=== PATIENT | female | born 1965 | race Caucasian/White ===

== ENCOUNTER → 2016-09-29 | Outpatient (CLI) | payer OTHER, MEDICARE ==
[~2016-09-29] MED LIST: AMBIEN PO; AMIT8CAP PO; BACTROBAN TOP; BELS1TAB4 PO; CALCCHW12 PO; CASCARA; COLA100C2; DICY10CA2 OR; DICY10CA2 PO; DICY10EL PO; FERR83TA OR; FISH1000 OR; FLECTOR PATCH; HYDR50TA8 PO; KLON0.5T; KLON1TAB; KLON1TAB OR; LIDO1DIS2 TD; LIDVISCBTL EXT; MELA3TAB PO; MELATONIN PO; META1.7W PO; MILKPOW PO; MIRALEX OR; MORP15TA4; MS C30TA2; MS C30TA2 PO; MSIR30TA PO; NECON; NECON PO; PSYLLIUM; SENN8.6T5; THERGRAN PO; VITAMIN B COMPLE1 PO; ZOLO100T PO; [UNRECOGNIZED DRUG - OTHER] OU; [UNRECOGNIZED DRUG - OTHER] PO; [UNRECOGNIZED DRUG - REMARK] PO; amitiza PO; steroid cream TOP
--- NOTE | 2016-10-29 00:09 | ECWPNPC ---
PATIENT NAME: ALESSANDRA LYNN : 1965 GENDER: FEMALE VISIT DATE: 09/29/2016 DISCHARGE DATE: 09/29/16 1642 VISIT LOCKED DATE TIME: PHYSICIAN: ROCÍO MERCER PHYSICIAN PAGER NO: [phone] RESOURCE: ROCÍO MERCER REASON FOR APPOINTMENT 1. BACK HISTORY OF PRESENT ILLNESS HISTORY OF PRESENT ILLNESS: PAIN THE PATIENT DESCRIBES THE PAIN... FALL RISK SCREENING: SCREENING :NO FALLS IN THE PAST YEAR TODAY'S VISIT: NOTES: RATES PAIN LEVEL TODAY 5/10. NOTES MORE AREAS OF NUMBNESS IN HANDS, FEET, AND MIDBACK. DESCRIBES PAIN ACHING, SORE, TENDER AND THROBBING. NOTES PAIN IS CONSTANT.. CURRENT MEDICATIONS TAKING VITAMIN D (CHOLECALCIFEROL) 5000 TABLET 1 TAB ORALLY ONCE A DAY TAKING CALCIUM 600 + D 600-400 MG-UNIT TABLET 1 TABLET ORALLY BID TAKING MULTIVITAMINS OTC TABLET 1 TABLET ORALLY ONCE A DAY TAKING MIRALAX POWDER POWDER 17 GM ORALLY ONCE A DAY TAKING MILK THISTLE 1 CAPSULE 1 CAP(S) ORALLY BID TAKING AMITIZA 8 MCG CAPSULE 1 TAB ORALLY BID PRN TAKING METAMUCIL 28.3 % POWDER DIRECTED ORALLY BEDTIME TAKING CUSTOM DO NO USE MORPHINE IR 30 MG 1 TAB(S) P.O. EVERY 4-6 HOURS NEEDED, MAXIMUM 6 TABLETS PER DAY TAKING VITAMIN B COMPLEX OTC TABLET 1 TABLET ORALLY ONCE A DAY TAKING FISH OIL 1000 MG CAPSULE 1 CAPSULE BY MOUTH ONCE A DAY TAKING PROBIOTIC - TABLET DELAYED RELEASE ORALLY TAKING LIDOCAINE VISCOUS 2 % SOLUTION 15 ML NEEDED TOPICALLY EVERY 3 HRS TAKING MUPIROCIN 2 % OINTMENT 1 APPLICATION TO EFFECTED AREA ON ARM, SMALL AMOUNT EXTERNALLY THREE TIMES A DAY ALFONSO (ORDER FROM [employer] MANUFACTUER) TAKING CAMPHOR-MENTHOL _ OINTMENT APPLY TOPICALLY EXTERNALLY TWICE A DAY X 7 DAYS WITH FLARES C CLOBETASOL 0.05% OINTMENT TAKING DICYCLOMINE HCL 10 MG CAPSULE 1 CAPSULES ORALLY THREE TIMES A DAY NEEDED FOR ABDOMINAL SPASM TAKING ZOLOFT 100 MG TABLET 2 TABLETS ORALLY ONCE A DAY TAKING HYDROXYZINE HCL 50 MG TABLET 2 TABLET ORALLY AT BEDTIME TAKING KLONOPIN 1 MG TABLET 1 TABLET ORALLY 2 TABS AT HS, 1 TAB PRN TAKING MORPHINE SULFATE 30 MG TABLET 1 TABLET ORALLY EVERY 4 HRS PRN PAIN MDD=6 NOT-TAKING MORPHINE SULFATE 30 MG TABLET 1 TABLET ORALLY EVERY 4 HRS PRN PAIN MDD=6 MEDICATION LIST REVIEWED AND RECONCILED WITH THE PATIENT PAST MEDICAL HISTORY NEURODERMATITIS-AGREED UPON BY KEON AND DR. JACQUELINE CASTRO AT [facility] DEPRESSION/ANXIETY SYNDROME CERVICAL/LUMBAR DJD BORDERLINE PROLONGED QTC SYNDROME/HISTORY OF SYNCOPE NOT CORRELATED TO CARDIAC ARRHYTHMIA IMPAIRED FASTING GLUCOSE INSOMNIA/RESTLESS LEG SYNDROME GERD/DYSPEPSIA DYSMENORRHEA IBS CONSTIPATION TYPE MITRAL VALVE PROLAPSE/TRACE MR BY TTE NOVEMBER 2010-[place] IRON-DEFICIENCY ANEMIA MUCOSAL PROLAPSE SYNDROME STATUS POST TEMS PROCEDURE-11/2011 COLONOSCOPY WITH RECTAL MUCOSAL INFLAMMATION AND SMALL AREA OF MID RECTAL DENUDED MUCOSA TYPICAL OF MUCOSAL PROLAPSE OTHERWISE NORMAL-[place] /08/10/14 P FAILED REPEAT TEMS, GIVEN DX OF SOLITARY RECTAL ULCERATIVE SYNDROME ALLERGIES NSAIDS: RINGING OF EARS: SIDE EFFECTS FISH OIL: SWELLING: SIDE EFFECTS SULFA: RASH,DIARRHEA: ALLERGY SOCIAL HISTORY GENERAL: TOBACCO USE ARE YOU A:NONSMOKER LEARNING BARRIERS / SPECIAL NEEDS ORIENTED TO PLAN OF CARE: PATIENT, PAIN MANAGEMENT PATIENT, ORIENTED TO PLAN OF CARE: PATIENT, PAIN MANAGEMENT PATIENT. NEW PATIENT PAIN DIARY TODAY'S VISITNOTES FROM 0-10, WHAT LEVEL IS YOUR PAIN TODAY?0 PAIN CLINIC PFS, CLERGY, PUBLIC HEALTH REFERRALS PFS REFERRAL NEEDED?NO CLERGY REFERRAL NEEDED?NO PUBLIC HEALTH REFERRAL NEEDED?NO WAS THE PROVIDER NOTIFIED OF ANY PERTINENT INFO?NO PFS REFERRAL NEEDED?NO CLERGY REFERRAL NEEDED?NO PUBLIC HEALTH REFERRAL NEEDED?NO WAS THE PROVIDER NOTIFIED OF ANY PERTINENT INFO?NO REVIEW OF SYSTEMS CONSTITUTIONAL: ANY CHANGE IN YOUR MEDICAL CONDITION? NO . CHILLS NO . FEVER NO . INFECTION: DO YOU HAVE NEW INFECTIONS? NO . DO YOU HAVE HISTORY OF MRSA? NO . MUSCULOSKELETAL: ANY NEW PATTERNS OF PAIN OR NUMBNESS? NO . GASTROENTEROLOGY: ANY NEW CHANGE IN BOWEL CONTROL? NO . GENITOURINARY: ANY NEW CHANGE IN BLADDER CONTROL? NO . IS THERE A CHANCE YOU COULD BE ? NO . HEMATOLOGY/LYMPH: DO YOU TAKE ANY BLOOD THINNERS? (FOR EXAMPLE- COUMADIN, PLAVIX, AGGRENOX, PLATEL, PRADAXA, OR XARELTO) NO . WHEN WAS YOUR LAST DOSE? DATE: TIME: . NEUROLOGY: HAVE YOU FALLEN IN THE PAST 6 MONTHS? YES SEVERAL TIMES, NO INJURY . ANY NEW EXTREMITY NUMBNESS OR WEAKNESS? YES,INCREASE IN ARM NUMBNESS . CARDIOLOGY: DO YOU HAVE A PACEMAKER OR DEFIBRILLATOR? NO . RESPIRATORY: HAVE YOU BEEN SICK IN THE PAST WEEK? NO . FEVER NO . FLU LIKE SYMPTOMS? NO . COUGH NO . INTEGUMENTARY: DO YOU HAVE ANY RASHES OR OPEN SORES? YES, SORE LEFT HAND, CYST UNDER IT. RASH ON FACE . ALLERGIC/IMMUNO: ARE YOU ALLERGIC TO SHELLFISH OR IV DYE? NO . ANY NEW ALLERGIES? NO . PSYCHIATRIC: DO YOU HAVE THOUGHTS OF HURTING YOURSELF OR SOMEONE ELSE? NO . ARE YOU ABUSED, NEGLECTED, OR IN AN UNSAFE ENVIRONMENT? NO . ENDOCRINOLOGY: ARE YOU DIABETIC? NO . OTHER: DO YOU NEED ANY PRESCRIPTIONS? NO . IF YES, PLEASE LIST: ____ . ANY NEW PROBLEMS WITH YOUR MEDICATIONS? NO . WHEN DID YOU LAST EAT? ____ . WHEN DID YOU LAST DRINK? ____ . WHAT DID YOU LAST DRINK? ____ . NAME OF PERSON DRIVING YOU HOME? ____ . DO YOU HAVE ANY OTHER QUESTIONS OR CONCERNS NO . REVIEWED BY: PROVIDER: ROCÍO ROSENTHAL . VITAL SIGNS WT 175 LBS, HT 65 IN, BMI 29.12 INDEX, BP 142/84 MM HG, HR 55 /MIN, RR 16 /MIN, TEMP 97.7 F, OXYGEN SAT % 96, NA INITIALS TL 1543, REVIEWED BY: AD. EXAMINATION GENERAL EXAMINATION: PSYCHALERT , ORIENTED X 3 , APPROPRIATE MOOD AND AFFECT , TALKATIVE. LUNGS:CLEAR TO AUSCULTATION BILATERALLY. HEART: II/ SYSTOLIC MURMUR. MUSCULOSKELETAL:MUSCLE STRENGTH TESTING 5/5 BILATERAL UPPER AND LOWER EXTREMITIES, TRIGGER POINTS:, ELICITED WITH PALPATION OVER LUMBAR PARAVERTEBRAL MUSCLES AND INTO THE SECRUM. RESTRICTION OF ROM IN THIS AREA. ASSESSMENTS RECTAL PAIN, CHRONIC - K62.89 (PRIMARY) CHRONIC PRESCRIPTION OPIATE USE - Z79.899 LUMBAR DISC DISEASE WITH RADICULOPATHY - M51.16 TREATMENT RECTAL PAIN, CHRONIC REFILL MORPHINE SULFATE TABLET, 30 MG, 1 TABLET, ORALLY, EVERY 4 HRS PRN PAIN MDD=6, 30 DAY(S), 180, REFILLS 0 NOTES: CONTINUE CURRENT MEDS. WATCH CAREFULLY TO TRY TO PREVENT FALLS.UTOX TODAY. DISPOSITION & COMMUNICATION FOLLOW UP 2 MONTHS ELECTRONICALLY SIGNED BY ARNOLD OWEN ON 10/25/2016 AT 12:17 PM EST DISCLAIMER : THIS IS A VISIT SUMMARY EXTRACTED FROM THE [employer] CHART. IT IS NOT A COPY OF THE [employer] PROGRESS NOTE. KENNETH
== END ==
LOC: M PAIN 15:00
PROVIDERS: ATTEND Nurse Practitioner Family
DX: K62.89 Other specified diseases of anus and rectum (principal); M51.16 Intervertebral disc disorders with radiculopathy, lumbar region; M54.2 Cervicalgia; F32.9 Major depressive disorder, single episode, unspecified; Z79.891 Long term (current) use of opiate analgesic; Z79.899 Other long term (current) drug therapy; Z88.8 Allergy status to other drugs, medicaments and biological substances; Z91.013 Allergy to seafood

== ENCOUNTER → 2016-12-11 | Outpatient (CLI) | payer OTHER, MEDICARE ==
[2016-12-11 16:46] LABS: BASO % 0.4 % (0.0-1.0); EOS # 0.1 K/mm3 (0.0-0.50); EOS % 2.2 % (0.0-3.0); LARGE UNSTAINED CELL # 0.1 K/mm3 (0.0-0.4); LARGE UNSTAINED CELL % 1.3 % (0.0-4.0); LYMPH # 0.8 K/mm3 (1.5-4.5); LYMPH % 16.8 % (24.0-44.0); MEAN CORPUSCULAR HEMOGLOBIN 26.1 pg (27.0-33.0); MEAN CORPUSCULAR HGB CONC 31.8 g/dl (32.0-36.5); MEAN CORPUSCULAR VOLUME 82.2 fl (80.0-96.0); MONO # 0.2 K/mm3 (0.0-0.8); MONO % 4.8 % (0.0-5.0); NEUTROPHILS # 3.4 K/mm3 (1.8-7.7); NEUTROPHILS % 74.5 % (36.0-66.0); PLATELET COUNT, AUTOMATED 343 k/mm3 (150-450); RED CELL DISTRIBUTION WIDTH 13.3 % (11.5-14.5); WHITE BLOOD COUNT 4.6 K/mm3 (4.0-10.0)
[2016-12-11 16:50] LABS: ADD MORPHOLOGY? YES; INR 1.01
[2016-12-11 17:38] LABS: ALBUMIN 3.7 GM/DL (3.2-5.2); ALBUMIN/GLOBULIN RATIO 1.42 (1.00-1.93); ALKALINE PHOSPHATASE 114 U/L (45-117); ALT/SGPT 22 U/L (12-78); ANION GAP 6 MEQ/L (8-16); AST/SGOT 12 U/L (15-37); BILIRUBIN,TOTAL 0.3 MG/DL (0.2-1.0); BLOOD UREA NITROGEN 11 MG/DL (7-18); CALCIUM LEVEL 8.8 MG/DL (8.5-10.1); CARBON DIOXIDE LEVEL 27 MEQ/L (21-32); CHLORIDE LEVEL 107 MEQ/L (98-107); CREATININE FOR GFR 0.83 MG/DL (0.55-1.02); FERRITIN 9 NG/ML (8-252); GLOMERULAR FILTRATION RATE > 60.0 (>51); GLUCOSE, FASTING 100 MG/DL (70-105); PERCENT SATURATION 2.8 % (13.2-37.4); POTASSIUM SERUM 3.7 MEQ/L (3.5-5.1); SODIUM LEVEL 140 MEQ/L (136-145); TOTAL IRON BINDING CAPACITY 361 UG/DL (250-450); TOTAL PROTEIN 6.3 GM/DL (6.4-8.2)
[2016-12-11 18:06] LABS: ERYTHROCYTE SEDIMENTATION RATE 49 mm/hr (0-30)
[2016-12-11 19:15] LABS: HYPOCHROMASIA 1+
[2016-12-15 00:08] LABS: Chitobioside Carbohydrat (ACCA 25 units (0-90); Laminaribioside Carbohyd (ALCA 1 units (0-60); Mannobioside Carbohydrat (AMCA 15 units (0-100); Saccharomyces cerevisiae IgG A 7 units (0-50)
== END ==
LOC: M LAB 16:14
PROVIDERS: ATTEND Family Medicine
DX: E55.9 Vitamin D deficiency, unspecified (principal); K58.8 Other irritable bowel syndrome; K62.3 Rectal prolapse

== ENCOUNTER → 2016-12-11 | Outpatient (CLI) | payer OTHER, MEDICARE ==
--- NOTE | 2016-12-21 23:53 | ECWPNPC ---
PATIENT NAME: ALESSANDRA LYNN : 1965 GENDER: FEMALE VISIT DATE: 12/11/2016 DISCHARGE DATE: 12/11/16 1600 VISIT LOCKED DATE TIME: PHYSICIAN: ROCÍO MERCER PHYSICIAN PAGER NO: [phone] RESOURCE: ROCÍO MERCER REASON FOR APPOINTMENT 1. FOLLOWUP HISTORY OF PRESENT ILLNESS HISTORY OF PRESENT ILLNESS: PAIN THE PATIENT DESCRIBES THE PAIN... THE PATIENT DESCRIBES THE PAIN... THE PATIENT DESCRIBES THE PAIN... PAIN THE PATIENT DESCRIBES THE PAIN... THE PATIENT DESCRIBES THE PAIN... THE PATIENT DESCRIBES THE PAIN... PAIN THE PATIENT DESCRIBES THE PAIN... THE PATIENT DESCRIBES THE PAIN... THE PATIENT DESCRIBES THE PAIN... FALL RISK SCREENING: SCREENING :NO FALLS IN THE PAST YEAR :NO FALLS IN THE PAST YEAR :NO FALLS IN THE PAST YEAR SCREENING :NO FALLS IN THE PAST YEAR :NO FALLS IN THE PAST YEAR :NO FALLS IN THE PAST YEAR SCREENING :NO FALLS IN THE PAST YEAR :NO FALLS IN THE PAST YEAR :NO FALLS IN THE PAST YEAR TODAY'S VISIT: NOTES: RATES PAIN TODAY 5/10. DESCRIBES THE PAIN CONSTANT, ACHING, TENDER AND SORE. NOTES PAIN IS CENTERED AT LOW BACK, LEFT NECK AND SHOULDER BLADE AND WITH NUMBNESS IN HANDS AND FEET. CAN DISTINGUISH THE DIFFERENCE BETWEEN RECTAL/ABDOMINAL PAIN, BACK PAIN AND OTHER DISCOMFORT. STATES IS HAVING NO ADVERSE EFFECTS FROM CURRENT MEDS. IS LOOKING FOR A NEW COLORECTAL SURGEON CURRENT SURGEON IN [place] HAS LEFT THE AREA.. CURRENT MEDICATIONS TAKING VITAMIN D (CHOLECALCIFEROL) 5000 TABLET 1 TAB ORALLY ONCE A DAY TAKING CALCIUM 600 + D 600-400 MG-UNIT TABLET 1 TABLET ORALLY BID TAKING MULTIVITAMINS OTC TABLET 1 TABLET ORALLY ONCE A DAY TAKING MILK THISTLE 1 CAPSULE 1 CAP(S) ORALLY BID TAKING KLONOPIN 1 MG TABLET 2 TABLETS ORALLY AT BEDTIME TAKING DICYCLOMINE HCL 10 MG CAPSULE 1 CAPSULES ORALLY THREE TIMES A DAY NEEDED FOR ABDOMINAL SPASM TAKING AMITIZA 8 MCG CAPSULE 1 TAB ORALLY BID PRN TAKING MIRALAX POWDER POWDER 17 GM ORALLY ONCE A DAY TAKING METAMUCIL 28.3 % POWDER DIRECTED ORALLY BEDTIME TAKING MUPIROCIN 2 % OINTMENT 1 APPLICATION TO EFFECTED AREA ON ARM, SMALL AMOUNT EXTERNALLY THREE TIMES A DAY ALFONSO (ORDER FROM [employer] MANUFACTUER) TAKING CAMPHOR-MENTHOL _ OINTMENT APPLY TOPICALLY EXTERNALLY TWICE A DAY X 7 DAYS WITH FLARES C CLOBETASOL 0.05% OINTMENT TAKING VITAMIN B COMPLEX OTC TABLET 1 TABLET ORALLY ONCE A DAY TAKING FISH OIL 1000 MG CAPSULE 1 CAPSULE BY MOUTH ONCE A DAY TAKING PROBIOTIC - TABLET DELAYED RELEASE ORALLY TAKING CUSTOM DO NO USE MORPHINE IR 30 MG 1 TAB(S) P.O. EVERY 4-6 HOURS NEEDED, MAXIMUM 6 TABLETS PER DAY TAKING ZOLOFT 100 MG TABLET 2 TABLETS ORALLY ONCE A DAY TAKING HYDROXYZINE HCL 50 MG TABLET 2 TABLET ORALLY AT BEDTIME MEDICATION LIST REVIEWED AND RECONCILED WITH THE PATIENT PAST MEDICAL HISTORY NEURODERMATITIS-AGREED UPON BY KEON AND DR. JACQUELINE CASTRO AT [facility] DEPRESSION/ANXIETY SYNDROME CERVICAL/LUMBAR DJD BORDERLINE PROLONGED QTC SYNDROME/HISTORY OF SYNCOPE NOT CORRELATED TO CARDIAC ARRHYTHMIA IMPAIRED FASTING GLUCOSE INSOMNIA/RESTLESS LEG SYNDROME GERD/DYSPEPSIA DYSMENORRHEA IBS CONSTIPATION TYPE MITRAL VALVE PROLAPSE/TRACE MR BY TTE NOVEMBER 2010-[facility] IRON-DEFICIENCY ANEMIA MUCOSAL PROLAPSE SYNDROME STATUS POST TEMS PROCEDURE-11/2011 COLONOSCOPY WITH RECTAL MUCOSAL INFLAMMATION AND SMALL AREA OF MID RECTAL DENUDED MUCOSA TYPICAL OF MUCOSAL PROLAPSE OTHERWISE NORMAL-[place] /08/10/14 P FAILED REPEAT TEMS, GIVEN DX OF SOLITARY RECTAL ULCERATIVE SYNDROME ULCERATIVE COLITIS ALLERGIES NSAIDS: RINGING OF EARS: SIDE EFFECTS FISH OIL (CERTAIN BRANDS ONLY): SWELLING: SIDE EFFECTS SULFA: RASH,DIARRHEA: ALLERGY SURGICAL HISTORY TEMS-[facility] AT [place] 07/2011 FELL DOING LAUNDRY, BROKE L FEMUR WITH ORIF 2000 SOCIAL HISTORY GENERAL: PAIN CLINIC PFS, CLERGY, PUBLIC HEALTH REFERRALS CLERGY REFERRAL NEEDED?NO WAS THE PROVIDER NOTIFIED OF ANY PERTINENT INFO?NO PFS REFERRAL NEEDED?NO PUBLIC HEALTH REFERRAL NEEDED?NO CLERGY REFERRAL NEEDED?NO WAS THE PROVIDER NOTIFIED OF ANY PERTINENT INFO?NO PFS REFERRAL NEEDED?NO PUBLIC HEALTH REFERRAL NEEDED?NO CLERGY REFERRAL NEEDED?NO WAS THE PROVIDER NOTIFIED OF ANY PERTINENT INFO?NO PFS REFERRAL NEEDED?NO PUBLIC HEALTH REFERRAL NEEDED?NO PATIENT: ____, ____, ____. HOSPITALIZATION/MAJOR DIAGNOSTIC PROCEDURE FELL DOING LAUNDRY, BROKE L FEMUR WITH ORIF 2000 REVIEW OF SYSTEMS CONSTITUTIONAL: ANY CHANGE IN YOUR MEDICAL CONDITION? YES PT REPORTS BLOOD CLOTS IN ABDOMEN AND VAGINAL AREA, AND NEW POLYPS . CHILLS NO, NO, NO . FEVER NO, NO, NO . INFECTION: DO YOU HAVE NEW INFECTIONS? NO, NO, NO . DO YOU HAVE HISTORY OF MRSA? NO, NO, NO . MUSCULOSKELETAL: ANY NEW PATTERNS OF PAIN OR NUMBNESS? NO, NO, NO . GASTROENTEROLOGY: ANY NEW CHANGE IN BOWEL CONTROL? IS DUE FOR COLONOSCOPY THIS YEAR AND IS CONCERNED BOUT WHO WILL DOING IT AND THEIR EXPERIECE WITH HER DISEASE . GENITOURINARY: ANY NEW CHANGE IN BLADDER CONTROL? NO, NO, NO . IS THERE A CHANCE YOU COULD BE ? NO, NO, NO . HEMATOLOGY/LYMPH: DO YOU TAKE ANY BLOOD THINNERS? (FOR EXAMPLE- COUMADIN, PLAVIX, AGGRENOX, PLATEL, PRADAXA, OR XARELTO) NO, NO, NO . WHEN WAS YOUR LAST DOSE? DATE: TIME: , DATE: TIME: , DATE: TIME: . NEUROLOGY: HAVE YOU FALLEN IN THE PAST 6 MONTHS? NO, NO, NO . ANY NEW EXTREMITY NUMBNESS OR WEAKNESS? NO, NO, NO . CARDIOLOGY: DO YOU HAVE A PACEMAKER OR DEFIBRILLATOR? NO, NO, NO . RESPIRATORY: HAVE YOU BEEN SICK IN THE PAST WEEK? NO, NO, NO . FEVER NO, NO, NO . FLU LIKE SYMPTOMS? NO, NO, NO . COUGH NO, NO, NO . INTEGUMENTARY: DO YOU HAVE ANY RASHES OR OPEN SORES? NO, NO, NO . ALLERGIC/IMMUNO: ARE YOU ALLERGIC TO SHELLFISH OR IV DYE? NO, NO, NO . ANY NEW ALLERGIES? NO, NO, NO . PSYCHIATRIC: DO YOU HAVE THOUGHTS OF HURTING YOURSELF OR SOMEONE ELSE? NO, NO, NO . ARE YOU ABUSED, NEGLECTED, OR IN AN UNSAFE ENVIRONMENT? NO, NO, NO . ENDOCRINOLOGY: ARE YOU DIABETIC? NO, NO, NO . OTHER: DO YOU NEED ANY PRESCRIPTIONS? NO, NO, NO . IF YES, PLEASE LIST: ____, ____, ____ . ANY NEW PROBLEMS WITH YOUR MEDICATIONS? NO, NO, NO . WHEN DID YOU LAST EAT? ____, ____, ____ . WHEN DID YOU LAST DRINK? ____, ____, ____ . WHAT DID YOU LAST DRINK? ____, ____, ____ . NAME OF PERSON DRIVING YOU HOME? ____, ____, ____ . DO YOU HAVE ANY OTHER QUESTIONS OR CONCERNS NO, NO, NO . FEMALE REPRODUCTIVE: VAGINAL SPOTTING AND BLEEDING FROM PLACQUE-LIKE LESIONS. SCHEDULED FOR PELVIC ULTRAOUND. . REVIEWED BY: PROVIDER: ROCÍO ROSENTHAL . VITAL SIGNS WT 181.5 LBS, HT 65 IN, BMI 30.20 INDEX, BP 165/68 MM HG, HR 81 /MIN, RR 18 /MIN, TEMP 98.7 F, OXYGEN SAT % 95%, NA INITIALS SC 15:07, REVIEWED BY: LS. EXAMINATION GENERAL EXAMINATION: GENERAL APPEARANCE:NO ACUTE DISTRESS. NECK:NO LYMPHADENOPATHY, SUPPLE, NO THYROMEGALY. LUNGS:CLEAR TO AUSCULTATION BILATERALLY, NO WHEEZES, RHONCHI, RALES. HEART:NO MURMURS, REGULAR RATE AND RHYTHM, . MUSCULOSKELETAL:TRIGGER POINTS AND TIGHT FIBROUS BANDS OVER LSA.. EXTREMITIES:NO EDEMA. SKIN:, HYPOPIGMENTED PATCHES, OPEN LESIONS NOTED ON FACE, BOTH HANDS. NEUROLOGIC EXAM:NON-FOCAL EXAM. ASSESSMENTS RECTAL PAIN, CHRONIC - K62.89 (PRIMARY) CHRONIC PRESCRIPTION OPIATE USE - Z79.899 LUMBAR DISC DISEASE WITH RADICULOPATHY - M51.16 TREATMENT RECTAL PAIN, CHRONIC NOTES: UTOX TODAYCONSIDER DISCUSSION OF REFERRAL TO [facility]. CONTINUE CURRENT MEDS. CLINICAL NOTES: ISTOP REGISTRY REVIEWED AND DEMNOSTRATES COMPLLIANCE. BRINGS IN MEDICATIONS WHICH IS APPROPRIATE FOR WHAT WAS DISPENSED. RECENT URINE TOXICOLOGY REVIEWED. NO UNAUTHORIZED MEDICATIONS. NO ILLICIT SUBSTANCES AND PRESCRIBED MEDICATIONS WERE PRESENT. DISPOSITION & COMMUNICATION FOLLOW UP 7 WEEKS ELECTRONICALLY SIGNED BY ARNOLD OWEN ON 12/21/2016 AT 09:23 AM EDT DISCLAIMER : THIS IS A VISIT SUMMARY EXTRACTED FROM THE [employer] CHART. IT IS NOT A COPY OF THE [employer] PROGRESS NOTE. KENNETH
== END ==
LOC: M PAIN 14:40
PROVIDERS: ATTEND Nurse Practitioner Family
DX: Z09 Encounter for follow-up examination after completed treatment for conditions other than malignant neoplasm (principal); G89.29 Other chronic pain; K62.89 Other specified diseases of anus and rectum; M51.16 Intervertebral disc disorders with radiculopathy, lumbar region; F32.9 Major depressive disorder, single episode, unspecified; F41.9 Anxiety disorder, unspecified; R73.01 Impaired fasting glucose; G25.81 Restless legs syndrome; G47.00 Insomnia, unspecified; K30 Functional dyspepsia; D50.9 Iron deficiency anemia, unspecified; K51.90 Ulcerative colitis, unspecified, without complications; Z88.6 Allergy status to analgesic agent; Z88.2 Allergy status to sulfonamides; Z88.8 Allergy status to other drugs, medicaments and biological substances; Z79.899 Other long term (current) drug therapy

== ENCOUNTER → 2017-03-01 | Outpatient (CLI) | payer OTHER, MEDICARE ==
--- NOTE | 2017-03-21 01:26 | ECWPNPC ---
PATIENT NAME: ALESSANDRA LYNN : 1965 GENDER: FEMALE VISIT DATE: 03/01/2017 DISCHARGE DATE: 03/01/17 1655 VISIT LOCKED DATE TIME: PHYSICIAN: ROCÍO MERCER PHYSICIAN PAGER NO: [phone] RESOURCE: ROCÍO MERCER HISTORY OF PRESENT ILLNESS HISTORY OF PRESENT ILLNESS: PAIN THE PATIENT DESCRIBES THE PAIN... FALL RISK SCREENING: SCREENING :NO FALLS IN THE PAST YEAR TODAY'S VISIT: NOTES: RATES PAIN TODAY 5/10. REPORTS PAIN IS CONSTANT, ACHING, SHARP AND STABBING, AND SORE. CONTINUES TO HAVE NUMBNESS IN HANDS AND FEET. REPORTS WAS HOSPITALIZED IN DECEMBER FOR CRITICALLY LOW IRON. THIS WAS NOT A PLEASANT EXPERIENCE. WAS GIVEN PACKED RBC'S AND IRON TRANSFUSIONS. REMAINS FATIGUED AND SHORT OF BREATH WITH EXERTION. IS NOT CURRENTLY ON ANY PLAN FOR REPEAT IRON INFUSIONS. IS VERY SENSITTIVE TO GLUTEN AND DAIRY. IS WATCHING DIET CAREFULLY.. CURRENT MEDICATIONS TAKING VITAMIN D (CHOLECALCIFEROL) 5000 TABLET 1 TAB ORALLY ONCE A DAY TAKING CALCIUM 600 + D 600-400 MG-UNIT TABLET 1 TABLET ORALLY BID TAKING MULTIVITAMINS OTC TABLET 1 TABLET ORALLY ONCE A DAY TAKING MILK THISTLE 1 CAPSULE 1 CAP(S) ORALLY BID TAKING DICYCLOMINE HCL 10 MG CAPSULE 1 CAPSULES ORALLY THREE TIMES A DAY NEEDED FOR ABDOMINAL SPASM TAKING AMITIZA 8 MCG CAPSULE 1 TAB ORALLY BID PRN TAKING MIRALAX POWDER POWDER 17 GM ORALLY ONCE A DAY TAKING METAMUCIL 28.3 % POWDER DIRECTED ORALLY BEDTIME TAKING MUPIROCIN 2 % OINTMENT 1 APPLICATION TO EFFECTED AREA ON ARM, SMALL AMOUNT EXTERNALLY THREE TIMES A DAY ALFONSO (ORDER FROM [employer] [employer] MANUFACT[employer]ER) TAKING CAMPHOR-MENTHOL _ OINTMENT APPLY TOPICALLY EXTERNALLY TWICE A DAY X 7 DAYS WITH FLARES C CLOBETASOL 0.05% OINTMENT TAKING VITAMIN B COMPLEX OTC TABLET 1 TABLET ORALLY ONCE A DAY TAKING FISH OIL 1000 MG CAPSULE 1 CAPSULE BY MOUTH ONCE A DAY TAKING PROBIOTIC - TABLET DELAYED RELEASE ORALLY TAKING CUSTOM DO NO USE MORPHINE IR 30 MG 1 TAB(S) P.O. EVERY 4-6 HOURS NEEDED, MAXIMUM 6 TABLETS PER DAY TAKING HYDROXYZINE HCL 50 MG TABLET 2 TABLET ORALLY AT BEDTIME TAKING ZOLOFT 100 MG TABLET 2 TABLETS ORALLY ONCE A DAY TAKING KLONOPIN 1 MG TABLET 2 TABLETS ORALLY AT BEDTIME OR ONE ADDITIONAL WHEN NEEDED TAKING MORPHINE SULFATE 30 MG TABLET 1 TABLET NEEDED ORALLY EVERY 4 HRS PRN PAIN MDD=6 PAST MEDICAL HISTORY NEURODERMATITIS-AGREED UPON BY KEON AND DR. JACQUELINE CASTRO AT [facility] DEPRESSION/ANXIETY SYNDROME CERVICAL/LUMBAR DJD BORDERLINE PROLONGED QTC SYNDROME/HISTORY OF SYNCOPE NOT CORRELATED TO CARDIAC ARRHYTHMIA IMPAIRED FASTING GLUCOSE INSOMNIA/RESTLESS LEG SYNDROME GERD/DYSPEPSIA DYSMENORRHEA IBS CONSTIPATION TYPE MITRAL VALVE PROLAPSE/TRACE MR BY TTE NOVEMBER 2010-[place] IRON-DEFICIENCY ANEMIA MUCOSAL PROLAPSE SYNDROME STATUS POST TEMS PROCEDURE-11/2011 COLONOSCOPY WITH RECTAL MUCOSAL INFLAMMATION AND SMALL AREA OF MID RECTAL DENUDED MUCOSA TYPICAL OF MUCOSAL PROLAPSE OTHERWISE NORMAL-[place] /08/10/14 P FAILED REPEAT TEMS, GIVEN DX OF SOLITARY RECTAL ULCERATIVE SYNDROME ULCERATIVE COLITIS ALLERGIES NSAIDS: RINGING OF EARS: SIDE EFFECTS FISH OIL (CERTAIN BRANDS ONLY): SWELLING: SIDE EFFECTS SULFA: RASH,DIARRHEA: ALLERGY SURGICAL HISTORY TEMS-[place] AT [place] 07/2011 FELL DOING LAUNDRY, BROKE L FEMUR WITH ORIF 2000 HOSPITALIZATION/MAJOR DIAGNOSTIC PROCEDURE FELL DOING LAUNDRY, BROKE L FEMUR WITH ORIF 2000 IRON DEFICIENCY ANEMIA 12/2016 REVIEW OF SYSTEMS REVIEWED BY: PROVIDER: ROCÍO ROSENTHAL . CONSTITUTIONAL: ANY CHANGE IN YOUR MEDICAL CONDITION? YES, LOW IRON BLOOD . CHILLS NO . FEVER NO . INFECTION: DO YOU HAVE NEW INFECTIONS? NO . DO YOU HAVE HISTORY OF MRSA? NO . MUSCULOSKELETAL: ANY NEW PATTERNS OF PAIN OR NUMBNESS? YES . KNEE PAIN RIGHT KNEE PAIN - WITH 3 BANDS OF SHARP SHOOTING PAIN RADIATING ACROSS HHORIZONTALLY ACROSS THE KNEE . GASTROENTEROLOGY: ANY NEW CHANGE IN BOWEL CONTROL? NO . GENITOURINARY: ANY NEW CHANGE IN BLADDER CONTROL? NO . IS THERE A CHANCE YOU COULD BE ? NO . HEMATOLOGY/LYMPH: DO YOU TAKE ANY BLOOD THINNERS? (FOR EXAMPLE- COUMADIN, PLAVIX, AGGRENOX, PLATEL, PRADAXA, OR XARELTO) NO . WHEN WAS YOUR LAST DOSE? DATE: TIME: . NEUROLOGY: HAVE YOU FALLEN IN THE PAST 6 MONTHS? NO . ANY NEW EXTREMITY NUMBNESS OR WEAKNESS? NO . CARDIOLOGY: DO YOU HAVE A PACEMAKER OR DEFIBRILLATOR? NO . CHEST PAIN PATIENT DENIES . IRREGULAR HEART BEAT PAC'S AND PVCS . HX OF QTC PROLONGATION AND MITRAL VALVE PROLAPSE WELL BRADYCARDIA&NBSP;. RESPIRATORY: HAVE YOU BEEN SICK IN THE PAST WEEK? NO . FEVER NO . FLU LIKE SYMPTOMS? NO . COUGH NO . INTEGUMENTARY: DO YOU HAVE ANY RASHES OR OPEN SORES? YES . ALLERGIC/IMMUNO: ARE YOU ALLERGIC TO SHELLFISH OR IV DYE? NO . ANY NEW ALLERGIES? NO . PSYCHIATRIC: DO YOU HAVE THOUGHTS OF HURTING YOURSELF OR SOMEONE ELSE? NO . ARE YOU ABUSED, NEGLECTED, OR IN AN UNSAFE ENVIRONMENT? NO . ENDOCRINOLOGY: ARE YOU DIABETIC? NO . OTHER: DO YOU NEED ANY PRESCRIPTIONS? NO . IF YES, PLEASE LIST: ____ . ANY NEW PROBLEMS WITH YOUR MEDICATIONS? NO . WHEN DID YOU LAST EAT? ____ . WHEN DID YOU LAST DRINK? ____ . WHAT DID YOU LAST DRINK? ____ . NAME OF PERSON DRIVING YOU HOME? ____ . DO YOU HAVE ANY OTHER QUESTIONS OR CONCERNS NO . VITAL SIGNS WT 176.6 LBS, HT 65 IN, BMI 29.38 INDEX, BP 154/84 MM HG, HR 60 /MIN, RR 16 /MIN, TEMP 97.6 F, OXYGEN SAT % 98%, SAFE IN ENV? (Y/N) YES, NA INITIALS TL 1436, REVIEWED BY: VD. EXAMINATION GENERAL EXAMINATION: PSYCHALERT , ALERT , APPROPRIATE MOOD AND AFFECT , VOICE LOUD. LUNGS:CLEAR TO AUSCULTATION BILATERALLY. HEART:HEART RATE REGULAR, , 1/6 MURMUR PRESENT. MUSCULOSKELETAL:TRIGGER POINTS AND TIGHT FIBROUS BANDS IDENTIED OVER CERVIAL AND TRAPEZIUS MUSCLES ANS WELLL ACROSS THE LUMBOSACRAL AXIS. POINT TENDERNESS OVER LUMBAR SPINOUS PROCESSES. EXTREMITIES:TRACE EDEMA BILATERAL LOWER EXTREMITIES. SKIN:FACE FLUSHED, MULTIPLE LESIONS ON THE UPPER EXTREMITIES. ASSESSMENTS RECTAL PAIN, CHRONIC - K62.89 (PRIMARY) CHRONIC PRESCRIPTION OPIATE USE - Z79.899 LUMBAR DISC DISEASE WITH RADICULOPATHY - M51.16 TREATMENT RECTAL PAIN, CHRONIC NOTES: CONTINUE CURRENT MEDS. CLINICAL NOTES: ISTOP REGISTRY REVIEWED AND DEMNOSTRATES COMPLLIANCE. BRINGS IN MEDICATIONS WHICH IS APPROPRIATE FOR WHAT WAS DISPENSED. RECENT URINE TOXICOLOGY REVIEWED. NO UNAUTHORIZED MEDICATIONS. NO ILLICIT SUBSTANCES AND PRESCRIBED MEDICATIONS WERE PRESENT. PROCEDURE CODES FA211 ESTABILISHED PATIENT [facility] CHARGE DISPOSITION & COMMUNICATION FOLLOW UP APRIL - COORDINATE WITH VISIT WITH DR BRYANT (REASON: BACK PAIN) ELECTRONICALLY SIGNED BY ARNOLD OWEN ON 03/20/2017 AT 06:22 PM EDT DISCLAIMER : THIS IS A VISIT SUMMARY EXTRACTED FROM THE [employer] CHART. IT IS NOT A COPY OF THE [employer] PROGRESS NOTE. KENNETH
== END ==
LOC: M PAIN 15:00
PROVIDERS: ATTEND Nurse Practitioner Family
DX: K62.89 Other specified diseases of anus and rectum (principal); Z79.891 Long term (current) use of opiate analgesic; Z79.899 Other long term (current) drug therapy; M51.16 Intervertebral disc disorders with radiculopathy, lumbar region; Z88.8 Allergy status to other drugs, medicaments and biological substances; Z88.2 Allergy status to sulfonamides; Z91.013 Allergy to seafood; F32.9 Major depressive disorder, single episode, unspecified; E78.5 Hyperlipidemia, unspecified; F41.9 Anxiety disorder, unspecified; E55.9 Vitamin D deficiency, unspecified

== ENCOUNTER → 2017-05-10 | Outpatient (CLI) | payer OTHER, MEDICARE ==
--- NOTE | 2017-05-29 02:47 | ECWPNPC ---
PATIENT NAME: ALESSANDRA LYNN : 1965 GENDER: FEMALE VISIT DATE: 05/10/2017 DISCHARGE DATE: 05/10/17 1548 VISIT LOCKED DATE TIME: PHYSICIAN: ROCÍO MERCER PHYSICIAN PAGER NO: [phone] RESOURCE: ROCÍO MERCER REASON FOR APPOINTMENT 1. BACK HISTORY OF PRESENT ILLNESS HISTORY OF PRESENT ILLNESS: PAIN THE PATIENT DESCRIBES THE PAIN... FALL RISK SCREENING: SCREENING :NO FALLS IN THE PAST YEAR TODAY'S VISIT: NOTES: HAD RECENT EXTENSIVE ROAD TRIP AND HAS NOT BEEN FEELING WELL SINCE. MENSTRAL CYCLE STARTED BEFORE LEFT. ATE GLUTEN UNEXPECTEDLY AND HAD GI ILLNESS AND SEVERE RECTAL BLEEDING. HAD FLAIR OF SKIN LESIONS AND CANKER SORES. RATES PAIN LEVEL TODAY 6/10. DESCRIBES PAIN CONSTANT AND ACHING, WELL TENDER AND SORE . HAS AREAS OF NUMBNESS IN BOTH ARMS, CENTER OF MID BACK OVER SPINE AND BOTH FEET. CONTINUES TO REPORT SHARP STABBING RECTAL PAIN WITH INTERMITTANT PERFUSE RECTAL BELLEDING.. CURRENT MEDICATIONS TAKING MILK THISTLE 1 CAPSULE 1 CAP(S) ORALLY BID TAKING METAMUCIL 28.3 % POWDER DIRECTED ORALLY BEDTIME TAKING MUPIROCIN 2 % OINTMENT 1 APPLICATION TO EFFECTED AREA ON ARM, SMALL AMOUNT EXTERNALLY THREE TIMES A DAY ALFONSO (ORDER [facility] [employer] [facility]) TAKING CAMPHOR-MENTHOL _ OINTMENT APPLY TOPICALLY EXTERNALLY TWICE A DAY X WITH FLARES C CLOBETASOL 0.05% OINTMENT TAKING VITAMIN B COMPLEX OTC TABLET 1 TABLET ORALLY ONCE A DAY TAKING FISH OIL 1000 MG CAPSULE 1 CAPSULE BY MOUTH ONCE A DAY TAKING PROBIOTIC - TABLET DELAYED RELEASE ORALLY TAKING CUSTOM DO NO USE MORPHINE IR 30 MG 1 TAB(S) P.O. EVERY 4-6 HOURS NEEDED, MAXIMUM 6 TABLETS PER DAY TAKING MIRALAX POWDER POWDER 17 GM ORALLY ONCE A DAY TAKING AMITIZA 8 MCG CAPSULE 1 TAB ORALLY BID PRN TAKING DICYCLOMINE HCL 10 MG CAPSULE 1 CAPSULES ORALLY THREE TIMES A DAY NEEDED FOR ABDOMINAL SPASM TAKING CALCIUM 600 + D 600-400 MG-UNIT TABLET 1 TABLET ORALLY BID TAKING VITAMIN D (CHOLECALCIFEROL) 5000 TABLET 1 TAB ORALLY ONCE A DAY TAKING MULTIVITAMINS OTC TABLET 1 TABLET ORALLY ONCE A DAY TAKING HYDROXYZINE HCL 50 MG TABLET 2 TABLET ORALLY AT BEDTIME TAKING ZOLOFT 100 MG TABLET 2 TABLETS ORALLY ONCE A DAY TAKING MORPHINE SULFATE 30 MG TABLET 1 TABLET NEEDED ORALLY EVERY 4 HRS PRN PAIN MDD=6 TAKING KLONOPIN 1 MG TABLET 2 TABLETS ORALLY AT BEDTIME OR ONE ADDITIONAL WHEN NEEDED MEDICATION LIST REVIEWED AND RECONCILED WITH THE PATIENT PAST MEDICAL HISTORY NEURODERMATITIS-AGREED UPON BY KEON AND DR. JACQUELINE CASTRO AT [facility] DEPRESSION/ANXIETY SYNDROME CERVICAL/LUMBAR DJD BORDERLINE PROLONGED QTC SYNDROME/HISTORY OF SYNCOPE NOT CORRELATED TO CARDIAC ARRHYTHMIA IMPAIRED FASTING GLUCOSE INSOMNIA/RESTLESS LEG SYNDROME GERD/DYSPEPSIA DYSMENORRHEA IBS CONSTIPATION TYPE MITRAL VALVE PROLAPSE/TRACE MR BY TTE NOVEMBER 2010-SOCO IRON-DEFICIENCY ANEMIA MUCOSAL PROLAPSE SYNDROME STATUS POST TEMS PROCEDURE-11/2011 COLONOSCOPY WITH RECTAL MUCOSAL INFLAMMATION AND SMALL AREA OF MID RECTAL DENUDED MUCOSA TYPICAL OF MUCOSAL PROLAPSE OTHERWISE NORMAL-LORENZO /08/10/14 P FAILED REPEAT TEMS, GIVEN DX OF SOLITARY RECTAL ULCERATIVE SYNDROME ULCERATIVE COLITIS ALLERGIES NSAIDS: RINGING OF EARS: SIDE EFFECTS FISH OIL (CERTAIN BRANDS ONLY): SWELLING: SIDE EFFECTS SULFA: RASH,DIARRHEA: ALLERGY REVIEW OF SYSTEMS REVIEWED BY: PROVIDER: ROCÍO ROSENTHAL . CONSTITUTIONAL: ANY CHANGE IN YOUR MEDICAL CONDITION? NO . CHILLS NO . FEVER NO . INFECTION: DO YOU HAVE NEW INFECTIONS? NO . DO YOU HAVE HISTORY OF MRSA? NO . MUSCULOSKELETAL: ANY NEW PATTERNS OF PAIN OR NUMBNESS? YES, ALL THE WAY UP BOTH ARMS TO SHOULDER. STARTED OFF WITH LEFT HAND AND THEN CREEPED UP THE ARM AND INTO SHOULDER . GASTROENTEROLOGY: ANY NEW CHANGE IN BOWEL CONTROL? NO . GENITOURINARY: ANY NEW CHANGE IN BLADDER CONTROL? NO . IS THERE A CHANCE YOU COULD BE ? NO . HEMATOLOGY/LYMPH: DO YOU TAKE ANY BLOOD THINNERS? (FOR EXAMPLE- COUMADIN, PLAVIX, AGGRENOX, PLATEL, PRADAXA, OR XARELTO) NO . WHEN WAS YOUR LAST DOSE? DATE: TIME: . NEUROLOGY: HAVE YOU FALLEN IN THE PAST 6 MONTHS? NO . ANY NEW EXTREMITY NUMBNESS OR WEAKNESS? NO . CARDIOLOGY: DO YOU HAVE A PACEMAKER OR DEFIBRILLATOR? NO . RESPIRATORY: HAVE YOU BEEN SICK IN THE PAST WEEK? SORE THROAT LAST WEEK . FEVER NO . FLU LIKE SYMPTOMS? NO . COUGH NO . INTEGUMENTARY: DO YOU HAVE ANY RASHES OR OPEN SORES? NO . ALLERGIC/IMMUNO: ARE YOU ALLERGIC TO SHELLFISH OR IV DYE? NO . ANY NEW ALLERGIES? NO . PSYCHIATRIC: DO YOU HAVE THOUGHTS OF HURTING YOURSELF OR SOMEONE ELSE? NO . ARE YOU ABUSED, NEGLECTED, OR IN AN UNSAFE ENVIRONMENT? NO . ENDOCRINOLOGY: ARE YOU DIABETIC? NO . OTHER: DO YOU NEED ANY PRESCRIPTIONS? NO . IF YES, PLEASE LIST: ____ . ANY NEW PROBLEMS WITH YOUR MEDICATIONS? NO . WHEN DID YOU LAST EAT? ____ . WHEN DID YOU LAST DRINK? ____ . WHAT DID YOU LAST DRINK? ____ . NAME OF PERSON DRIVING YOU HOME? ____ . DO YOU HAVE ANY OTHER QUESTIONS OR CONCERNS NO . VITAL SIGNS WT 180 LBS, HT 65 IN, BMI 29.95 INDEX, BP 149/77 MM HG, HR 65 /MIN, RR 18 /MIN, TEMP 98.7 F, OXYGEN SAT % 98, REVIEWED BY: NL. EXAMINATION GENERAL EXAMINATION: PSYCHALERT , ORIENTED X 3 , APPROPRIATE MOOD AND AFFECT , HAS SOME TROBLE STAYING ON [employer]. LUNGS:CLEAR TO AUSCULTATION BILATERALLY. HEART:HEART RATE REGULAR, BRADUCARDIC. . MUSCULOSKELETAL:TENDER ACROSS LUMBAR PARAVERTEBRAL MUSCLES. SPECIFIC TENDERNESS OVER LEFT SIJ. RISES EASILY TO STANDING POSITION. POSTURE UPRIGHT. GAIT WIDEBASED NONANTALGIC. EXTREMITIES:MULTIPLE OPEN LESIONS BILATERAL UPPER EXTREMITIES. ASSESSMENTS RECTAL PAIN, CHRONIC - K62.89 (PRIMARY) CHRONIC PRESCRIPTION OPIATE USE - Z79.899 LUMBAR DISC DISEASE WITH RADICULOPATHY - M51.16 TREATMENT RECTAL PAIN, CHRONIC LAB: COMPREHENSIVE METABOLIC PROFILE GLUCOSE 116 (70-105 - MG/DL) BUN 11 (7-18 - MG/DL) CREATININE 0.88 (0.55-1.02 - MG/DL) GLOMERULAR FILTRATION RATE > 60.0 (>51 - ) SODIUM 142 (136-145 - MEQ/L) POTASSIUM 4.3 (3.5-5.1 - MEQ/L) CHLORIDE 109 (98-107 - MEQ/L) CARBON DIOXIDE 26 (21-32 - MEQ/L) CALCIUM 9.0 (8.5-10.1 - MG/DL) AST/SGOT 14 (15-37 - U/L) ALT/SGPT 25 (12-78 - U/L) ALK PHOS 107 (45-117 - U/L) BILIRUBIN,TOTAL 0.4 (0.2-1.0 - MG/DL) TOTAL PROTEIN 7.1 (6.4-8.2 - GM/DL) ALBUMIN 3.9 (3.2-5.2 - GM/DL) ALB/GLOB RATIO 1.22 (1.00-1.93 - ) LAB: ERYTHROCYTE SEDIMENTATION RATE SED RATE 6 (0-30 - MM/HR) LAB: CBC WITH DIFFERENTIAL WBC 7.9 (4.0-10.0 - K/MM3) RBC 4.67 (4.00-5.40 - M/MM3) HEMOGLOBIN 13.8 (12.0-16.0 - G/DL) HEMATOCRIT 41.1 (36.0-47.0 - %) MCV 87.9 (80.0-96.0 - FL) MCH 29.6 (27.0-33.0 - PG) MCHC 33.7 (32.0-36.5 - G/DL) RDW 14.9 (11.5-14.5 - %) PLATELET COUNT 282 (150-450 - K/MM3) LYMPH % 12.4 (24.0-44.0 - %) MONO % 4.4 (0.0-5.0 - %) NEUT % 81.7 (36.0-66.0 - %) EOS % 0.3 (0.0-3.0 - %) BASO % 0.6 (0.0-1.0 - %) NEUT # 6.5 (1.8-7.7 - K/MM3) LYMPH # 1.0 (1.5-4.5 - K/MM3) MONO # 0.4 (0.0-0.8 - K/MM3) EOS # 0.0 (0.0-0.50 - K/MM3) BASO # 0.0 (0.0-0.2 - K/MM3) LAB: TOTAL IRON BINDING CAPACIT IRON 109 (50-170 - UG/DL) TIBC IRON BINDING CAPACITY 324 (250-450 - UG/DL) % SATURATION 33.6 (13.2-45.0 - %) LAB: PT & APTT PROTIME 12.8 (12.4-14.5 - SECONDS) INR 0.95 ( - ) APTT 25.9 (26.8-37.9 - SECONDS) LAB: THYROID PROFILE T UPTAKE 36 (30-39 - %) THYROXINE (T4) 7.8 (4.5-12.0 - UG/DL) FTI 2.8 (1.3-4.8 - %) TSH ULTRASENSITIVE 0.856 (0.358-3.740 - UIU/ML) LAB: C REACTIVE PROTEIN QUANTITATIV (AT [facility]) C-REACTIVE PROT QNT < 0.30 (0.00-0.30 - MG/DL) LAB: FERRITIN FERRITIN 43 (8-252 - NG/ML) CLINICAL NOTES: ISTOP REGISTRY REVIEWED AND DEMNOSTRATES COMPLLIANCE. BRINGS IN MEDICATIONS WHICH IS APPROPRIATE FOR WHAT WAS DISPENSED. RECENT URINE TOXICOLOGY REVIEWED. NO UNAUTHORIZED MEDICATIONS. NO ILLICIT SUBSTANCES AND PRESCRIBED MEDICATIONS WERE PRESENT. . CONSIDER CERVICAL IMAGING AT NEXT VISIT. PROCEDURE CODES FA211 ESTABILISHED PATIENT [facility] FACILITY CHARGE DISPOSITION & COMMUNICATION FOLLOW UP 2 MONTHS (REASON: BACK PAIN) ELECTRONICALLY SIGNED BY ARNOLD OWEN ON 05/28/2017 AT 06:15 PM EDT DISCLAIMER : THIS IS A VISIT SUMMARY EXTRACTED FROM THE [employer] CHART. IT IS NOT A COPY OF THE [employer] PROGRESS NOTE. KENNETH
== END ==
LOC: M PAIN 14:30
PROVIDERS: ATTEND Nurse Practitioner Family
DX: K62.89 Other specified diseases of anus and rectum (principal); Z79.891 Long term (current) use of opiate analgesic; Z79.899 Other long term (current) drug therapy; M51.16 Intervertebral disc disorders with radiculopathy, lumbar region; F32.9 Major depressive disorder, single episode, unspecified; K58.9 Irritable bowel syndrome, unspecified; E55.9 Vitamin D deficiency, unspecified; Z88.2 Allergy status to sulfonamides; Z88.8 Allergy status to other drugs, medicaments and biological substances; Z91.013 Allergy to seafood

== ENCOUNTER → 2017-05-10 | Outpatient (CLI) | payer OTHER, MEDICARE ==
[2017-05-10 20:35] LABS: BASO % 0.6 % (0.0-1.0); EOS % 0.3 % (0.0-3.0); LARGE UNSTAINED CELL % 0.5 % (0.0-4.0); LYMPH % 12.4 % (24.0-44.0); MEAN CORPUSCULAR HEMOGLOBIN 29.6 pg (27.0-33.0); MEAN CORPUSCULAR HGB CONC 33.7 g/dl (32.0-36.5); MEAN CORPUSCULAR VOLUME 87.9 fl (80.0-96.0); MONO # 0.4 K/mm3 (0.0-0.8); MONO % 4.4 % (0.0-5.0); NEUTROPHILS # 6.5 K/mm3 (1.8-7.7); NEUTROPHILS % 81.7 % (36.0-66.0); PLATELET COUNT, AUTOMATED 282 k/mm3 (150-450); RED CELL DISTRIBUTION WIDTH 14.9 % (11.5-14.5); WHITE BLOOD COUNT 7.9 K/mm3 (4.0-10.0)
[2017-05-10 20:39] LABS: INR 0.95
[2017-05-10 20:48] LABS: ALBUMIN 3.9 GM/DL (3.2-5.2); ALBUMIN/GLOBULIN RATIO 1.22 (1.00-1.93); ALKALINE PHOSPHATASE 107 U/L (45-117); ALT/SGPT 25 U/L (12-78); ANION GAP 7 MEQ/L (8-16); AST/SGOT 14 U/L (15-37); BILIRUBIN,TOTAL 0.4 MG/DL (0.2-1.0); BLOOD UREA NITROGEN 11 MG/DL (7-18); CARBON DIOXIDE LEVEL 26 MEQ/L (21-32); CHLORIDE LEVEL 109 MEQ/L (98-107); CREATININE FOR GFR 0.88 MG/DL (0.55-1.02); FERRITIN 43 NG/ML (8-252); GLOMERULAR FILTRATION RATE > 60.0 (>51); GLUCOSE, FASTING 116 MG/DL (70-105); PERCENT SATURATION 33.6 % (13.2-45.0); POTASSIUM SERUM 4.3 MEQ/L (3.5-5.1); SODIUM LEVEL 142 MEQ/L (136-145); T UPTAKE 36 % (30-39); THYROXINE (T4) 7.8 UG/DL (4.5-12.0); TOTAL IRON BINDING CAPACITY 324 UG/DL (250-450); TOTAL PROTEIN 7.1 GM/DL (6.4-8.2)
[2017-05-10 21:15] LABS: ERYTHROCYTE SEDIMENTATION RATE 6 mm/hr (0-30)
== END ==
LOC: M LAB 16:13
PROVIDERS: ATTEND Nurse Practitioner Family
DX: K62.89 Other specified diseases of anus and rectum (principal)

== ENCOUNTER → 2017-09-19 | Outpatient (CLI) | payer OTHER, MEDICARE | LOC: M PAIN 11:15 | DX: K62.89 Other specified diseases of anus and rectum (principal); M51.16 Intervertebral disc disorders with radiculopathy, lumbar region; L20.81 Atopic neurodermatitis; R73.01 Impaired fasting glucose; K21.0 Gastro-esophageal reflux disease with esophagitis; Z79.899 Other long term (current) drug therapy; Z88.6 Allergy status to analgesic agent; Z88.2 Allergy status to sulfonamides; Z91.09 Other allergy status, other than to drugs and biological substances; Z86.79 Personal history of other diseases of the circulatory system; Z87.891 Personal history of nicotine dependence | CPT/HCPCS: G0463 ==

== ENCOUNTER → 2017-11-26 | Outpatient (CLI) | payer OTHER, MEDICARE | LOC: M PAIN 14:15 | DX: K62.89 Other specified diseases of anus and rectum (principal); M51.16 Intervertebral disc disorders with radiculopathy, lumbar region; K21.9 Gastro-esophageal reflux disease without esophagitis; R73.01 Impaired fasting glucose; G47.00 Insomnia, unspecified; G25.81 Restless legs syndrome; R94.31 Abnormal electrocardiogram [ECG] [EKG]; D50.9 Iron deficiency anemia, unspecified; Z79.899 Other long term (current) drug therapy; Z88.6 Allergy status to analgesic agent; Z88.2 Allergy status to sulfonamides; Z88.8 Allergy status to other drugs, medicaments and biological substances; Z87.891 Personal history of nicotine dependence | CPT/HCPCS: G0463 ==

== ENCOUNTER → 2017-11-27 | Outpatient (CLI) | payer OTHER, MEDICARE ==
[2017-11-27 19:04] LABS: BASO % 0.5 % (0.0-1.0); EOS # 0.1 10^3/uL (0.0-0.50); EOS % 1.1 % (0.0-3.0); HEMATOCRIT 41.8 % (36.0-47.0); HEMOGLOBIN 13.9 g/dl (12.0-16.0); IMMATURE GRANULOCYTE % 0.2 % (0-3.0); LYMPH % 15.5 % (24.0-44.0); MEAN CORPUSCULAR HEMOGLOBIN 28.4 pg (27.0-33.0); MEAN CORPUSCULAR HGB CONC 33.3 g/dl (32.0-36.5); MEAN CORPUSCULAR VOLUME 85.5 fl (80.0-96.0); MONO # 0.4 10^3/uL (0.0-0.8); NEUTROPHILS # 4.8 10^3/uL (1.8-7.7); NEUTROPHILS % 75.7 % (36.0-66.0); PLATELET COUNT, AUTOMATED 206 10^3/uL (150-450); RED BLOOD COUNT 4.89 10^6/uL (4.00-5.40); RED CELL DISTRIBUTION WIDTH 13.2 % (11.5-14.5); WHITE BLOOD COUNT 6.3 10^3/uL (4.0-10.0)
[2017-11-27 20:05] LABS: ESTIMATED AVERAGE GLUCOSE 100 MG/DL (60-110); HEMOGLOBIN A1c 5.1 %
[2017-11-27 20:15] LABS: ALBUMIN/GLOBULIN RATIO 1.54 (1.00-1.93); ALKALINE PHOSPHATASE 133 U/L (45-117); ALT/SGPT 26 U/L (12-78); ANION GAP 5 MEQ/L (8-16); AST/SGOT 16 U/L (7-37); BILIRUBIN,TOTAL 0.4 MG/DL (0.2-1.0); BLOOD UREA NITROGEN 12 MG/DL (7-18); CALCIUM LEVEL 8.7 MG/DL (8.5-10.1); CARBON DIOXIDE LEVEL 27 MEQ/L (21-32); CHLORIDE LEVEL 107 MEQ/L (98-107); CREATININE FOR GFR 0.76 MG/DL (0.55-1.30); FERRITIN 55 NG/ML (8-252); GLOMERULAR FILTRATION RATE > 60.0 (>51); GLUCOSE, FASTING 89 MG/DL (70-100); IRON (FE) 76 UG/DL (50-170); MAGNESIUM LEVEL 2.4 MG/DL (1.8-2.4); PERCENT SATURATION 26.1 % (13.2-45.0); POTASSIUM SERUM 4.2 MEQ/L (3.5-5.1); SODIUM LEVEL 139 MEQ/L (136-145); TOTAL IRON BINDING CAPACITY 291 UG/DL (250-450); TOTAL PROTEIN 6.6 GM/DL (6.4-8.2)
== END ==
LOC: M LAB 17:55
DX: D50.9 Iron deficiency anemia, unspecified (principal); R94.31 Abnormal electrocardiogram [ECG] [EKG]; Z68.30 Body mass index [BMI] 30.0-30.9, adult
CPT/HCPCS: 83550

== ENCOUNTER → 2018-03-19 | Outpatient (CLI) | payer OTHER, MEDICARE | LOC: M PAIN 14:45 | DX: K62.89 Other specified diseases of anus and rectum (principal); M51.16 Intervertebral disc disorders with radiculopathy, lumbar region; R73.01 Impaired fasting glucose; F41.1 Generalized anxiety disorder; G47.00 Insomnia, unspecified; G25.81 Restless legs syndrome; Z79.899 Other long term (current) drug therapy; Z88.6 Allergy status to analgesic agent; Z88.2 Allergy status to sulfonamides; Z88.8 Allergy status to other drugs, medicaments and biological substances; Z86.79 Personal history of other diseases of the circulatory system; Z87.891 Personal history of nicotine dependence | CPT/HCPCS: G0463 ==

== ENCOUNTER → 2018-04-29 | Outpatient (CLI) | payer OTHER | LOC: M PAIN 13:00 | DX: M79.1 Myalgia (principal); K62.89 Other specified diseases of anus and rectum; M51.16 Intervertebral disc disorders with radiculopathy, lumbar region; R73.01 Impaired fasting glucose; G47.00 Insomnia, unspecified; G25.81 Restless legs syndrome; K20.9 Esophagitis, unspecified; D50.9 Iron deficiency anemia, unspecified; Z79.899 Other long term (current) drug therapy; Z88.6 Allergy status to analgesic agent; Z88.8 Allergy status to other drugs, medicaments and biological substances; Z91.018 Allergy to other foods; Z86.79 Personal history of other diseases of the circulatory system; Z87.891 Personal history of nicotine dependence | CPT/HCPCS: G0463 ==

== ENCOUNTER → 2018-04-29 | Outpatient (CLI) | payer OTHER ==
[2018-04-29 16:39] LABS: BASO % 0.6 % (0.0-1.0); EOS # 0.1 10^3/uL (0.0-0.50); EOS % 1.7 % (0.0-3.0); HEMATOCRIT 41.3 % (36.0-47.0); HEMOGLOBIN 13.7 g/dl (12.0-15.5); IMMATURE GRANULOCYTE % 0.3 % (0-3.0); LYMPH # 1.6 10^3/uL (1.5-4.5); LYMPH % 25.5 % (24.0-44.0); MEAN CORPUSCULAR HEMOGLOBIN 28.7 pg (27.0-33.0); MEAN CORPUSCULAR HGB CONC 33.2 g/dl (32.0-36.5); MEAN CORPUSCULAR VOLUME 86.6 fl (80.0-96.0); MONO # 0.6 10^3/uL (0.0-0.8); MONO % 8.9 % (0.0-5.0); PLATELET COUNT, AUTOMATED 219 10^3/uL (150-450); RED BLOOD COUNT 4.77 10^6/uL (4.00-5.40); RETIC HEMOGLOBIN EQUIVALENT 33.9 pg (24-36); RETICULOCYTE # 65.3 10^9/L (17-77); RETICULOCYTE % 1.4 % (0.5-1.5); WHITE BLOOD COUNT 6.4 10^3/uL (4.0-10.0)
[2018-04-29 17:03] LABS: ALBUMIN/GLOBULIN RATIO 1.38 (1.00-1.93); ALKALINE PHOSPHATASE 122 U/L (45-117); ALT/SGPT 29 U/L (12-78); ANION GAP 9 MEQ/L (8-16); AST/SGOT 18 U/L (7-37); BILIRUBIN,TOTAL 0.5 MG/DL (0.2-1.0); BLOOD UREA NITROGEN 16 MG/DL (7-18); CALCIUM LEVEL 9.1 MG/DL (8.5-10.1); CARBON DIOXIDE LEVEL 28 MEQ/L (21-32); CHLORIDE LEVEL 104 MEQ/L (98-107); CHOLESTEROL LEVEL 224 MG/DL (<200); CHOLESTEROL RISK RATIO 3.796 (<5); CREATININE FOR GFR 0.86 MG/DL (0.55-1.30); FERRITIN 107 NG/ML (8-252); GLOMERULAR FILTRATION RATE > 60.0 (>51); GLUCOSE, FASTING 75 MG/DL (70-100); HDL CHOLESTEROL 59 MG/DL (>40); IRON (FE) 80 UG/DL (50-170); LDL CHOLESTEROL 137.2 MG/DL (<100); MAGNESIUM LEVEL 2.4 MG/DL (1.8-2.4); NON-HDL-C 165 MG/DL; PERCENT SATURATION 28.8 % (13.2-45.0); SODIUM LEVEL 141 MEQ/L (136-145); TOTAL IRON BINDING CAPACITY 278 UG/DL (250-450); TOTAL PROTEIN 6.9 GM/DL (6.4-8.2); TRIGLYCERIDES LEVEL 139 MG/DL (<150)
[2018-04-29 17:07] LABS: TOTAL 25(OH) VITAMIN D 22.2 NG/ML (30.0-100.0)
== END ==
LOC: M LAB 14:45
DX: D50.9 Iron deficiency anemia, unspecified (principal); R94.31 Abnormal electrocardiogram [ECG] [EKG]; E78.5 Hyperlipidemia, unspecified; E55.9 Vitamin D deficiency, unspecified
CPT/HCPCS: 83550

== ENCOUNTER → 2018-09-26 | Outpatient (CLI) | payer OTHER ==
--- NOTE | 2018-10-11 01:49 | ECWPNPC ---
PATIENT NAME: ALESSANDRA LYNN : 1965 GENDER: FEMALE VISIT DATE: 09/26/2018 DISCHARGE DATE: 09/26/18 1239 VISIT LOCKED DATE TIME: PHYSICIAN: SHAKIR DAVILA PHYSICIAN PAGER NO: [phone] RESOURCE: SHAKIR DAVILA REASON FOR APPOINTMENT 1. BACK HISTORY OF PRESENT ILLNESS HISTORY OF PRESENT ILLNESS: HERE FOR F/U OF CHRONIC GENERALIZED BODY PAIN.RATING PAIN VAS 3-8/10VAS.PAIN IS DESCRIBED CONSTANT,ACHING AND TENDER.SUFFERS FROM CHRONIC ANAL PAIN.SUFFERS FROM SOLITARY RECTAL ULCERATIVE SYNDROME.FOLLOWS WITH DR BRYANT FOR PRIMARY CARE.USES VISCOUS LIDOCAINE TO RECTAL AREA FOR RECTAL PAIN. PAIN THE PATIENT DESCRIBES THE PAIN... FALL RISK SCREENING: SCREENING :NO FALLS IN THE PAST YEAR CURRENT MEDICATIONS TAKING SILVADENE 1 % CREAM 1 APPLICATION TO AFFECTED AREA EXTERNALLY ONCE A DAY TAKING PROTONIX 40 MG TABLET DELAYED RELEASE 1 TABLET ORALLY ONCE A DAY TAKING VITAMIN D (CHOLECALCIFEROL) 5000 TABLET 1 TAB ORALLY ONCE A DAY TAKING CALCIUM 600 + D 600-400 MG-UNIT TABLET 1 TABLET ORALLY BID TAKING MULTIVITAMINS OTC TABLET 1 TABLET ORALLY ONCE A DAY TAKING MILK THISTLE 1 CAPSULE 1 CAP(S) ORALLY BID TAKING MUPIROCIN 2 % OINTMENT 1 APPLICATION TO EFFECTED AREA ON ARM, SMALL AMOUNT EXTERNALLY THREE TIMES A DAY ALFONSO (ORDER FROM [employer]) TAKING CAMPHOR-MENTHOL _ OINTMENT APPLY TOPICALLY EXTERNALLY TWICE A DAY X 7 DAYS WITH FLARES C CLOBETASOL 0.05% OINTMENT TAKING VITAMIN B COMPLEX OTC TABLET 1 TABLET ORALLY ONCE A DAY TAKING FISH OIL 1000 MG CAPSULE 1 CAPSULE BY MOUTH ONCE A DAY TAKING FERROUS GLUCONATE 325 (36 FE) MG TABLET 1 TABLET ORALLY ONCE A DAY TAKING DICYCLOMINE HCL 10 MG CAPSULE 1 CAPSULES ORALLY THREE TIMES A DAY NEEDED FOR ABDOMINAL SPASM TAKING MIRALAX POWDER POWDER 17 GM ORALLY ONCE A DAY TAKING METAMUCIL 28.3 % POWDER DIRECTED ORALLY BEDTIME TAKING LIDOCAINE VISCOUS 2 % SOLUTION 15 ML TO AFFECTED AREA NEEDED MOUTH/THROAT EVERY 3 HRS TO WOUND AREAS FOR PAIN TAKING MUPIROCIN 2 % OINTMENT APPLY A SMALL AMOUNT TO AFFECTED AREA ON ARM THREE TIMES DAILY TOPICALLY THREE TIMES DAILY TAKING NARCAN 4 MG/0.1ML LIQUID DIRECTED NASALLY USE PRN RESPIRATORY SUPPRESSION OR OVERDOSE AND CALL 911 TAKING ZOLOFT 100 MG TABLET 2 TABLETS ORALLY ONCE A DAY TAKING AMITIZA 8 MCG CAPSULE 1 TAB ORALLY BID PRN TAKING HYDROXYZINE HCL 50 MG TABLET 2 TABLET ORALLY AT BEDTIME TAKING MORPHINE SULFATE 30 MG TABLET 1 TABLET NEEDED ORALLY EVERY 4 HRS PRN PAIN MDD=6 TAKING KLONOPIN 1 MG TABLET 1 TABLET ORALLY THREE TIMES A DAY NEEDED MDD3 NOT-TAKING CARAFATE 1 GM TABLET 1 TABLET ON AN EMPTY STOMACH BEFORE MEALS ORALLY FOUR TIMES DAILY NEEDED NOT-TAKING PROBIOTIC - TABLET DELAYED RELEASE ORALLY NOT-TAKING MACROBID 100 MG CAPSULE 1 CAPSULE WITH FOOD ORALLY EVERY 12 HRS DISCONTINUED SERTRALINE HCL 100 MG TABLET 2 TABLETS ORALLY ONCE A DAY DISCONTINUED PANTOPRAZOLE SODIUM 40 MG TABLET DELAYED RELEASE 1 TABLET ORALLY EVERY MORNING MEDICATION LIST REVIEWED AND RECONCILED WITH THE PATIENT PAST MEDICAL HISTORY NEURODERMATITIS-AGREED UPON BY KEON AND DR. JACQUELINE CASTRO AT [facility] MDD, RECURRENT/CHETNA CERVICAL/LUMBAR DJD BORDERLINE PROLONGED QTC SYNDROME/HISTORY OF SYNCOPE NOT CORRELATED TO CARDIAC ARRHYTHMIA IMPAIRED FASTING GLUCOSE INSOMNIA/RESTLESS LEG SYNDROME GERD/DYSPEPSIA DYSMENORRHEA IBS CONSTIPATION TYPE MITRAL VALVE PROLAPSE/TRACE MR BY TTE NOVEMBER 2010-SOCO IRON-DEFICIENCY ANEMIA MUCOSAL PROLAPSE SYNDROME STATUS POST TEMS PROCEDURE LA GRADE B ESOPHAGITIS AND DENTATE LINE ACUTE GENERALIZED URTICARIA S ANGIODEMA-? HONEY DUARTE EXPOSURE02/2018 ALLERGIES NSAIDS: RINGING OF EARS: SIDE EFFECTS FISH OIL (CERTAIN BRANDS ONLY): SWELLING: SIDE EFFECTS SULFA: RASH,DIARRHEA: ALLERGY HONEY MANGOS: SWELLING, RASH, ITCH SURGICAL HISTORY TEMS-LORENZO AT [facility] [place] 07/2011 FELL DOING LAUNDRY, BROKE L FEMUR WITH [employer]IF 2000 FAMILY HISTORY FATHER: ALIVE DADS SIDE OF THE FAMILY-HEART ISSUES. SOCIAL HISTORY GENERAL: TOBACCO USE ARE YOU A:FORMER SMOKER HOW LONG HAS IT BEEN SINCE YOU LAST SMOKED?> 10 YEARS ALCOHOL SCREENING DID YOU HAVE A DRINK CONTAINING ALCOHOL IN THE PAST YEAR?YES HOW OFTEN DID YOU HAVE A DRINK CONTAINING ALCOHOL IN THE PAST YEAR?FOUR OR MORE TIMES A WEEK (4 POINTS) HOW MANY DRINKS DID YOU HAVE ON A TYPICAL DAY WHEN YOU WERE DRINKING IN THE PAST YEAR?1 OR 2 (0 POINTS) HOW OFTEN DID YOU HAVE SIX OR MORE DRINKS ON ONE OCCASION IN THE PAST YEAR?NEVER (0 POINTS) POINTS4 INTERPRETATIONPOSITIVE CAFFEINE CAFFEINE USE?YES HOW OFTEN AND HOW MUCH? ONE CUP OF COFFE IN THE MORNING SEXUAL HX HAD SEX IN THE LAST 12 MONTHS (VAGINAL, ORAL, OR ANAL)?YES WITHMEN ONLY USE PROTECTION?NO HAVE YOU EVER HAD AN STD?NO HIV / HEP-C SCREENING HIV TEST OFFERED TO PATIENT:YES DATE OFFERED:05/11/2017 TEST ACCEPTED:NO REASON:OTHER (DOCUMENT IN NOTE) PATIENT ALREADY TESTTED BROCHURE PROVIDED TO PATIENTYES HEP-C TEST OFFERED TO PATIENT:YES DATE OFFERED:05/11/2017 TEST ACCEPTED:NO REASON:OTHER (DOCUMENT IN NOTE) LREADY TESTED HOAHAOISM HOAHAOISM NO CHRISTIANITY BELIEFS THAT WOULD IMPACT HEALTH CARE. LANGUAGE LANGUAGES SPOKEN:[place]EN[place] LEARNING BARRIERS / SPECIAL NEEDS CHANGE FROM LAST VISIT?YES BARRIERS TO LEARNING?NO HEARING IMPAIRED?NO VISION IMPAIRED?YES :CORRECTIVE LENSES READING GLASSES COGNITIVELY IMPAIRED?NO READINESS TO LEARN?YES LEARNING PREFERENCES?NO LEARNING CAPABILITIES PRESENT?YES EMOTIONAL BARRIERS?NO SPECIAL DEVICES?NO OPERATORS SCHOOL MANAGER NEEDED?NO DOMESTIC VIOLENCE DO YOU FEEL SAFE IN YOUR ENVIRONMENT?YES EXERCISE: WALKS. MARITAL STATUS: . PAIN CLINIC PFS, CLERGY, PUBLIC HEALTH REFERRALS PFS REFERRAL NEEDED?NO CLERGY REFERRAL NEEDED?NO PUBLIC HEALTH REFERRAL NEEDED?NO WAS THE PROVIDER NOTIFIED OF ANY PERTINENT INFO?NO HAS THE PATIENT BEEN EDUCATED REGARDING HIS/HER PLAN OF CARE?YES HAS THE PATIENT BEEN EDUCATED REGARDING PAIN, THE RISK FOR PAIN, THE IMPORTANCE OF EFFECTIVE PAIN MANAGEMENT, AND THE PAIN ASSESSMENT PROCESS?YES ADVANCE DIRECTIVE ADVANCE DIRECTIVE DISCUSSED WITH PATIENT:YES DECLINED HOSPITALIZATION/MAJOR DIAGNOSTIC PROCEDURE FELL DOING GERMAINE PA FEMUR WITH ORIF 2000 IRON DEFICIENCY ANEMIA 12/2016 REVIEW OF SYSTEMS REVIEWED BY: PROVIDER: SHAKIR ROSENTHAL . CONSTITUTIONAL: ANY CHANGE IN YOUR MEDICAL CONDITION? NO . CHILLS NO . FEVER NO . INFECTION: DO YOU HAVE NEW INFECTIONS? NO . DO YOU HAVE HISTORY OF MRSA? NO . MUSCULOSKELETAL: ANY NEW PATTERNS OF PAIN OR NUMBNESS? NO . GASTROENTEROLOGY: ANY NEW CHANGE IN BOWEL CONTROL? NO . GENITOURINARY: ANY NEW CHANGE IN BLADDER CONTROL? NO . IS THERE A CHANCE YOU COULD BE ? NO . HEMATOLOGY/LYMPH: DO YOU TAKE ANY BLOOD THINNERS? (FOR EXAMPLE- COUMADIN, PLAVIX, AGGRENOX, PLATEL, PRADAXA, OR XARELTO) NO . WHEN WAS YOUR LAST DOSE? DATE: TIME: . NEUROLOGY: HAVE YOU FALLEN IN THE PAST 12 MONTHS? YES, PT FELL 07/2018 FROM LOSS OF BALANCE AND WEAKNESS, PT DENIES INJURIES . ANY NEW EXTREMITY NUMBNESS OR WEAKNESS? NO . CARDIOLOGY: DO YOU HAVE A PACEMAKER OR DEFIBRILLATOR? NO . RESPIRATORY: HAVE YOU BEEN SICK IN THE PAST WEEK? NO . FEVER NO . FLU LIKE SYMPTOMS? NO . COUGH NO . INTEGUMENTARY: DO YOU HAVE ANY RASHES OR OPEN SORES? YES, LEFT WRIST S/P ALLERGIC REACTION TO HONEY DUARTE . ALLERGIC/IMMUNO: ARE YOU ALLERGIC TO IV DYE? NO . ANY NEW ALLERGIES? NO . PSYCHIATRIC: DO YOU HAVE THOUGHTS OF HURTING YOURSELF OR SOMEONE ELSE? NO . ARE YOU ABUSED, NEGLECTED, OR IN AN UNSAFE ENVIRONMENT? NO . ENDOCRINOLOGY: ARE YOU DIABETIC? NO . OTHER: DO YOU NEED ANY PRESCRIPTIONS? YES, MORPHINE . IF YES, PLEASE LIST: ____ . ANY NEW PROBLEMS WITH YOUR MEDICATIONS? NO . WHEN DID YOU LAST EAT? ____ . WHEN DID YOU LAST DRINK? ____ . WHAT DID YOU LAST DRINK? ____ . NAME OF PERSON DRIVING YOU HOME? ____ . DO YOU HAVE ANY OTHER QUESTIONS OR CONCERNS NO . VITAL SIGNS WT 186 LBS, HT 65 IN, BMI 30.95 INDEX, BP 143/68 MM HG, HR 51 /MIN, RR 18 /MIN, TEMP 97.4 F, OXYGEN SAT % 100%, NA INITIALS AW 1137, REVIEWED BY: EM. EXAMINATION GENERAL EXAMINATION: GENERAL APPEARANCE:AWAKE,ALERT ,PLEAASANT . PSYCHAFFECT NORMAL . LUNGS:LUNG COLLAZO ARE CLEAR TO AUSCULTATION BILATERALLY. GOOD MOVEMENT OF AIR . HEART:S1, S2 IN A REGULAR RATE AND RHYTHM. NO SIGNIFICANT MURMURS, RUBS OR GALLOPS NOTED . ASSESSMENTS RECTAL PAIN, CHRONIC - K62.89 (PRIMARY) CHRONIC PRESCRIPTION OPIATE USE - Z79.899 TREATMENT RECTAL PAIN, CHRONIC CONTINUE LIDOCAINE VISCOUS SOLUTION, 2 %, 15 ML TO AFFECTED AREA NEEDED, MOUTH/THROAT, EVERY 3 HRS TO WOUND AREAS FOR PAIN CONTINUE NARCAN LIQUID, 4 MG/0.1ML, DIRECTED, NASALLY, USE PRN RESPIRATORY SUPPRESSION OR OVERDOSE AND CALL 911 REFILL MORPHINE SULFATE TABLET, 30 MG, 1 TABLET NEEDED, ORALLY, EVERY 4 HRS PRN PAIN MDD=6, 20 DAYS, 120, REFILLS 0 NOTES: ISTOP REGISTRY REVIEWED AND DEMONSTRATES COMPLLIANCE. (REF #[id number] ) BRINGS IN MEDICATIONS WHICH IS APPROPRIATE FOR WHAT WAS DISPENSED. RECENT URINE TOXICOLOGY REVIEWED. NO UNAUTHORIZED MEDICATIONS. NO ILLICIT SUBSTANCES AND PRESCRIBED MEDICATIONS WERE PRESENT. URINE TOX TODAY, RISKS AND BENEFITS OF NARCOTIC/OPIOD MEDICATIONS WERE REVIEWED WITH PATIENT - THIS INCLUDES BUT IS NOT LIMITED TO RISK OF DEPENDANCE/DEVELOPMENT OF ADDICTION, MOOD DISTURBANCE AND DEPRESSION, OSTEOPOROSIS, HORMONAL AND LABIDAL CHANGES, RESPIRATORY DEPRESSION AND . PATIENT IS ADVISED NOT TO DRIVE OR DRINK ALCOHOL WHILE ON THESE MEDICATIONS, REVIEWED WITH PATIENT THE POTENTIAL RISK OF INCREASED SEDATION, RESPIRATORY SUPPRESSION AND WITH THE COMBINATION OF BENZODIAZAPINE AND OPIOD MEDICATIONS. PATIENT STATES HE UNDERSTANDS THIS RISK AND WISHES TO CONTINUE WITH THERAPY, [facility] NARCOTIC AGREEMENT WAS UPDATED, REVIEWED AND SIGNED TODAY BY THE PATIENT. SEE ATTACHED DOCUMENT FOR FULL DETAILS; SPECIFIC ISSUES WERE REVIEWED: 1) KEEP PAIN MEDS IN THEIR ORIGINAL BOTTLES AND ANY WEEKLY PLANNERS ARE TO BE BROUGHT TO THE PAIN CENTER AT EVERY VISIT. 2) THE PATIENT IS NOT TO INCREASE DOSING OR TIMING OF THEIR PAIN MEDICATION WITHOUT SPECIFIC DIRECTION OF THEIR PAIN CENTERPROVIDER (NOT ER OR OTHER PROVIDERS). 3) ALL PAIN MEDS ARE TO BE KEPT SECURED, IN A LOCKED BOX. 4) NO PAIN MEDS ARE TO BE SHARED WITH ANY OTHER PERSON FOR ANY REASON. 5) NO PAIN MEDS MAY BE TAKEN FROM ANY FRIENDS OR RELATIVES FOR ANY REASON 6) NO MEDS OR SUBSTANCES WHICH ARE NOT LEGAL ARE TO BE USED- NO MARIJUANA, NO COCAINE, AMPHETAMINES, HEROIN, OR OTHERS ARE EVER TO BE USED. 7)URINE TESTING IS DONE TO ACCOUNT FOR MEDS AND SUBSTANCES BEING TAKEN AND WILL BE DONE RANDOMLY. PROCEDURE CODES FA211 ESTABILISHED PATIENT [facility] CHARGE DISPOSITION & COMMUNICATION FOLLOW UP 3 MONTHS ELECTRONICALLY SIGNED BY ARIADNA HEREDIA ON 10/10/2018 AT 03:05 PM EST DISCLAIMER : THIS IS A VISIT SUMMARY EXTRACTED FROM THE [employer] CHART. IT IS NOT A COPY OF THE [employer] PROGRESS NOTE. KENNETH
== END ==
LOC: M PAIN 11:15
PROVIDERS: ATTEND Nurse Practitioner Family
DX: K62.89 Other specified diseases of anus and rectum (principal); G89.29 Other chronic pain; G47.00 Insomnia, unspecified; G25.81 Restless legs syndrome; D50.9 Iron deficiency anemia, unspecified; L28.0 Lichen simplex chronicus; Z79.899 Other long term (current) drug therapy; Z88.2 Allergy status to sulfonamides; Z88.6 Allergy status to analgesic agent; Z88.8 Allergy status to other drugs, medicaments and biological substances; Z91.018 Allergy to other foods; Z87.891 Personal history of nicotine dependence

== ENCOUNTER → 2018-09-26 | Outpatient (CLI) | payer OTHER ==
[2018-09-26 13:49] LABS: BASO % 0.3 % (0.0-1.0); EOS # 0.1 10^3/uL (0.0-0.50); EOS % 1.6 % (0.0-3.0); HEMATOCRIT 41.9 % (36.0-47.0); HEMOGLOBIN 14.2 g/dl (12.0-15.5); LYMPH # 1.2 10^3/uL (1.5-4.5); LYMPH % 16.5 % (24.0-44.0); MEAN CORPUSCULAR HEMOGLOBIN 28.9 pg (27.0-33.0); MEAN CORPUSCULAR HGB CONC 33.9 g/dl (32.0-36.5); MEAN CORPUSCULAR VOLUME 85.3 fl (80.0-96.0); MONO # 0.4 10^3/uL (0.0-0.8); MONO % 6.2 % (0.0-5.0); NEUTROPHILS # 5.3 10^3/uL (1.8-7.7); NEUTROPHILS % 75.1 % (36.0-66.0); PLATELET COUNT, AUTOMATED 212 10^3/uL (150-450); RED BLOOD COUNT 4.91 10^6/uL (4.00-5.40); WHITE BLOOD COUNT 7.1 10^3/uL (4.0-10.0)
[2018-09-26 14:19] LABS: ALBUMIN 4.1 GM/DL (3.2-5.2); ALT/SGPT 29 U/L (12-78); BILIRUBIN,TOTAL 0.2 MG/DL (0.2-1.0); BLOOD UREA NITROGEN 16 MG/DL (7-18); C REACTIVE PROTEIN QUANTITATIV 0.42 MG/DL (0.00-0.30); CALCIUM LEVEL 9.1 MG/DL (8.5-10.1); CARBON DIOXIDE LEVEL 28 MEQ/L (21-32); CHLORIDE LEVEL 104 MEQ/L (98-107); CHOLESTEROL LEVEL 204 MG/DL (<200); CHOLESTEROL RISK RATIO 3.344 (<5); CREATININE FOR GFR 0.94 MG/DL (0.55-1.30); FREE T4 0.95 NG/DL (0.76-1.46); GLOMERULAR FILTRATION RATE > 60.0 (>51); GLUCOSE, FASTING 91 MG/DL (70-100); HDL CHOLESTEROL 61 MG/DL (>40); LDL CHOLESTEROL 121 MG/DL (<100); MAGNESIUM LEVEL 2.4 MG/DL (1.8-2.4); NON-HDL-C 143 MG/DL; SODIUM LEVEL 138 MEQ/L (136-145); TOTAL PROTEIN 6.7 GM/DL (6.4-8.2); TRIGLYCERIDES LEVEL 111 MG/DL (<150)
== END ==
LOC: M LAB 13:19
PROVIDERS: ATTEND Family Medicine
DX: D50.9 Iron deficiency anemia, unspecified (principal); R94.31 Abnormal electrocardiogram [ECG] [EKG]; E78.5 Hyperlipidemia, unspecified

== ENCOUNTER → 2018-12-20 | Outpatient (CLI) | payer OTHER ==
--- NOTE | 2018-12-20 23:50 | ECWPNPC ---
PATIENT NAME: ALESSANDRA LYNN : 1965 GENDER: FEMALE VISIT DATE: 12/20/2018 DISCHARGE DATE: 12/20/18 1512 VISIT LOCKED DATE TIME: PHYSICIAN: SHAKIR DAVILA PHYSICIAN PAGER NO: [phone] RESOURCE: SHAKIR DAVILA REASON FOR APPOINTMENT 1. BACK HISTORY OF PRESENT ILLNESS HISTORY OF PRESENT ILLNESS: HERE FOR F/U OF CHRONIC LOW BACK AND NECK PAIN.HAS BEEN HAVING AN INCREASE IN MUSCLE SPASM PAIN LATELY IN NECK AND LOW BACK.FINDS CURRENT PAIN MEDICATION HELPFUL AT REDUCING PAIN AND KEEPING HER COMFORTABLE.RATING PAIN VAS 5/10. PAIN THE PATIENT DESCRIBES THE PAIN... FALL RISK SCREENING: SCREENING :NO FALLS REPORTED IN THE LAST YEAR CURRENT MEDICATIONS TAKING PROTONIX 40 MG TABLET DELAYED RELEASE 1 TABLET ORALLY ONCE A DAY TAKING ZOLOFT 100 MG TABLET 2 TABLETS ORALLY ONCE A DAY TAKING VITAMIN D (CHOLECALCIFEROL) 5000 TABLET 1 TAB ORALLY ONCE A DAY TAKING CALCIUM 600 + D 600-400 MG-UNIT TABLET 1 TABLET ORALLY BID TAKING MULTIVITAMINS OTC TABLET 1 TABLET ORALLY ONCE A DAY TAKING MILK THISTLE 1 CAPSULE 1 CAP(S) ORALLY BID TAKING MUPIROCIN 2 % OINTMENT 1 APPLICATION TO EFFECTED AREA ON ARM, SMALL AMOUNT EXTERNALLY THREE TIMES A DAY ALFONSO (ORDER FROM [facility]) TAKING CAMPHOR-MENTHOL _ OINTMENT APPLY TOPICALLY EXTERNALLY TWICE A DAY X 7 DAYS WITH FLARES C CLOBETASOL 0.05% OINTMENT TAKING VITAMIN B COMPLEX OTC TABLET 1 TABLET ORALLY ONCE A DAY TAKING FISH OIL 1000 MG CAPSULE 1 CAPSULE BY MOUTH ONCE A DAY TAKING FERROUS GLUCONATE 325 (36 FE) MG TABLET 1 TABLET ORALLY ONCE A DAY TAKING DICYCLOMINE HCL 10 MG CAPSULE 1 CAPSULES ORALLY THREE TIMES A DAY NEEDED FOR ABDOMINAL SPASM TAKING MIRALAX POWDER POWDER 17 GM ORALLY ONCE A DAY TAKING METAMUCIL 28.3 % POWDER DIRECTED ORALLY BEDTIME TAKING NARCAN 4 MG/0.1ML LIQUID DIRECTED NASALLY USE PRN RESPIRATORY SUPPRESSION OR OVERDOSE AND CALL 911 TAKING SILVADENE 1 % CREAM 1 APPLICATION TO AFFECTED AREA EXTERNALLY ONCE A DAY TAKING MUPIROCIN 2 % OINTMENT APPLY A SMALL AMOUNT TO AFFECTED AREA ON ARM THREE TIMES DAILY TOPICALLY THREE TIMES DAILY TAKING AMITIZA 8 MCG CAPSULE 1 TAB ORALLY BID PRN TAKING LIDOCAINE VISCOUS 2 % SOLUTION 15 ML TO AFFECTED AREA NEEDED MOUTH/THROAT EVERY 3 HRS TO WOUND AREAS FOR PAIN TAKING SERTRALINE HCL 100 MG TABLET 2 TABLETS ORALLY ONCE A DAY TAKING HYDROXYZINE HCL 50 MG TABLET 2 TABLET ORALLY AT BEDTIME TAKING KLONOPIN 1 MG TABLET 1 TABLET ORALLY THREE TIMES A DAY NEEDED MDD3 TAKING MORPHINE SULFATE 30 MG TABLET 1 TABLET NEEDED ORALLY EVERY 4 HRS PRN PAIN MDD=6 NOT-TAKING MUPIROCIN 2 % OINTMENT APPLY A SMALL AMOUNT TO AFFECTED AREA ON ARM THREE TIMES DAILY TOPICALLY THREE TIMES DAILY, NOTES: DUPLICATE NOT-TAKING PANTOPRAZOLE SODIUM 40 MG TABLET DELAYED RELEASE 1 TABLET ORALLY EVERY MORNING, NOTES: DUPLICATE NOT-TAKING PANTOPRAZOLE SODIUM 40 MG TABLET DELAYED RELEASE 1 TABLET ORALLY EVERY MORNING, NOTES: DUPLICATE NOT-TAKING SERTRALINE HCL 100 MG TABLET 2 TABLETS ORALLY ONCE A DAY, NOTES: DUPLICATE NOT-TAKING CARAFATE 1 GM TABLET 1 TABLET ON AN EMPTY STOMACH BEFORE MEALS ORALLY FOUR TIMES DAILY NEEDED NOT-TAKING PROBIOTIC - TABLET DELAYED RELEASE ORALLY NOT-TAKING MACROBID 100 MG CAPSULE 1 CAPSULE WITH FOOD ORALLY EVERY 12 HRS MEDICATION LIST REVIEWED AND RECONCILED WITH THE PATIENT PAST MEDICAL HISTORY NEURODERMATITIS-AGREED UPON BY KEON AND DR. JACQUELINE SIMMONS DERM AT [facility] MDD, RECURRENT/CHETNA CERVICAL/LUMBAR DJD BORDERLINE PROLONGED QTC SYNDROME/HISTORY OF SYNCOPE NOT CORRELATED TO CARDIAC ARRHYTHMIA IMPAIRED FASTING GLUCOSE INSOMNIA/RESTLESS LEG SYNDROME GERD/DYSPEPSIA DYSMENORRHEA IBS CONSTIPATION TYPE MITRAL VALVE PROLAPSE/TRACE MR BY TTE NOVEMBER 2010-[place] [facility]-DEFICIENCY ANEMIA MUCOSAL PROLAPSE SYNDROME STATUS POST TEMS PROCEDURE LA GRADE B ESOPHAGITIS AND DENTATE LINE ACUTE GENERALIZED URTICARIA S ANGIODEMA-? HONEY DUARTE EXPOSURE02/2018 ALLERGIES NSAIDS: RINGING OF EARS - SIDE EFFECTS FISH OIL (CERTAIN BRANDS ONLY): SWELLING - SIDE EFFECTS SULFA: RASH,DIARRHEA - ALLERGY HONEY MANGOS: SWELLING, RASH, ITCH SURGICAL HISTORY [facility] AT [place] 07/2011 FELL DOING LAUNDRY, BROKE L FEMUR WITH ORIF 2000 FAMILY HISTORY FATHER: ALIVE, DIAGNOSED WITH HYPERTENSION MOTHER: ALIVE, HYPERTENSION DADS SIDE OF THE FAMILY-HEART ISSUES. SOCIAL HISTORY GENERAL: TOBACCO USE ARE YOU A:FORMER SMOKER HOW LONG HAS IT BEEN SINCE YOU LAST SMOKED?> 10 YEARS LATEX QUESTIONNAIRE LATEX ALLERGY : HAVE YOU EVER DEVELOPED ANY TYPE OF REACTION AFTER HANDLING LATEX PRODUCTS SUCH RUBBER GLOVES, CONDOMS, DIAPHRAGMS, BALLOONS, SOCKS, OR UNDERWEAR?NO LATEX ALLERGY : HAVE YOU EVER DEVELOPED ANY TYPE OF REACTION DURING OR AFTER DENTAL APPOINTMENT, VAGINAL/RECTAL EXAMINATION, SURGICAL PROCEDURE, OR ANY OTHER EXPOSURE?NO LATEX RISK : HAVE YOU EVER HAD ANY DIFFICULTY BREATHING OR HIVES AFTER EATING OR HANDLING ANY FRUITS, OR VEGETABLES; SUCH KIWI, BANANAS, STONE FRUITS, OR CHESTNUTSNO LATEX RISK : DO YOU HAVE A PREVIOUS PERSONAL HISTORY OF MORE THAN NINE SURGERIES, SPINA BIFIDA, OR REPEATED CATHERTIZATIONS? NO LATEX RISK : ARE YOU FREQUENTLY EXPOSED TO LATEX PRODUCTS IN YOUR OCCUPATION?NO DATE ASKED : 12/20/2018 ALCOHOL SCREENING DID YOU HAVE A DRINK CONTAINING ALCOHOL IN THE PAST YEAR?YES HOW OFTEN DID YOU HAVE A DRINK CONTAINING ALCOHOL IN THE PAST YEAR?FOUR OR MORE TIMES A WEEK (4 POINTS) HOW MANY DRINKS DID YOU HAVE ON A TYPICAL DAY WHEN YOU WERE DRINKING IN THE PAST YEAR?1 OR 2 (0 POINTS) HOW OFTEN DID YOU HAVE SIX OR MORE DRINKS ON ONE OCCASION IN THE PAST YEAR?NEVER (0 POINTS) POINTS4 INTERPRETATIONPOSITIVE RECREATIONAL DRUG USE DRUG USE?NO CAFFEINE CAFFEINE USE?YES HOW OFTEN AND HOW MUCH? ONE CUP OF COFFE IN THE MORNING SEXUAL HX HAD SEX IN THE LAST 12 MONTHS (VAGINAL, ORAL, OR ANAL)?YES WITHMEN ONLY USE PROTECTION?NO HAVE YOU EVER HAD AN STD?NO HIV / HEP-C SCREENING HIV TEST OFFERED TO PATIENT:YES DATE OFFERED:05/11/2017 TEST ACCEPTED:NO REASON:OTHER (DOCUMENT IN NOTE) PATIENT ALREADY TESTTED BROCHURE PROVIDED TO PATIENTYES HEP-C TEST OFFERED TO PATIENT:YES DATE OFFERED:05/11/2017 TEST ACCEPTED:NO REASON:OTHER (DOCUMENT IN NOTE) LREADY TESTED CHRISTIAN CHRISTIAN NO MANDAEISM BELIEFS THAT WOULD IMPACT HEALTH CARE. LANGUAGE LANGUAGES SPOKEN:BELGIAN LEARNING BARRIERS / SPECIAL NEEDS CHANGE FROM LAST VISIT?YES BARRIERS TO LEARNING?NO HEARING IMPAIRED?NO VISION IMPAIRED?YES :CORRECTIVE LENSES READING GLASSES COGNITIVELY IMPAIRED?NO READINESS TO LEARN?YES LEARNING PREFERENCES?NO LEARNING CAPABILITIES PRESENT?YES EMOTIONAL BARRIERS?NO SPECIAL DEVICES?NO LACING STRING CUTTER NEEDED?NO DOMESTIC VIOLENCE DO YOU FEEL SAFE IN YOUR ENVIRONMENT?YES EXERCISE: WALKS. MARITAL STATUS: . PAIN CLINIC PFS, CLERGY, PUBLIC HEALTH REFERRALS PFS REFERRAL NEEDED?NO CLERGY REFERRAL NEEDED?NO PUBLIC HEALTH REFERRAL NEEDED?NO WAS THE PROVIDER NOTIFIED OF ANY PERTINENT INFO?NO HAS THE PATIENT BEEN EDUCATED REGARDING HIS/HER PLAN OF CARE?YES HAS THE PATIENT BEEN EDUCATED REGARDING PAIN, THE RISK FOR PAIN, THE IMPORTANCE OF EFFECTIVE PAIN MANAGEMENT, AND THE PAIN ASSESSMENT PROCESS?YES ADVANCE DIRECTIVE ADVANCE DIRECTIVE DISCUSSED WITH PATIENT:YES HCP - CHELLE LYNN REVIEWED WITH PATIENT 12/20/18 1422 JS. HOSPITALIZATION/MAJOR DIAGNOSTIC PROCEDURE FELL DOING LAUNDRY, BROKE L FEMUR WITH ORIF 2000 IRON DEFICIENCY ANEMIA 12/2016 REVIEW OF SYSTEMS REVIEWED BY: PROVIDER: SHAKIR ROSENTHAL . CONSTITUTIONAL: ANY CHANGE IN YOUR MEDICAL CONDITION? NO . CHILLS NO . FEVER NO . INFECTION: DO YOU HAVE NEW INFECTIONS? NO . DO YOU HAVE HISTORY OF MRSA? NO . MUSCULOSKELETAL: ANY NEW PATTERNS OF PAIN OR NUMBNESS? YES, STATES PAIN/NUMBNESS IN SAME AREAS BUT MORE IRRITATION AND MORE FREQUENT. ALSO STATES NEW, SEVERE MUSCLE SPASMS IN UPPER BACK . GASTROENTEROLOGY: ANY NEW CHANGE IN BOWEL CONTROL? NO . GENITOURINARY: ANY NEW CHANGE IN BLADDER CONTROL? NO . IS THERE A CHANCE YOU COULD BE ? NO . HEMATOLOGY/LYMPH: DO YOU TAKE ANY BLOOD THINNERS? (FOR EXAMPLE- COUMADIN, PLAVIX, AGGRENOX, PLATEL, PRADAXA, OR XARELTO) NO . WHEN WAS YOUR LAST DOSE? DATE: TIME: . NEUROLOGY: HAVE YOU FALLEN IN THE PAST 12 MONTHS? YES, STATES MULTIPLE FALLS WITHIN THE LAST YEAR. STATES NO MAJOR INJURIES OR ED VISITS . ANY NEW EXTREMITY NUMBNESS OR WEAKNESS? NO . CARDIOLOGY: DO YOU HAVE A PACEMAKER OR DEFIBRILLATOR? NO . RESPIRATORY: HAVE YOU BEEN SICK IN THE PAST WEEK? NO . FEVER NO . FLU LIKE SYMPTOMS? NO . COUGH NO . INTEGUMENTARY: DO YOU HAVE ANY RASHES OR OPEN SORES? YES, OPEN SORES TO LEFT WRIST . ALLERGIC/IMMUNO: ARE YOU ALLERGIC TO IV DYE? NO . ANY NEW ALLERGIES? NO . PSYCHIATRIC: DO YOU HAVE THOUGHTS OF HURTING YOURSELF OR SOMEONE ELSE? NO . ARE YOU ABUSED, NEGLECTED, OR IN AN UNSAFE ENVIRONMENT? NO . ENDOCRINOLOGY: ARE YOU DIABETIC? NO . OTHER: DO YOU NEED ANY PRESCRIPTIONS? NO . IF YES, PLEASE LIST: ____ . ANY NEW PROBLEMS WITH YOUR MEDICATIONS? NO . WHEN DID YOU LAST EAT? ____ . WHEN DID YOU LAST DRINK? ____ . WHAT DID YOU LAST DRINK? ____ . NAME OF PERSON DRIVING YOU HOME? ____ . DO YOU HAVE ANY OTHER QUESTIONS OR CONCERNS YES, STATES DR. BRYANT HAD BEEN TREATING HER FOR HEART BURN FOR PAIN SHE WAS EXPERIENCING WITH NO RESPONSE TO TREATMENT. DR. BRYANT THINKS IT WAS LIKELY SEVERE MUSCLE SPASMS FROM BACK WORSENING IN THE THORACIC REGION. ALSO STATES WORSENING PAIN TO LOW BACK . VITAL SIGNS WT 179.0 LBS, HT 65 IN, BMI 29.78 INDEX, BP 128/60 MM HG, HR 52 /MIN, RR 18 /MIN, TEMP 97.1 F, OXYGEN SAT % 97%, SAFE IN ENV? (Y/N) YES, NA INITIALS AW 1408, REVIEWED BY: TERRA. EXAMINATION GENERAL EXAMINATION: GENERAL APPEARANCE:AWAKE,ALERT ,PLEAASANT . PSYCHAFFECT NORMAL . LUNGS:LUNG COLLAZO ARE CLEAR TO AUSCULTATION BILATERALLY. GOOD MOVEMENT OF AIR . HEART:S1, S2 IN A REGULAR RATE AND RHYTHM. NO SIGNIFICANT MURMURS, RUBS OR GALLOPS NOTED . ASSESSMENTS RECTAL PAIN, CHRONIC - K62.89 (PRIMARY) LUMBAR DISC DISEASE WITH RADICULOPATHY - M51.16 CHRONIC PRESCRIPTION OPIATE USE - Z79.899 TREATMENT RECTAL PAIN, CHRONIC REFILL MORPHINE SULFATE TABLET, 30 MG, 1 TABLET NEEDED, ORALLY, EVERY 4 HRS PRN PAIN MDD=6, 30 DAY(S), 180, REFILLS 0 NOTES: ISTOP REGISTRY REVIEWED AND DEMONSTRATES COMPLLIANCE. RECENT URINE TOXICOLOGY REVIEWED. NO UNAUTHORIZED MEDICATIONS. NO ILLICIT SUBSTANCES AND PRESCRIBED MEDICATIONS WERE PRESENT. , RISKS AND BENEFITS OF NARCOTIC/OPIOD MEDICATIONS WERE REVIEWED WITH PATIENT - THIS INCLUDES BUT IS NOT LIMITED TO RISK OF DEPENDANCE/DEVELOPMENT OF ADDICTION, MOOD DISTURBANCE AND DEPRESSION, OSTEOPOROSIS, HORMONAL AND LABIDAL CHANGES, RESPIRATORY DEPRESSION AND . PATIENT IS ADVISED NOT TO DRIVE OR DRINK ALCOHOL WHILE ON THESE MEDICATIONS. PROCEDURE CODES FA211 ESTABILISHED PATIENT [facility] FACILITY CHARGE DISPOSITION & COMMUNICATION FOLLOW UP 2 MONTHS ELECTRONICALLY SIGNED BY ARIADNA HEREDIA ON 12/20/2018 AT 03:07 PM EDT DISCLAIMER : THIS IS A VISIT SUMMARY EXTRACTED FROM THE [employer] CHART. IT IS NOT A COPY OF THE [employer] PROGRESS NOTE. KENNETH
== END ==
LOC: M PAIN 14:00
PROVIDERS: ATTEND Nurse Practitioner Family
DX: K62.89 Other specified diseases of anus and rectum (principal); M51.16 Intervertebral disc disorders with radiculopathy, lumbar region; G89.29 Other chronic pain; R73.01 Impaired fasting glucose; K21.9 Gastro-esophageal reflux disease without esophagitis; G25.81 Restless legs syndrome; D50.9 Iron deficiency anemia, unspecified; Z79.899 Other long term (current) drug therapy; Z88.2 Allergy status to sulfonamides; Z88.6 Allergy status to analgesic agent; Z88.8 Allergy status to other drugs, medicaments and biological substances; Z91.81 History of falling; Z91.018 Allergy to other foods; Z91.09 Other allergy status, other than to drugs and biological substances; Z86.79 Personal history of other diseases of the circulatory system; Z87.891 Personal history of nicotine dependence

== ENCOUNTER → 2019-04-02 | Outpatient (CLI) | payer OTHER ==
--- NOTE | 2019-04-15 01:26 | ECWPNPC ---
PATIENT NAME: ALESSANDRA LYNN : 1965 GENDER: FEMALE VISIT DATE: 04/02/2019 DISCHARGE DATE: 04/02/19 1521 VISIT LOCKED DATE TIME: PHYSICIAN: SHAKIR DAVILA PHYSICIAN PAGER NO: [phone] RESOURCE: SHAKIR DAVILA REASON FOR APPOINTMENT 1. 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 PAIN THE PATIENT DESCRIBES THE PAIN... THE PATIENT DESCRIBES THE PAIN... FALL RISK SCREENING: SCREENING :NO FALLS REPORTED IN THE LAST YEAR CURRENT MEDICATIONS TAKING PROTONIX 40 MG TABLET DELAYED RELEASE 1 TABLET ORALLY ONCE A DAY TAKING ZOLOFT 100 MG TABLET 2 TABLETS ORALLY ONCE A DAY TAKING VITAMIN D (CHOLECALCIFEROL) 5000 TABLET 1 TAB ORALLY ONCE A DAY TAKING CALCIUM 600 + D 600-400 MG-UNIT TABLET 1 TABLET ORALLY BID TAKING MULTIVITAMINS OTC TABLET 1 TABLET ORALLY ONCE A DAY TAKING MILK THISTLE 1 CAPSULE 1 CAP(S) ORALLY BID TAKING MUPIROCIN 2 % OINTMENT 1 APPLICATION TO EFFECTED AREA ON ARM, SMALL AMOUNT EXTERNALLY THREE TIMES A DAY ALFONSO ([facility] [employer] [facility] TAKING CAMPHOR-MENTHOL _ OINTMENT APPLY TOPICALLY EXTERNALLY TWICE A DAY X 7 DAYS WITH FLARES C CLOBETASOL 0.05% OINTMENT TAKING VITAMIN B COMPLEX OTC TABLET 1 TABLET ORALLY ONCE A DAY TAKING FISH OIL 1000 MG CAPSULE 1 CAPSULE BY MOUTH ONCE A DAY TAKING FERROUS GLUCONATE 325 (36 FE) MG TABLET 1 TABLET ORALLY ONCE A DAY TAKING DICYCLOMINE HCL 10 MG CAPSULE 1 CAPSULES ORALLY THREE TIMES A DAY NEEDED FOR ABDOMINAL SPASM TAKING MIRALAX POWDER POWDER 17 GM ORALLY ONCE A DAY TAKING METAMUCIL 28.3 % POWDER DIRECTED ORALLY BEDTIME TAKING NARCAN 4 MG/0.1ML LIQUID DIRECTED NASALLY USE PRN RESPIRATORY SUPPRESSION OR OVERDOSE AND CALL 911 TAKING LIDOCAINE VISCOUS 2 % SOLUTION 15 ML TO AFFECTED AREA NEEDED MOUTH/THROAT EVERY 3 HRS TO WOUND AREAS FOR PAIN TAKING KLONOPIN 1 MG TABLET 1 TABLET ORALLY THREE TIMES A DAY NEEDED MDD3 TAKING HYDROXYZINE HCL 50 MG TABLET 2 TABLET ORALLY AT BEDTIME TAKING MORPHINE SULFATE 30 MG TABLET 1 TABLET NEEDED ORALLY EVERY 4 HRS PRN PAIN MDD=6 NOT-TAKING SILVADENE 1 % CREAM 1 APPLICATION TO AFFECTED AREA EXTERNALLY ONCE A DAY NOT-TAKING AMITIZA 8 MCG CAPSULE 1 TAB ORALLY BID PRN NOT-TAKING SERTRALINE HCL 100 MG TABLET 2 TABLETS ORALLY ONCE A DAY NOT-TAKING MUPIROCIN 2 % OINTMENT APPLY A SMALL AMOUNT TO AFFECTED AREA ON ARM THREE TIMES DAILY TOPICALLY THREE TIMES DAILY, NOTES: DUPLICATE NOT-TAKING PANTOPRAZOLE SODIUM 40 MG TABLET DELAYED RELEASE 1 TABLET ORALLY EVERY MORNING, NOTES: DUPLICATE NOT-TAKING PANTOPRAZOLE SODIUM 40 MG TABLET DELAYED RELEASE 1 TABLET ORALLY EVERY MORNING, NOTES: DUPLICATE NOT-TAKING SERTRALINE HCL 100 MG TABLET 2 TABLETS ORALLY ONCE A DAY, NOTES: DUPLICATE NOT-TAKING CARAFATE 1 GM TABLET 1 TABLET ON AN EMPTY STOMACH BEFORE MEALS ORALLY FOUR TIMES DAILY NEEDED NOT-TAKING PROBIOTIC - TABLET DELAYED RELEASE ORALLY NOT-TAKING MACROBID 100 MG CAPSULE 1 CAPSULE WITH FOOD ORALLY EVERY 12 HRS MEDICATION LIST REVIEWED AND RECONCILED WITH THE PATIENT PAST MEDICAL HISTORY NEURODERMATITIS-AGREED UPON BY KEON AND DR. JACQUELINE SIMMONS DERM AT [facility] MDD, RECURRENT/CHETNA CERVICAL/LUMBAR DJD BORDERLINE PROLONGED QTC SYNDROME/HISTORY OF SYNCOPE NOT CORRELATED TO CARDIAC ARRHYTHMIA IMPAIRED FASTING GLUCOSE INSOMNIA/RESTLESS LEG SYNDROME GERD/DYSPEPSIA DYSMENORRHEA IBS CONSTIPATION TYPE MITRAL VALVE PROLAPSE/TRACE MR BY TTE NOVEMBER 2010-[place] IRON-DEFICIENCY ANEMIA MUCOSAL PROLAPSE SYNDROME STATUS POST TEMS PROCEDURE LA GRADE B ESOPHAGITIS AND DENTATE LINE ACUTE GENERALIZED URTICARIA S ANGIODEMA-? HONEY DUARTE EXPOSURE02/2018 ALLERGIES NSAIDS: RINGING OF EARS - SIDE EFFECTS FISH OIL (CERTAIN BRANDS ONLY): SWELLING - SIDE EFFECTS SULFA: RASH,DIARRHEA - ALLERGY HONEY MANGOS: SWELLING, RASH, ITCH SURGICAL HISTORY [facility] [place] AT [place] 07/2011 FELL DOING LAUNDRY, BROKE L FEMUR WITH ORIF 2000 FAMILY HISTORY FATHER: ALIVE, DIAGNOSED WITH HYPERTENSION MOTHER: ALIVE, HYPERTENSION DADS SIDE OF THE FAMILY-HEART ISSUES. HOSPITALIZATION/MAJOR DIAGNOSTIC PROCEDURE FELL DOING LAUNDRY, BROKE L FEMUR WITH ORIF 2001 IRON DEFICIENCY ANEMIA 12/2016 REVIEW OF SYSTEMS REVIEWED BY: PROVIDER: SHAKIR ROSENTHAL . CONSTITUTIONAL: ANY CHANGE IN YOUR MEDICAL CONDITION? NO . CHILLS NO . FEVER NO . INFECTION: DO YOU HAVE NEW INFECTIONS? NO . DO YOU HAVE HISTORY OF MRSA? NO . MUSCULOSKELETAL: ANY NEW PATTERNS OF PAIN OR NUMBNESS? LEFT KNEE . GASTROENTEROLOGY: ANY NEW CHANGE IN BOWEL CONTROL? NO . GENITOURINARY: ANY NEW CHANGE IN BLADDER CONTROL? NO . IS THERE A CHANCE YOU COULD BE ? NO . HEMATOLOGY/LYMPH: DO YOU TAKE ANY BLOOD THINNERS? (FOR EXAMPLE- COUMADIN, PLAVIX, AGGRENOX, PLATEL, PRADAXA, OR XARELTO) NO . WHEN WAS YOUR LAST DOSE? DATE: TIME: . NEUROLOGY: HAVE YOU FALLEN IN THE PAST 12 MONTHS? YES JUST FALLS . ANY NEW EXTREMITY NUMBNESS OR WEAKNESS? NO . CARDIOLOGY: DO YOU HAVE A PACEMAKER OR DEFIBRILLATOR? NO . RESPIRATORY: HAVE YOU BEEN SICK IN THE PAST WEEK? NO . FEVER NO . FLU LIKE SYMPTOMS? NO . COUGH NO . INTEGUMENTARY: DO YOU HAVE ANY RASHES OR OPEN SORES? NO . ALLERGIC/IMMUNO: ARE YOU ALLERGIC TO IV DYE? NO . ANY NEW ALLERGIES? NO . PSYCHIATRIC: DO YOU HAVE THOUGHTS OF HURTING YOURSELF OR SOMEONE ELSE? NO . ARE YOU ABUSED, NEGLECTED, OR IN AN UNSAFE ENVIRONMENT? NO . ENDOCRINOLOGY: ARE YOU DIABETIC? NO . OTHER: DO YOU NEED ANY PRESCRIPTIONS? YES ALREADY DID ON THE COMPLUTER . IF YES, PLEASE LIST: ____ . ANY NEW PROBLEMS WITH YOUR MEDICATIONS? NO . WHEN DID YOU LAST EAT? ____ . WHEN DID YOU LAST DRINK? ____ . WHAT DID YOU LAST DRINK? ____ . NAME OF PERSON DRIVING YOU HOME? ____ . DO YOU HAVE ANY OTHER QUESTIONS OR CONCERNS NO . VITAL SIGNS WT 166.6 LBS, HT 65 IN, BMI 27.72 INDEX, BP 141/78 MM HG, HR 57 /MIN, RR 18 /MIN, TEMP 96.7 F, OXYGEN SAT % 96%, NA INITIALS SC 14:23, REVIEWED BY: KG. EXAMINATION GENERAL EXAMINATION: GENERALAWAKE,ALERT ,PLEAASANT . PSYCHAFFECT NORMAL . LUNGS:LUNG CLOLAZO ARE CLEAR TO AUSCULTATION BILATERALLY. GOOD MOVEMENT OF AIR . HEART:S1, S2 IN A REGULAR RATE AND RHYTHM. NO SIGNIFICANT MURMURS, RUBS OR GALLOPS NOTED . ASSESSMENTS RECTAL PAIN, CHRONIC - K62.89 (PRIMARY) LUMBAR DISC DISEASE WITH RADICULOPATHY - M51.16 CHRONIC PRESCRIPTION OPIATE USE - Z79.899 TREATMENT RECTAL PAIN, CHRONIC REFILL LIDOCAINE VISCOUS SOLUTION, 2 %, 15 ML TO AFFECTED AREA NEEDED, MOUTH/THROAT, EVERY 3 HRS TO WOUND AREAS FOR PAIN, 30 DAYS, 150, REFILLS 2 NOTES: ISTOP REGISTRY REVIEWED AND DEMONSTRATES COMPLLIANCE. BRINGS IN MEDICATIONS WHICH IS APPROPRIATE FOR WHAT WAS DISPENSED. RECENT URINE TOXICOLOGY REVIEWED. NO UNAUTHORIZED MEDICATIONS. NO ILLICIT SUBSTANCES AND PRESCRIBED MEDICATIONS WERE PRESENT. URINE TOX TODAY, RISKS AND BENEFITS OF NARCOTIC/OPIOD MEDICATIONS WERE REVIEWED WITH PATIENT - THIS INCLUDES BUT IS NOT LIMITED TO RISK OF DEPENDANCE/DEVELOPMENT OF ADDICTION, MOOD DISTURBANCE AND DEPRESSION, OSTEOPOROSIS, HORMONAL AND LABIDAL CHANGES, RESPIRATORY DEPRESSION AND . PATIENT IS ADVISED NOT TO DRIVE OR DRINK ALCOHOL WHILE ON THESE MEDICATIONS. PROCEDURE CODES FA211 ESTABILISHED PATIENT [facility] CHARGE DISPOSITION & COMMUNICATION FOLLOW UP 3 MONTHS (REASON: MED MGMNT) ELECTRONICALLY SIGNED BY ARIADNA HEREDIA ON 04/14/2019 AT 03:59 PM EDT DISCLAIMER : THIS IS A VISIT SUMMARY EXTRACTED FROM THE [employer] CHART. IT IS NOT A COPY OF THE [employer] PROGRESS NOTE. KENNETH
== END ==
LOC: M PAIN 14:15
PROVIDERS: ATTEND Nurse Practitioner Family
DX: K62.89 Other specified diseases of anus and rectum (principal); M51.16 Intervertebral disc disorders with radiculopathy, lumbar region; G89.29 Other chronic pain; R73.01 Impaired fasting glucose; G47.00 Insomnia, unspecified; G25.81 Restless legs syndrome; K21.9 Gastro-esophageal reflux disease without esophagitis; D50.9 Iron deficiency anemia, unspecified; Z87.81 Personal history of (healed) traumatic fracture; Z88.2 Allergy status to sulfonamides; Z88.6 Allergy status to analgesic agent; Z88.8 Allergy status to other drugs, medicaments and biological substances; Z91.018 Allergy to other foods; Z79.899 Other long term (current) drug therapy

== ENCOUNTER → 2019-06-16 | Outpatient (CLI) | payer OTHER ==
[2019-06-16 17:28] LABS: BASO # 0.1 10^3/uL (0.0-0.2); BASO % 1.1 % (0.0-1.0); EOS # 0.1 10^3/uL (0.0-0.5); EOS % 2.2 % (0.0-3.0); HEMATOCRIT 32.8 % (36.0-47.0); HEMOGLOBIN 10.4 g/dl (12.0-15.5); LYMPH # 1.6 10^3/uL (1.5-5.0); LYMPH % 36.4 % (24.0-44.0); MEAN CORPUSCULAR HEMOGLOBIN 29.5 pg (27.0-33.0); MEAN CORPUSCULAR HGB CONC 31.7 g/dl (32.0-36.5); MEAN CORPUSCULAR VOLUME 93.2 fl (80.0-96.0); MONO # 0.3 10^3/uL (0.0-0.8); MONO % 6.9 % (0.0-5.0); NEUTROPHILS # 2.4 10^3/uL (1.5-8.5); NEUTROPHILS % 53.2 % (36.0-66.0); PLATELET COUNT, AUTOMATED 261 10^3/uL (150-450); RED BLOOD COUNT 3.52 10^6/uL (4.00-5.40); WHITE BLOOD COUNT 4.5 10^3/uL (4.0-10.0)
[2019-06-16 17:36] LABS: ALBUMIN 3.8 GM/DL (3.2-5.2); ALT/SGPT 17 U/L (12-78); BILIRUBIN,TOTAL 0.3 MG/DL (0.2-1.0); BLOOD UREA NITROGEN 15 MG/DL (7-18); CALCIUM LEVEL 9.1 MG/DL (8.5-10.1); CARBON DIOXIDE LEVEL 30 MEQ/L (21-32); CHLORIDE LEVEL 107 MEQ/L (98-107); CREATININE FOR GFR 0.97 MG/DL (0.55-1.30); GLOMERULAR FILTRATION RATE > 60.0 (>51); GLUCOSE, FASTING 83 MG/DL (70-100); MAGNESIUM LEVEL 2.4 MG/DL (1.8-2.4); POTASSIUM SERUM 3.8 MEQ/L (3.5-5.1); SODIUM LEVEL 142 MEQ/L (136-145); TOTAL PROTEIN 6.6 GM/DL (6.4-8.2)
[2019-06-16 17:46] LABS: TOTAL 25(OH) VITAMIN D 44.9 NG/ML (30.0-100.0)
[2019-06-16 17:47] LABS: PTH INTACT 76.8 PG/ML (18.5-88.0)
== END ==
LOC: M LAB 16:06
PROVIDERS: ATTEND Family Medicine
DX: I10 Essential (primary) hypertension (principal); E55.9 Vitamin D deficiency, unspecified; D50.9 Iron deficiency anemia, unspecified

== ENCOUNTER → 2019-06-25 | Outpatient (CLI) | payer OTHER ==
--- NOTE | 2019-06-30 13:22 | ECWPNPC ---
PATIENT NAME: ALESSANDRA LYNN : 1965 GENDER: FEMALE VISIT DATE: 06/25/2019 DISCHARGE DATE: 06/25/19 1508 VISIT LOCKED DATE TIME: PHYSICIAN: LIZ ORTIZ PHYSICIAN PAGER NO: [phone] RESOURCE: LIZ ORTIZ REASON FOR APPOINTMENT 1. MED MGMT HISTORY OF PRESENT ILLNESS HISTORY OF PRESENT ILLNESS: PAIN THE PATIENT DESCRIBES THE PAIN... 53-YEAR-OLD FEMALE IN FOR CHRONIC PAIN FOLLOW-UP. SHE RATES HER PAIN CURRENTLY AT A 4-5 OUT OF 10 AND DESCRIBES IT ACHING, SORE, AND NUMBNESS. SHE FEELS MEDICATIONS ARE WORKING WELL AND DENIES MED SIDE EFFECTS AT THIS TIME. FALL RISK SCREENING: SCREENING :NO FALLS REPORTED IN THE LAST YEAR CURRENT MEDICATIONS TAKING VITAMIN D (CHOLECALCIFEROL) 5000 TABLET 1 TAB ORALLY ONCE A DAY TAKING CALCIUM 600 + D 600-400 MG-UNIT TABLET 1 TABLET ORALLY BID TAKING MULTIVITAMINS OTC TABLET 1 TABLET ORALLY ONCE A DAY TAKING MILK THISTLE 1 CAPSULE 1 CAP(S) ORALLY BID TAKING KLONOPIN 1 MG TABLET 1 TABLET ORALLY THREE TIMES A DAY NEEDED MDD3 TAKING MUPIROCIN 2 % OINTMENT 1 APPLICATION TO EFFECTED AREA ON ARM, SMALL AMOUNT EXTERNALLY THREE TIMES A DAY ALFONSO (ORDER FROM [facility]EL[facility]) TAKING CAMPHOR-MENTHOL _ OINTMENT APPLY TOPICALLY EXTERNALLY TWICE A DAY X 7 DAYS WITH FLARES C CLOBETASOL 0.05% OINTMENT TAKING VITAMIN B COMPLEX OTC TABLET 1 TABLET ORALLY ONCE A DAY TAKING FISH OIL 1000 MG CAPSULE 1 CAPSULE BY MOUTH ONCE A DAY TAKING HYDROXYZINE HCL 50 MG TABLET 2 TABLET ORALLY AT BEDTIME TAKING FERROUS GLUCONATE 325 (36 FE) MG TABLET 1 TABLET ORALLY ONCE A DAY TAKING DICYCLOMINE HCL 10 MG CAPSULE 1 CAPSULES ORALLY THREE TIMES A DAY NEEDED FOR ABDOMINAL SPASM TAKING MIRALAX POWDER POWDER 17 GM ORALLY ONCE A DAY TAKING METAMUCIL 28.3 % POWDER DIRECTED ORALLY BEDTIME TAKING NARCAN 4 MG/0.1ML LIQUID DIRECTED NASALLY USE PRN RESPIRATORY SUPPRESSION OR OVERDOSE AND CALL 911 TAKING MORPHINE SULFATE 30 MG TABLET 1 TABLET NEEDED ORALLY EVERY 4 HRS PRN PAIN MDD=6 TAKING SERTRALINE HCL 100 MG TABLET 2 TABLETS ORALLY ONCE A DAY TAKING PANTOPRAZOLE SODIUM 40 MG TABLET DELAYED RELEASE 1 TABLET ORALLY EVERY MORNING TAKING LIDOCAINE VISCOUS 2 % SOLUTION 15 ML TO AFFECTED AREA NEEDED MOUTH/THROAT EVERY 3 HRS TO WOUND AREAS FOR PAIN TAKING SERTRALINE HCL 100 MG TABLET 2 TABLETS ORALLY ONCE A DAY TAKING MUPIROCIN 2 % OINTMENT APPLY A SMALL AMOUNT TO AFFECTED AREA ON ARM THREE TIMES DAILY TOPICALLY THREE TIMES DAILY, NOTES: DUPLICATE MEDICATION LIST REVIEWED AND RECONCILED WITH THE PATIENT PAST MEDICAL HISTORY NEURODERMATITIS-AGREED UPON BY KEON AND DR. JACQUELINE SIMMONS DERM AT [facility] MDD, RECURRENT/CHETNA CERVICAL/LUMBAR DJD BORDERLINE PROLONGED QTC SYNDROME/HISTORY OF SYNCOPE NOT CORRELATED TO CARDIAC ARRHYTHMIA IMPAIRED FASTING GLUCOSE INSOMNIA/RESTLESS LEG SYNDROME GERD/DYSPEPSIA DYSMENORRHEA IBS CONSTIPATION TYPE MITRAL VALVE PROLAPSE/TRACE MR BY TTE NOVEMBER 2010-WAN//06/2007 [facility] SPECT-LOW RISK-WAN IRON-DEFICIENCY ANEMIA MUCOSAL PROLAPSE SYNDROME STATUS POST TEMS PROCEDURE LA GRADE B ESOPHAGITIS AND DENTATE LINE ACUTE GENERALIZED URTICARIA S ANGIODEMA-? HONEY DUARTE EXPOSURE02/2018 HO NICOTINE USE-1 PPD X 3Y, QUIT IN 1984 ALLERGIES NSAIDS: RINGING OF EARS - SIDE EFFECTS FISH OIL (CERTAIN BRANDS ONLY): SWELLING - SIDE EFFECTS SULFA: RASH,DIARRHEA - ALLERGY HONEY MANGOS: SWELLING, RASH, ITCH TAPE: RASH - ALLERGY SURGICAL HISTORY TEMS-LORENZO AT [facility] 07/2011 FELL DOING LAUNDRY, BROKE L FEMUR WITH ORIF 2000 FAMILY HISTORY FATHER: ALIVE, DIAGNOSED WITH HYPERTENSION MOTHER: ALIVE, HYPERTENSION 2 SISTER(S) - HEALTHY. 1 CAD/CVA/CANCERS IN 1DR. SOCIAL HISTORY GENERAL: TOBACCO USE ARE YOU A:FORMER SMOKER HOW LONG HAS IT BEEN SINCE YOU LAST SMOKED?> 10 YEARS HIV / HEP-C SCREENING HIV TEST OFFERED TO PATIENT:YES DATE OFFERED:05/11/2017 TEST ACCEPTED:NO HEP-C TEST OFFERED TO PATIENT:YES DATE OFFERED:05/11/2017 REASON:OTHER (DOCUMENT IN NOTE) PATIENT ALREADY TESTTED TEST ACCEPTED:NO REASON:OTHER (DOCUMENT IN NOTE) LREADY TESTED BROCHURE PROVIDED TO PATIENTYES LANGUAGE LANGUAGES SPOKEN:DJIBOUTIAN DOMESTIC VIOLENCE DO YOU FEEL SAFE IN YOUR ENVIRONMENT?YES RECREATIONAL DRUG USE DRUG USE?NO EXERCISE: WALKS. LEARNING BARRIERS / SPECIAL NEEDS CHANGE FROM LAST VISIT?YES BARRIERS TO LEARNING?NO HEARING IMPAIRED?NO VISION IMPAIRED?YES COGNITIVELY IMPAIRED?NO :CORRECTIVE LENSES READING GLASSES READINESS TO LEARN?YES LEARNING PREFERENCES?NO LEARNING CAPABILITIES PRESENT?YES EMOTIONAL BARRIERS?NO SPECIAL DEVICES?NO FENCE MACHINE OPERATOR NEEDED?NO PAIN CLINIC PFS, CLERGY, PUBLIC HEALTH REFERRALS PFS REFERRAL NEEDED?NO CLERGY REFERRAL NEEDED?NO PUBLIC HEALTH REFERRAL NEEDED?NO WAS THE PROVIDER NOTIFIED OF ANY PERTINENT INFO?YES HAS THE PATIENT BEEN EDUCATED REGARDING HIS/HER PLAN OF CARE?YES HAS THE PATIENT BEEN EDUCATED REGARDING PAIN, THE RISK FOR PAIN, THE IMPORTANCE OF EFFECTIVE PAIN MANAGEMENT, AND THE PAIN ASSESSMENT PROCESS?YES LATEX QUESTIONNAIRE LATEX ALLERGY : HAVE YOU EVER DEVELOPED ANY TYPE OF REACTION AFTER HANDLING LATEX PRODUCTS SUCH RUBBER GLOVES, CONDOMS, DIAPHRAGMS, BALLOONS, SOCKS, OR UNDERWEAR?NO LATEX ALLERGY : HAVE YOU EVER DEVELOPED ANY TYPE OF REACTION DURING OR AFTER DENTAL APPOINTMENT, VAGINAL/RECTAL EXAMINATION, SURGICAL PROCEDURE, OR ANY OTHER EXPOSURE?NO LATEX RISK : HAVE YOU EVER HAD ANY DIFFICULTY BREATHING OR HIVES AFTER EATING OR HANDLING ANY FRUITS, OR VEGETABLES; SUCH KIWI, BANANAS, STONE FRUITS, OR CHESTNUTSNO LATEX RISK : DO YOU HAVE A PREVIOUS PERSONAL HISTORY OF MORE THAN NINE SURGERIES, SPINA BIFIDA, OR REPEATED CATHERIZATIONS? NO LATEX RISK : ARE YOU FREQUENTLY EXPOSED TO LATEX PRODUCTS IN YOUR OCCUPATION?NO DATE ASKED : 06/25/2019 CAFFEINE CAFFEINE USE?YES HOW OFTEN AND HOW MUCH? ONE CUP OF COFFE IN THE MORNING ADVANCE DIRECTIVE ADVANCE DIRECTIVE DISCUSSED WITH PATIENT:YES HCP - CHELLE LYNN RASTAFARI RASTAFARI NO ZOROASTRIAN BELIEFS THAT WOULD IMPACT HEALTH CARE. MARITAL STATUS: . ALCOHOL SCREENING DID YOU HAVE A DRINK CONTAINING ALCOHOL IN THE PAST YEAR?YES HOW OFTEN DID YOU HAVE SIX OR MORE DRINKS ON ONE OCCASION IN THE PAST YEAR?NEVER (0 POINTS) HOW MANY DRINKS DID YOU HAVE ON A TYPICAL DAY WHEN YOU WERE DRINKING IN THE PAST YEAR?1 OR 2 (0 POINTS) HOW OFTEN DID YOU HAVE A DRINK CONTAINING ALCOHOL IN THE PAST YEAR?FOUR OR MORE TIMES A WEEK (4 POINTS) POINTS4 INTERPRETATIONPOSITIVE SEXUAL HX HAD SEX IN THE LAST 12 MONTHS (VAGINAL, ORAL, OR ANAL)?YES WITHMEN ONLY USE PROTECTION?NO HAVE YOU EVER HAD AN STD?NO REVIEWED WITH PATIENT 12/20/18 1650 JS. HOSPITALIZATION/MAJOR DIAGNOSTIC PROCEDURE FELL DOING LAUNDRY, BROKE L FEMUR WITH ORIF 2000 IRON DEFICIENCY ANEMIA 12/2016 IRON DEFICIENCY ANEMIA 06/07-06/08 RECEIVED BLOOD TRANSFUSION- DUE TO HEAD LACERATION 05/2019 REVIEW OF SYSTEMS REVIEWED BY: PROVIDER: KEITH ROSENTHAL-C . CONSTITUTIONAL: ANY CHANGE IN YOUR MEDICAL CONDITION? EKG, INVERTED T WAVES, ACCORDING TO EKG . CHILLS NO . FEVER NO . INFECTION: DO YOU HAVE NEW INFECTIONS? NO . DO YOU HAVE HISTORY OF MRSA? NO . MUSCULOSKELETAL: ANY NEW PATTERNS OF PAIN OR NUMBNESS? NO . GASTROENTEROLOGY: ANY NEW CHANGE IN BOWEL CONTROL? NO . GENITOURINARY: ANY NEW CHANGE IN BLADDER CONTROL? NO . IS THERE A CHANCE YOU COULD BE ? NO . HEMATOLOGY/LYMPH: DO YOU TAKE ANY BLOOD THINNERS? (FOR EXAMPLE- COUMADIN, PLAVIX, AGGRENOX, PLATEL, PRADAXA, OR XARELTO) NO . WHEN WAS YOUR LAST DOSE? DATE: TIME: . NEUROLOGY: HAVE YOU FALLEN IN THE PAST 12 MONTHS? YES, PT STATES THAT SHE WAS HOME WHEN SHE FELL, NO INJURY, NO REPORT TO ED . ANY NEW EXTREMITY NUMBNESS OR WEAKNESS? NO . CARDIOLOGY: DO YOU HAVE A PACEMAKER OR DEFIBRILLATOR? NO . RESPIRATORY: HAVE YOU BEEN SICK IN THE PAST WEEK? NO . FEVER NO . FLU LIKE SYMPTOMS? NO . COUGH NO . INTEGUMENTARY: DO YOU HAVE ANY RASHES OR OPEN SORES? NO . ALLERGIC/IMMUNO: ARE YOU ALLERGIC TO IV DYE? NO . ANY NEW ALLERGIES? YES, TEGADERM, TAPE . PSYCHIATRIC: DO YOU HAVE THOUGHTS OF HURTING YOURSELF OR SOMEONE ELSE? NO . ARE YOU ABUSED, NEGLECTED, OR IN AN UNSAFE ENVIRONMENT? NO . ENDOCRINOLOGY: ARE YOU DIABETIC? NO . OTHER: DO YOU NEED ANY PRESCRIPTIONS? NO . IF YES, PLEASE LIST: ____ . ANY NEW PROBLEMS WITH YOUR MEDICATIONS? NO . WHEN DID YOU LAST EAT? ____ . WHEN DID YOU LAST DRINK? ____ . WHAT DID YOU LAST DRINK? ____ . NAME OF PERSON DRIVING YOU HOME? ____ . DO YOU HAVE ANY OTHER QUESTIONS OR CONCERNS PT STATES THAT SHE IS HAVING FLU SHOT IN JULY 2019PT STATED THAT SHE WAS FEELING SLIGHTLY LIGHT-HEADED, RECHECK BLOOD PRESSURE 142/82, HR 55-60 BPM, PT TOLERATED PO FLUIDS, PT AMBULATING WITHOUT DIFFICULTY. AT DISCHARGE EDUCATED PT REGARDING REPORTING TO URGENT CARE OR ED IF SYMPTOMS OF LIGHT-HEADEDNESS PERSIST. DS . VITAL SIGNS WT 165.6 LBS, HT 65 IN, BMI 27.55 INDEX, BP 166/65 MM HG, REPEAT BP 142/82 MM HG, HR 53 /MIN, RR 18 /MIN, TEMP 97.7 F, OXYGEN SAT % 98%, SAFE IN ENV? (Y/N) Y, NA INITIALS AW 1421, REVIEWED BY: RAQUEL. EXAMINATION GENERAL EXAMINATION: GENERALNO ACUTE DISTRESS, WELL NOURISHED AND HYDRATED. PSYCHAPPROPRIATE MOOD AND AFFECT . LUNGS:CLEAR TO AUSCULTATION BILATERALLY, NO WHEEZES, RHONCHI, RALES. HEART:NO MURMURS, REGULAR RATE AND RHYTHM. ASSESSMENTS LUMBAR DISC DISEASE WITH RADICULOPATHY - M51.16 (PRIMARY) TREATMENT LUMBAR DISC DISEASE WITH RADICULOPATHY CLINICAL NOTES: 53-YEAR-OLD FEMALE IN FOR CHRONIC PAIN FOLLOW-UP. SHE DOES ADMIT TO SYMPTOMS OF LIGHTHEADEDNESS AND WAS GIVEN ORANGE JUICE WHICH SHE STATES IT MADE HER FEEL BETTER. SHE WAS ENCOURAGED TO GO TO THE URGENT CARE SHOULD SHE EXPERIENCE PERSISTENT SYMPTOMS AND/OR HER SYMPTOMS WORSEN. GIVEN PRESENTING SYMPTOMS AND RESULTS OF PHYSICAL EXAMINATION RECOMMENDED CONTINUATION OF CURRENT MEDICATION REGIMEN WITH FOLLOW-UP IN 3 MONTHS. PATIENT HAS EXPRESSED UNDERSTANDING OF AND WAS IN AGREEMENT WITH TREATMENT PLAN. GIVEN TIME TO ASK QUESTIONS AND EXPRESS CONCERNS., ISTOP REGISTRY REVIEWED AND DEMONSTRATES COMPLLIANCE. (REF # [id number] ) BRINGS IN MEDICATIONS WHICH IS APPROPRIATE FOR WHAT WAS DISPENSED. RECENT URINE TOXICOLOGY REVIEWED. NO UNAUTHORIZED MEDICATIONS. NO ILLICIT SUBSTANCES AND PRESCRIBED MEDICATIONS WERE PRESENT. PREVENTIVE MEDICINE PAIN CLINIC TEACHING: THE PATIENT HAS BEEN EDUCATED REGARDING HIS/HER PLAN OF CARE : PT EDUCATED REGARDING SYMPTOMS AND REPORTING TO URGENT CARE OR ED IF SYMPTOMS OF LIGHT-HEADEDNESS PERSIST, PT ACKNOWLEDGED UNDERSTANDING. PROCEDURE CODES FA211 ESTABILISHED PATIENT [facility] CHARGE DISPOSITION & COMMUNICATION FOLLOW UP 3 MONTHS (REASON: CHRONIC PAIN) ELECTRONICALLY SIGNED BY ARIADNA DECKER ON 06/26/2019 AT 12:46 PM EDT DISCLAIMER : THIS IS A VISIT SUMMARY EXTRACTED FROM THE [employer] CHART. IT IS NOT A COPY OF THE [employer] PROGRESS NOTE. KENNETH
== END ==
LOC: M PAIN 14:15
PROVIDERS: ATTEND Family Medicine
DX: M51.16 Intervertebral disc disorders with radiculopathy, lumbar region (principal); G89.29 Other chronic pain; R73.01 Impaired fasting glucose; G47.00 Insomnia, unspecified; G25.81 Restless legs syndrome; K21.9 Gastro-esophageal reflux disease without esophagitis; D50.9 Iron deficiency anemia, unspecified; Z87.891 Personal history of nicotine dependence; Z88.2 Allergy status to sulfonamides; Z88.6 Allergy status to analgesic agent; Z91.018 Allergy to other foods; Z91.09 Other allergy status, other than to drugs and biological substances; Z79.899 Other long term (current) drug therapy

== ENCOUNTER → 2019-08-29 | Outpatient (CLI) | payer OTHER ==
--- NOTE | 2019-09-02 04:37 | ECWPNPC ---
PATIENT NAME: ALESSANDRA LYNN : 1965 GENDER: FEMALE VISIT DATE: 08/29/2019 DISCHARGE DATE: 08/29/19 1517 VISIT LOCKED DATE TIME: PHYSICIAN: LIZ ORTIZ PHYSICIAN PAGER NO: [phone] RESOURCE: LIZ ORTIZ REASON FOR APPOINTMENT 1. 3 MONTHS HISTORY OF PRESENT ILLNESS HISTORY OF PRESENT ILLNESS: PAIN THE PATIENT DESCRIBES THE PAIN... 53-YEAR-OLD FEMALE IN FOR CHRONIC PAIN FOLLOW-UP. SHE RATES HER PAIN CURRENTLY AT A 5 OUT OF 10 AND DESCRIBES IT ACHING, SORE, AND TENDER. SHE THINKS HER MEDICATIONS ARE WORKING WELL AND DENIES BEEN SIDE EFFECTS AT THIS TIME. FALL RISK SCREENING: SCREENING :NO FALLS REPORTED IN THE LAST YEAR CURRENT MEDICATIONS TAKING VITAMIN D (CHOLECALCIFEROL) 5000 TABLET 1 TAB ORALLY ONCE A DAY TAKING CALCIUM 600 + D 600-400 MG-UNIT TABLET 1 TABLET ORALLY BID TAKING MULTIVITAMINS OTC TABLET 1 TABLET ORALLY ONCE A DAY TAKING MILK THISTLE 1 CAPSULE 1 CAP(S) ORALLY BID TAKING VITAMIN B COMPLEX OTC TABLET 1 TABLET ORALLY ONCE A DAY TAKING FISH OIL 1000 MG CAPSULE 1 CAPSULE BY MOUTH ONCE A DAY TAKING FERROUS GLUCONATE 325 (36 FE) MG TABLET 1 TABLET ORALLY ONCE A DAY TAKING DICYCLOMINE HCL 10 MG CAPSULE 1 CAPSULES ORALLY THREE TIMES A DAY NEEDED FOR ABDOMINAL SPASM TAKING MIRALAX POWDER POWDER 17 GM ORALLY ONCE A DAY TAKING METAMUCIL 28.3 % POWDER DIRECTED ORALLY BEDTIME TAKING NARCAN 4 MG/0.1ML LIQUID DIRECTED NASALLY USE PRN RESPIRATORY SUPPRESSION OR OVERDOSE AND CALL 911 TAKING LIDOCAINE VISCOUS 2 % SOLUTION 15 ML TO AFFECTED AREA NEEDED MOUTH/THROAT EVERY 3 HRS TO WOUND AREAS FOR PAIN TAKING SERTRALINE HCL 100 MG TABLET 2 TABLETS ORALLY ONCE A DAY TAKING MUPIROCIN 2 % OINTMENT 1 APPLICATION TO EFFECTED AREA ON ARM, SMALL AMOUNT EXTERNALLY THREE TIMES A DAY ALFONSO (ORDER FROM [facility]) TAKING KLONOPIN 1 MG TABLET 1 TABLET ORALLY THREE TIMES A DAY NEEDED MDD3 TAKING HYDROXYZINE HCL 50 MG TABLET 2 TABLET ORALLY AT BEDTIME TAKING PANTOPRAZOLE SODIUM 40 MG TABLET DELAYED RELEASE 1 TABLET ORALLY EVERY MORNING TAKING MORPHINE SULFATE 30 MG TABLET 1 TABLET NEEDED ORALLY EVERY 4 HRS PRN PAIN MDD=6 NOT-TAKING CAMPHOR-MENTHOL _ OINTMENT APPLY TOPICALLY EXTERNALLY TWICE A DAY X 7 DAYS WITH FLARES C CLOBETASOL 0.05% OINTMENT DISCONTINUED SERTRALINE HCL 100 MG TABLET 2 TABLETS ORALLY ONCE A DAY, NOTES: DUPLICATE DISCONTINUED MUPIROCIN 2 % OINTMENT APPLY A SMALL AMOUNT TO AFFECTED AREA ON ARM THREE TIMES DAILY TOPICALLY THREE TIMES DAILY, NOTES: DUPLICATE MEDICATION LIST REVIEWED AND RECONCILED WITH THE PATIENT PAST MEDICAL HISTORY NEURODERMATITIS-AGREED UPON BY KEON AND DR. JACQUELINE SIMMONS DERM AT [facility] MDD, RECURRENT/CHETNA CERVICAL/LUMBAR DJD BORDERLINE PROLONGED QTC SYNDROME/HISTORY OF SYNCOPE NOT CORRELATED TO CARDIAC ARRHYTHMIA IMPAIRED FASTING GLUCOSE INSOMNIA/RESTLESS LEG SYNDROME GERD/DYSPEPSIA DYSMENORRHEA IBS CONSTIPATION TYPE MITRAL VALVE PROLAPSE/TRACE MR BY TTE NOVEMBER 2010-WAN//06/2007 [facility] SPECT-LOW RISK-WAN IRON-DEFICIENCY ANEMIA MUCOSAL PROLAPSE SYNDROME STATUS POST TEMS PROCEDURE LA GRADE B ESOPHAGITIS AND DENTATE LINE ACUTE GENERALIZED URTICARIA S ANGIODEMA-? HONEY DUARTE EXPOSURE02/2018 HO NICOTINE USE-1 PPD X 3Y, QUIT IN 1984 ALLERGIES NSAIDS: RINGING OF EARS - SIDE EFFECTS FISH OIL (CERTAIN BRANDS ONLY): SWELLING - SIDE EFFECTS SULFA: RASH,DIARRHEA - ALLERGY HONEY MANGOS: SWELLING, RASH, ITCH TAPE: RASH - ALLERGY SURGICAL HISTORY TEMS-[facility]ORENZO AT [place] 07/2011 FELL DOING LAUNDRY, BROKE L FEMUR WITH ORIF 2000 FAMILY HISTORY FATHER: ALIVE, DIAGNOSED WITH HYPERTENSION MOTHER: ALIVE, HYPERTENSION 2 SISTER(S) - HEALTHY. 1 CAD/CVA/CANCERS IN 1DR. SOCIAL HISTORY GENERAL: TOBACCO USE ARE YOU A:FORMER SMOKER HOW LONG HAS IT BEEN SINCE YOU LAST SMOKED?> 10 YEARS HIV / HEP-C SCREENING HIV TEST OFFERED TO PATIENT:YES DATE OFFERED:05/11/2017 TEST ACCEPTED:NO HEP-C TEST OFFERED TO PATIENT:YES DATE OFFERED:05/11/2017 REASON:OTHER (DOCUMENT IN NOTE) PATIENT ALREADY TESTTED TEST ACCEPTED:NO REASON:OTHER (DOCUMENT IN NOTE) LREADY TESTED BROCHURE PROVIDED TO PATIENTYES LANGUAGE LANGUAGES SPOKEN:AZERI DOMESTIC VIOLENCE DO YOU FEEL SAFE IN YOUR ENVIRONMENT?YES RECREATIONAL DRUG USE DRUG USE?NO EXERCISE: WALKS. LEARNING BARRIERS / SPECIAL NEEDS CHANGE FROM LAST VISIT?YES BARRIERS TO LEARNING?NO HEARING IMPAIRED?NO VISION IMPAIRED?YES COGNITIVELY IMPAIRED?NO :CORRECTIVE LENSES READING GLASSES READINESS TO LEARN?YES LEARNING PREFERENCES?NO LEARNING CAPABILITIES PRESENT?YES EMOTIONAL BARRIERS?NO SPECIAL DEVICES?NO FUR TANNER NEEDED?NO PAIN CLINIC PFS, CLERGY, PUBLIC HEALTH REFERRALS PFS REFERRAL NEEDED?NO CLERGY REFERRAL NEEDED?NO PUBLIC HEALTH REFERRAL NEEDED?NO WAS THE PROVIDER NOTIFIED OF ANY PERTINENT INFO?YES HAS THE PATIENT BEEN EDUCATED REGARDING HIS/HER PLAN OF CARE?YES HAS THE PATIENT BEEN EDUCATED REGARDING PAIN, THE RISK FOR PAIN, THE IMPORTANCE OF EFFECTIVE PAIN MANAGEMENT, AND THE PAIN ASSESSMENT PROCESS?YES LATEX QUESTIONNAIRE LATEX ALLERGY : HAVE YOU EVER DEVELOPED ANY TYPE OF REACTION AFTER HANDLING LATEX PRODUCTS SUCH RUBBER GLOVES, CONDOMS, DIAPHRAGMS, BALLOONS, SOCKS, OR UNDERWEAR?NO LATEX ALLERGY : HAVE YOU EVER DEVELOPED ANY TYPE OF REACTION DURING OR AFTER DENTAL APPOINTMENT, VAGINAL/RECTAL EXAMINATION, SURGICAL PROCEDURE, OR ANY OTHER EXPOSURE?NO DATE ASKED : 06/25/2019 LATEX RISK : HAVE YOU EVER HAD ANY DIFFICULTY BREATHING OR HIVES AFTER EATING OR HANDLING ANY FRUITS, OR VEGETABLES; SUCH KIWI, BANANAS, STONE FRUITS, OR CHESTNUTSNO LATEX RISK : DO YOU HAVE A PREVIOUS PERSONAL HISTORY OF MORE THAN NINE SURGERIES, SPINA BIFIDA, OR REPEATED CATHERIZATIONS? NO LATEX RISK : ARE YOU FREQUENTLY EXPOSED TO LATEX PRODUCTS IN YOUR OCCUPATION?NO CAFFEINE CAFFEINE USE?YES HOW OFTEN AND HOW MUCH? ONE CUP OF COFFE IN THE MORNING ADVANCE DIRECTIVE ADVANCE DIRECTIVE DISCUSSED WITH PATIENT:YES HCP - CHELLE LYNN HINDU HINDU NO MORAVIAN BELIEFS THAT WOULD IMPACT HEALTH CARE. MARITAL STATUS: . ALCOHOL SCREENING DID YOU HAVE A DRINK CONTAINING ALCOHOL IN THE PAST YEAR?YES HOW OFTEN DID YOU HAVE SIX OR MORE DRINKS ON ONE OCCASION IN THE PAST YEAR?NEVER (0 POINTS) HOW MANY DRINKS DID YOU HAVE ON A TYPICAL DAY WHEN YOU WERE DRINKING IN THE PAST YEAR?1 OR 2 (0 POINTS) HOW OFTEN DID YOU HAVE A DRINK CONTAINING ALCOHOL IN THE PAST YEAR?FOUR OR MORE TIMES A WEEK (4 POINTS) POINTS4 INTERPRETATIONPOSITIVE SEXUAL HX HAD SEX IN THE LAST 12 MONTHS (VAGINAL, ORAL, OR ANAL)?YES WITHMEN ONLY USE PROTECTION?NO HAVE YOU EVER HAD AN STD?NO REVIEWED WITH PATIENT 12/20/18 1422 JSREVIEWED WITH PATIENT 08/29/19 LAS. HOSPITALIZATION/MAJOR DIAGNOSTIC PROCEDURE FELL DOING GERMAINE PA FEMUR WITH ORIF 2000 IRON DEFICIENCY ANEMIA 12/2016 IRON DEFICIENCY ANEMIA 06/07-06/08 RECEIVED BLOOD TRANSFUSION- DUE TO HEAD LACERATION 05/2019 REVIEW OF SYSTEMS REVIEWED BY: PROVIDER: KEITH BARRETT . CONSTITUTIONAL: ANY CHANGE IN YOUR MEDICAL CONDITION? NO . CHILLS NO . FEVER NO . INFECTION: DO YOU HAVE NEW INFECTIONS? NO . DO YOU HAVE HISTORY OF MRSA? NO . MUSCULOSKELETAL: ANY NEW PATTERNS OF PAIN OR NUMBNESS? YES PT REPORTS INCREASED PAIN IN HER LEFT SIDE WHERE SCREWS ARE "CAN'T LIE ON LEFT SIDE" . GASTROENTEROLOGY: ANY NEW CHANGE IN BOWEL CONTROL? NO . GENITOURINARY: ANY NEW CHANGE IN BLADDER CONTROL? NO . IS THERE A CHANCE YOU COULD BE ? NO . HEMATOLOGY/LYMPH: DO YOU TAKE ANY BLOOD THINNERS? (FOR EXAMPLE- COUMADIN, PLAVIX, AGGRENOX, PLATEL, PRADAXA, OR XARELTO) NO . WHEN WAS YOUR LAST DOSE? DATE: TIME: . NEUROLOGY: HAVE YOU FALLEN IN THE PAST 12 MONTHS? YES PT REPORTS MULTIPLE FALLS/STUMBLES, NO SERIOUS FALLS, DENIES INJURY. STATES SHE IS "A KLUTZ" . ANY NEW EXTREMITY NUMBNESS OR WEAKNESS? NO . CARDIOLOGY: DO YOU HAVE A PACEMAKER OR DEFIBRILLATOR? NO . RESPIRATORY: HAVE YOU BEEN SICK IN THE PAST WEEK? NO . FEVER NO . FLU LIKE SYMPTOMS? NO . COUGH NO . INTEGUMENTARY: DO YOU HAVE ANY RASHES OR OPEN SORES? YES PT HAS MULTIPLE OPEN AREAS ON ARMS, HER PRIMARY IS LOOKING INTO THIS. ?R/T STRESS? . ALLERGIC/IMMUNO: ARE YOU ALLERGIC TO IV DYE? NO . ANY NEW ALLERGIES? NO . PSYCHIATRIC: DO YOU HAVE THOUGHTS OF HURTING YOURSELF OR SOMEONE ELSE? NO . ARE YOU ABUSED, NEGLECTED, OR IN AN UNSAFE ENVIRONMENT? NO . ENDOCRINOLOGY: ARE YOU DIABETIC? NO . OTHER: DO YOU NEED ANY PRESCRIPTIONS? NO . IF YES, PLEASE LIST: ____ . ANY NEW PROBLEMS WITH YOUR MEDICATIONS? NO . WHEN DID YOU LAST EAT? ____ . WHEN DID YOU LAST DRINK? ____ . WHAT DID YOU LAST DRINK? ____ . NAME OF PERSON DRIVING YOU HOME? ____ . DO YOU HAVE ANY OTHER QUESTIONS OR CONCERNS NO . VITAL SIGNS WT 172.4 LBS, HT 65 IN, BMI 28.69 INDEX, BP 139/67 MM HG, HR 50 /MIN, RR 18 /MIN, TEMP 96.7 F, OXYGEN SAT % 99%, SAFE IN ENV? (Y/N) YES, NA INITIALS CO 14:32, REVIEWED BY: RASHIDA. EXAMINATION GENERAL EXAMINATION: GENERALNO ACUTE DISTRESS, WELL NOURISHED AND HYDRATED. PSYCHAPPROPRIATE MOOD AND AFFECT . LUNGS:CLEAR TO AUSCULTATION BILATERALLY, NO WHEEZES, RHONCHI, RALES. HEART:NO MURMURS, REGULAR RATE AND RHYTHM. ASSESSMENTS CHRONIC PRESCRIPTION OPIATE USE - Z79.899 (PRIMARY) LUMBAR DISC DISEASE WITH RADICULOPATHY - M51.16 TREATMENT CHRONIC PRESCRIPTION OPIATE USE CLINICAL NOTES: 53-YEAR-OLD FEMALE IN FOR CHRONIC PAIN FOLLOW-UP. GIVEN PRESENTING SYMPTOMS AND RESULTS OF PHYSICAL EXAMINATION RECOMMENDED CONTINUATION OF CURRENT MEDICATION REGIMEN WITH FOLLOW-UP IN 3 MONTHS. U TOX TO BE COLLECTED TODAY. PATIENT HAS EXPRESSED UNDERSTANDING OF AND WAS IN AGREEMENT WITH TREATMENT PLAN. GIVEN TIME TO ASK QUESTIONS AND EXPRESS CONCERNS., ISTOP REGISTRY REVIEWED AND DEMONSTRATES COMPLLIANCE. (REF # [id number] ) BRINGS IN MEDICATIONS WHICH IS APPROPRIATE FOR WHAT WAS DISPENSED. RECENT URINE TOXICOLOGY REVIEWED. NO UNAUTHORIZED MEDICATIONS. NO ILLICIT SUBSTANCES AND PRESCRIBED MEDICATIONS WERE PRESENT. DISPOSITION & COMMUNICATION FOLLOW UP 3 MONTHS (REASON: LOW BACK PAIN) ELECTRONICALLY SIGNED BY ARIADNA DECKER ON 09/01/2019 AT 02:40 PM EST DISCLAIMER : THIS IS A VISIT SUMMARY EXTRACTED FROM THE [employer] CHART. IT IS NOT A COPY OF THE [employer] PROGRESS NOTE. KENNETH
== END ==
LOC: M PAIN 14:15
PROVIDERS: ATTEND Family Medicine
DX: M51.16 Intervertebral disc disorders with radiculopathy, lumbar region (principal); Z79.899 Other long term (current) drug therapy

== ENCOUNTER → 2019-12-22 | Outpatient (CLI) | payer OTHER ==
--- NOTE | 2019-12-24 02:55 | ECWPNPC ---
PATIENT NAME: ALESSANDRA LYNN : 1965 GENDER: FEMALE VISIT DATE: 12/22/2019 DISCHARGE DATE: 12/22/19 1603 VISIT LOCKED DATE TIME: PHYSICIAN: LIZ ORTIZ PHYSICIAN PAGER NO: [phone] RESOURCE: LIZ ORTIZ REASON FOR APPOINTMENT 1. [phone] HISTORY OF PRESENT ILLNESS HISTORY OF PRESENT ILLNESS: PAIN THE PATIENT DESCRIBES THE PAIN... PERMISSION REQUESTED AND RECEIVED FOR PATIENT TO PERFORM TELEHEALTH VISIT. 54-YEAR-OLD FEMALE IN FOR CHRONIC PAIN FOLLOW-UP. SHE RATES HER PAIN CURRENTLY AT A 3 OUT OF 10 AND DESCRIBES IT ACHING. SHE FEELS HER MEDICATIONS ARE WORKING WELL AND DENIES MED SIDE EFFECTS AT THIS TIME. FALL RISK SCREENING: SCREENING :NO FALLS REPORTED IN THE LAST YEAR CURRENT MEDICATIONS TAKING VITAMIN D (CHOLECALCIFEROL) 5000 TABLET 1 TAB ORALLY ONCE A DAY TAKING CALCIUM 600 + D 600-400 MG-UNIT TABLET 1 TABLET ORALLY BID TAKING MULTIVITAMINS OTC TABLET 1 TABLET ORALLY ONCE A DAY TAKING MILK THISTLE 1 CAPSULE 1 CAP(S) ORALLY BID TAKING VITAMIN B COMPLEX OTC TABLET 1 TABLET ORALLY ONCE A DAY TAKING FISH OIL 1000 MG CAPSULE 1 CAPSULE BY MOUTH ONCE A DAY TAKING FERROUS GLUCONATE 325 (36 FE) MG TABLET 1 TABLET ORALLY ONCE A DAY TAKING DICYCLOMINE HCL 10 MG CAPSULE 1 CAPSULES ORALLY THREE TIMES A DAY NEEDED FOR ABDOMINAL SPASM TAKING MIRALAX POWDER POWDER 17 GM ORALLY ONCE A DAY TAKING METAMUCIL 28.3 % POWDER DIRECTED ORALLY BEDTIME TAKING NARCAN 4 MG/0.1ML LIQUID DIRECTED NASALLY USE PRN RESPIRATORY SUPPRESSION OR OVERDOSE AND CALL 911 TAKING LIDOCAINE VISCOUS 2 % SOLUTION 15 ML TO AFFECTED AREA NEEDED MOUTH/THROAT EVERY 3 HRS TO WOUND AREAS FOR PAIN TAKING SERTRALINE HCL 100 MG TABLET 2 TABLETS ORALLY ONCE A DAY TAKING PANTOPRAZOLE SODIUM 40 MG TABLET DELAYED RELEASE 1 TABLET ORALLY EVERY MORNING TAKING HYDROXYZINE HCL 50 MG TABLET 2 TABLET ORALLY AT BEDTIME TAKING KLONOPIN 1 MG TABLET 1 TABLET ORALLY THREE TIMES A DAY NEEDED MDD3 TAKING MUPIROCIN 2 % OINTMENT 1 APPLICATION TO EFFECTED AREA ON ARM, SMALL AMOUNT EXTERNALLY THREE TIMES A DAY ALFONSO (ORDER FROM [facility]) TAKING MORPHINE SULFATE 30 MG TABLET 1 TABLET NEEDED ORALLY EVERY 4 HRS PRN PAIN MDD=6 NOT-TAKING CAMPHOR-MENTHOL _ OINTMENT APPLY TOPICALLY EXTERNALLY TWICE A DAY X 7 DAYS WITH FLARES C CLOBETASOL 0.05% OINTMENT MEDICATION LIST REVIEWED AND RECONCILED WITH THE PATIENT PAST MEDICAL HISTORY NEURODERMATITIS-AGREED UPON BY KEON AND DR. JACQUELINE SIMMONS DERM AT [facility] MDD, RECURRENT/CHETNA CERVICAL/LUMBAR DJD BORDERLINE PROLONGED QTC SYNDROME/HISTORY OF SYNCOPE NOT CORRELATED TO CARDIAC ARRHYTHMIA IMPAIRED FASTING GLUCOSE INSOMNIA/RESTLESS LEG SYNDROME GERD/DYSPEPSIA DYSMENORRHEA IBS CONSTIPATION TYPE MITRAL VALVE PROLAPSE/TRACE MR BY TTE NOVEMBER 2010-[facility]/ [facility] SPECT-LOW RISK- IRON-DEFICIENCY ANEMIA MUCOSAL PROLAPSE SYNDROME STATUS POST TEMS PROCEDURE LA GRADE B ESOPHAGITIS AND DENTATE LINE ACUTE GENERALIZED URTICARIA S ANGIODEMA-? HONEY DUARTE EXPOSURE02/2018 HO NICOTINE USE-1 PPD X 3Y, QUIT IN 1984 ALLERGIES NSAIDS: RINGING OF EARS - SIDE EFFECTS FISH OIL (CERTAIN BRANDS ONLY): SWELLING - SIDE EFFECTS SULFA: RASH,DIARRHEA - ALLERGY HONEY MANGOS: SWELLING, RASH, ITCH TAPE: RASH - ALLERGY SURGICAL HISTORY TEMS-[facility] AT [place] 07/2011 FELL DOING LAUNDRY, BROKE L FEMUR WITH ORIF 2000 FAMILY HISTORY FATHER: ALIVE, DIAGNOSED WITH HYPERTENSION MOTHER: ALIVE, HYPERTENSION 2 SISTER(S) - HEALTHY. 1 CAD/CVA/CANCERS IN 1DR. SOCIAL HISTORY GENERAL: TOBACCO USE ARE YOU A:FORMER SMOKER HOW LONG HAS IT BEEN SINCE YOU LAST SMOKED?> 10 YEARS HIV / HEP-C SCREENING HIV TEST OFFERED TO PATIENT:YES DATE OFFERED:05/11/2017 TEST ACCEPTED:NO HEP-C TEST OFFERED TO PATIENT:YES DATE OFFERED:05/11/2017 REASON:OTHER (DOCUMENT IN NOTE) PATIENT ALREADY TESTTED TEST ACCEPTED:NO REASON:OTHER (DOCUMENT IN NOTE) LREADY TESTED BROCHURE PROVIDED TO PATIENTYES LANGUAGE LANGUAGES SPOKEN:PANAMANIAN DOMESTIC VIOLENCE DO YOU FEEL SAFE IN YOUR ENVIRONMENT?YES NEW PATIENT PAIN DIARY PATIENT DESCRIBES PAIN :ACHING, HAVE IT ALL THE TIME FROM 0-10, WHAT LEVEL IS YOUR PAIN TODAY?3 PRECIPITATING FACTORS NOTHING ALLEVIATING FACTORS STRETCHING, ACTIVITY, MEDS IMPACT ON FUNCTION YES RECREATIONAL DRUG USE DRUG USE?NO EXERCISE: WALKS. LEARNING BARRIERS / SPECIAL NEEDS CHANGE FROM LAST VISIT?YES BARRIERS TO LEARNING?NO HEARING IMPAIRED?NO VISION IMPAIRED?YES COGNITIVELY IMPAIRED?NO :CORRECTIVE LENSES READING GLASSES READINESS TO LEARN?YES LEARNING PREFERENCES?NO LEARNING CAPABILITIES PRESENT?YES EMOTIONAL BARRIERS?NO SPECIAL DEVICES?NO PHYSICAL SECURITY ENGINEER NEEDED?NO PAIN CLINIC PFS, CLERGY, PUBLIC HEALTH REFERRALS PFS REFERRAL NEEDED?NO CLERGY REFERRAL NEEDED?NO PUBLIC HEALTH REFERRAL NEEDED?NO WAS THE PROVIDER NOTIFIED OF ANY PERTINENT INFO?YES HAS THE PATIENT BEEN EDUCATED REGARDING HIS/HER PLAN OF CARE?YES HAS THE PATIENT BEEN EDUCATED REGARDING PAIN, THE RISK FOR PAIN, THE IMPORTANCE OF EFFECTIVE PAIN MANAGEMENT, AND THE PAIN ASSESSMENT PROCESS?YES LATEX QUESTIONNAIRE LATEX ALLERGY : HAVE YOU EVER DEVELOPED ANY TYPE OF REACTION AFTER HANDLING LATEX PRODUCTS SUCH RUBBER GLOVES, CONDOMS, DIAPHRAGMS, BALLOONS, SOCKS, OR UNDERWEAR?NO LATEX ALLERGY : HAVE YOU EVER DEVELOPED ANY TYPE OF REACTION DURING OR AFTER DENTAL APPOINTMENT, VAGINAL/RECTAL EXAMINATION, SURGICAL PROCEDURE, OR ANY OTHER EXPOSURE?NO DATE ASKED : 06/25/2019 LATEX RISK : HAVE YOU EVER HAD ANY DIFFICULTY BREATHING OR HIVES AFTER EATING OR HANDLING ANY FRUITS, OR VEGETABLES; SUCH KIWI, BANANAS, STONE FRUITS, OR CHESTNUTSNO LATEX RISK : DO YOU HAVE A PREVIOUS PERSONAL HISTORY OF MORE THAN NINE SURGERIES, SPINA BIFIDA, OR REPEATED CATHERIZATIONS? NO LATEX RISK : ARE YOU FREQUENTLY EXPOSED TO LATEX PRODUCTS IN YOUR OCCUPATION?NO CAFFEINE CAFFEINE USE?YES HOW OFTEN AND HOW MUCH? ONE CUP OF COFFE IN THE MORNING ADVANCE DIRECTIVE ADVANCE DIRECTIVE DISCUSSED WITH PATIENT:YES HCP - CHELLE LYNN RESTORATIONIST RESTORATIONIST NO HINDU BELIEFS THAT WOULD IMPACT HEALTH CARE. MARITAL STATUS: . ALCOHOL SCREENING DID YOU HAVE A DRINK CONTAINING ALCOHOL IN THE PAST YEAR?YES HOW OFTEN DID YOU HAVE SIX OR MORE DRINKS ON ONE OCCASION IN THE PAST YEAR?NEVER (0 POINTS) HOW MANY DRINKS DID YOU HAVE ON A TYPICAL DAY WHEN YOU WERE DRINKING IN THE PAST YEAR?1 OR 2 (0 POINTS) HOW OFTEN DID YOU HAVE A DRINK CONTAINING ALCOHOL IN THE PAST YEAR?FOUR OR MORE TIMES A WEEK (4 POINTS) POINTS4 INTERPRETATIONPOSITIVE SEXUAL HX HAD SEX IN THE LAST 12 MONTHS (VAGINAL, ORAL, OR ANAL)?YES WITHMEN ONLY USE PROTECTION?NO HAVE YOU EVER HAD AN STD?NO REVIEWED WITH PATIENT 12/20/18 1422 JSREVIEWED WITH PATIENT 08/29/19 LAS. HOSPITALIZATION/MAJOR DIAGNOSTIC PROCEDURE FELL DOING LAUNDRY, BROKE L FEMUR WITH ORIF 2000 IRON DEFICIENCY ANEMIA 12/2016 IRON DEFICIENCY ANEMIA 06/07-06/08 RECEIVED BLOOD TRANSFUSION- DUE TO HEAD LACERATION 05/2019 REVIEW OF SYSTEMS REVIEWED BY: PROVIDER: KEITH BARRETT . CONSTITUTIONAL: ANY CHANGE IN YOUR MEDICAL CONDITION? NO . CHILLS NO . FEVER NO . INFECTION: DO YOU HAVE NEW INFECTIONS? NO . DO YOU HAVE HISTORY OF MRSA? NO . MUSCULOSKELETAL: ANY NEW PATTERNS OF PAIN OR NUMBNESS? YES, FINGERS AND ARMS ARE NUMB 2 YEARS, TOES ARE NUMB X 40 YEARS AND BACK NUMBNESS X30 YEARS . GASTROENTEROLOGY: ANY NEW CHANGE IN BOWEL CONTROL? NO . GENITOURINARY: ANY NEW CHANGE IN BLADDER CONTROL? NO . IS THERE A CHANCE YOU COULD BE ? NO . HEMATOLOGY/LYMPH: DO YOU TAKE ANY BLOOD THINNERS? (FOR EXAMPLE- COUMADIN, PLAVIX, AGGRENOX, PLATEL, PRADAXA, OR XARELTO) NO . WHEN WAS YOUR LAST DOSE? DATE: TIME: . NEUROLOGY: HAVE YOU FALLEN IN THE PAST 12 MONTHS? PT STATES SHE FALLS ALL THE TIME CLUMSY PT STATES . ANY NEW EXTREMITY NUMBNESS OR WEAKNESS? NO . CARDIOLOGY: DO YOU HAVE A PACEMAKER OR DEFIBRILLATOR? NO . RESPIRATORY: HAVE YOU BEEN SICK IN THE PAST WEEK? NO . FEVER NO . FLU LIKE SYMPTOMS? NO . COUGH NO . INTEGUMENTARY: DO YOU HAVE ANY RASHES OR OPEN SORES? YES, SCAR TISSUE AUTO IMMUNE DISEASE, TO FACE, HANDS, ARMS, RIGHT SIDE OF BODY AND NECK . ALLERGIC/IMMUNO: ARE YOU ALLERGIC TO IV DYE? NO . ANY NEW ALLERGIES? NO . PSYCHIATRIC: DO YOU HAVE THOUGHTS OF HURTING YOURSELF OR SOMEONE ELSE? NO . ARE YOU ABUSED, NEGLECTED, OR IN AN UNSAFE ENVIRONMENT? NO . ENDOCRINOLOGY: ARE YOU DIABETIC? NO . OTHER: DO YOU NEED ANY PRESCRIPTIONS? MORPHINE . IF YES, PLEASE LIST: ____ . ANY NEW PROBLEMS WITH YOUR MEDICATIONS? NO . WHEN DID YOU LAST EAT? ____ . WHEN DID YOU LAST DRINK? ____ . WHAT DID YOU LAST DRINK? ____ . NAME OF PERSON DRIVING YOU HOME? ____ . DO YOU HAVE ANY OTHER QUESTIONS OR CONCERNS NO . EXAMINATION GENERAL EXAMINATION: GENERALNO ACUTE DISTRESS, WELL NOURISHED AND HYDRATED. PSYCHAPPROPRIATE MOOD AND AFFECT , ORIENTED X 3. ASSESSMENTS LUMBAR DISC DISEASE WITH RADICULOPATHY - M51.16 (PRIMARY) TREATMENT LUMBAR DISC DISEASE WITH RADICULOPATHY REFILL MORPHINE SULFATE TABLET, 30 MG, 1 TABLET NEEDED, ORALLY, EVERY 4 HRS PRN PAIN MDD=6, 30 DAYS, 180, REFILLS 0 CLINICAL NOTES: 54-YEAR-OLD FEMALE IN FOR CHRONIC PAIN FOLLOW-UP. GIVEN PRESENTING SYMPTOMS RECOMMENDED CONTINUATION OF CURRENT MEDICATION REGIMEN WITH FOLLOW-UP IN 3 MONTHS. PATIENT HAS EXPRESSED UNDERSTANDING OF AND WAS IN AGREEMENT WITH TREATMENT PLAN. GIVEN TIME TO ASK QUESTIONS AND EXPRESS CONCERNS., ISTOP REGISTRY REVIEWED AND DEMONSTRATES COMPLLIANCE. (REF # [id number] ) BRINGS IN MEDICATIONS WHICH IS APPROPRIATE FOR WHAT WAS DISPENSED. RECENT URINE TOXICOLOGY REVIEWED. NO UNAUTHORIZED MEDICATIONS. NO ILLICIT SUBSTANCES AND PRESCRIBED MEDICATIONS WERE PRESENT. TELEHEALTH VISIT PERFORMED VIA ZOOM. TIME SPENT WITH PATIENT 6 MINUTES. DISPOSITION & COMMUNICATION FOLLOW UP 3 MONTHS (REASON: BACK PAIN) ELECTRONICALLY SIGNED BY ARIADNA DECKER ON 12/23/2019 AT 09:00 AM EDT DISCLAIMER : THIS IS A VISIT SUMMARY EXTRACTED FROM THE [employer] CHART. IT IS NOT A COPY OF THE [employer] PROGRESS NOTE. KENNETH
== END ==
LOC: M PAIN 13:15
PROVIDERS: ATTEND Family Medicine
DX: M51.16 Intervertebral disc disorders with radiculopathy, lumbar region (principal); G89.29 Other chronic pain; R73.01 Impaired fasting glucose; G47.00 Insomnia, unspecified; G25.81 Restless legs syndrome; K21.9 Gastro-esophageal reflux disease without esophagitis; D50.9 Iron deficiency anemia, unspecified; Z87.891 Personal history of nicotine dependence; Z88.2 Allergy status to sulfonamides; Z88.6 Allergy status to analgesic agent; Z91.018 Allergy to other foods; Z91.09 Other allergy status, other than to drugs and biological substances; Z79.899 Other long term (current) drug therapy

== ENCOUNTER → 2020-05-31 | Outpatient (CLI) | payer OTHER | LOC: M PAIN 14:07 | PROVIDERS: ATTEND Family Medicine | DX: M51.16 Intervertebral disc disorders with radiculopathy, lumbar region (principal); Z88.2 Allergy status to sulfonamides; Z88.5 Allergy status to narcotic agent; Z88.6 Allergy status to analgesic agent; Z88.8 Allergy status to other drugs, medicaments and biological substances; Z79.899 Other long term (current) drug therapy ==

== ENCOUNTER → 2020-08-24 | Outpatient (CLI) | payer OTHER ==
--- NOTE | 2020-08-26 03:58 | ECWPNPC ---
PATIENT NAME: ALESSANDRA LYNN : 1965 GENDER: FEMALE VISIT DATE: 08/24/2020 DISCHARGE DATE: 08/24/20 1531 VISIT LOCKED DATE TIME: PHYSICIAN: LIZ ORTIZ PHYSICIAN PAGER NO: ACTIVE RESOURCE: LIZ ORTIZ REASON FOR APPOINTMENT 1. 3 MONTH F/U HISTORY OF PRESENT ILLNESS GENERAL: 44-YEAR-OLD FEMALE IN FOR CHRONIC PAIN FOLLOW-UP. SHE FEELS HER MEDICATIONS ARE WORKING WELL AND DENIES MED SIDE EFFECTS AT THIS TIME. SHE RATES HER PAIN CURRENTLY AT A 5/10 AND DESCRIBES IT ACHING, CONTINOUS, THROBBING AND SORE. FALL RISK SCREENING: SCREENING :TWO OR MORE FALLS WITHOUT INJURY IN THE PAST YEAR PAIN SCREENING: PATIENT HAS A COMPLAINT OF ACUTE OR CHRONIC PAIN :YES LOCATION OF PAIN:HEAD, NECK, LOW BACK, LEG(S) INTENSITY OF PAIN (SCALE OF 1 TO 10):5 WHAT DOES YOUR PAIN FEEL LIKE:ACHING, CONTINOUS, TENDER, THROBBING, SORE DURATION:CONTINOUS, CONSTANT PAIN IS INCREASED BY:OTHERS DRIVING PAIN IS DECREASED BY:USE OF PAIN MEDICATIONS, OTHERS HEATING PAD TREATMENT/MEDICATIONS USED TO MANAGE PAIN:OPIOIDS LEVEL OF RELIEF FROM PAIN TREATMENTS IN THE PAST:50% PAIN HAS INTERFERED WITH THE FOLLOWING:BATHING/DRESSING, WALKING ABILITY, HOUSEWORK, SLEEP, TRANSPORTATION, TOILETING NURSING NOTE: -. PAIN CENTER INTAKE QUESTIONS: DO YOU HAVE A HISTORY OF MRSA? :NO DO YOU TAKE A BLOOD THINNERS? :NO DO YOU HAVE ANY BLEEDING DISORDERS? :NO ANY NEW NUMBNESS OR WEAKNESS IN YOUR LEGS OR ARMS? :NO ANY PACEMAKER,DEFIBRILLATOR, OR DORSAL COLUMN STIMULATOR? :NO DO YOU HAVE ANY RASHES OR OPEN SORES? :NO ARE YOU ALLERGIC TO IV DYE? :NO ARE YOU DIABETIC? :NO ANY NEW PROBLEMS WITH YOUR MEDICATIONS? :NO HAVE YOU RECEIVED A VACCINE IN THE PAST 30 DAYS? :NO DO YOU PLAN TO RECEIVE A VACCINE IN THE NEXT 21 DAYS? :NO DO YOU NEED ANY PRESCRIPTION? :YES MORPHINE DO YOU TAKE ANY IMMUNOSUPPRESSIVE MEDICATIONS? :NO IS THERE A CHANCE YOU COULD BE ? :NO ARE YOU BREAST FEEDING? :NO CURRENT MEDICATIONS TAKING VITAMIN D (CHOLECALCIFEROL) 5000 TABLET 1 TAB ORALLY ONCE A DAY TAKING CALCIUM 600 + D 600-400 MG-UNIT TABLET 1 TABLET ORALLY BID TAKING MULTIVITAMINS OTC TABLET 1 TABLET ORALLY ONCE A DAY TAKING MILK THISTLE 1 CAPSULE 1 CAP(S) ORALLY BID TAKING VITAMIN B COMPLEX OTC TABLET 1 TABLET ORALLY ONCE A DAY TAKING FISH OIL 1000 MG CAPSULE 1 CAPSULE BY MOUTH ONCE A DAY TAKING FERROUS GLUCONATE 325 (36 FE) MG TABLET 1 TABLET ORALLY ONCE A DAY TAKING DICYCLOMINE HCL 10 MG CAPSULE 1 CAPSULES ORALLY THREE TIMES A DAY NEEDED FOR ABDOMINAL SPASM TAKING MIRALAX POWDER POWDER 17 GM ORALLY ONCE A DAY TAKING METAMUCIL 28.3 % POWDER DIRECTED ORALLY BEDTIME TAKING NARCAN 4 MG/0.1ML LIQUID DIRECTED NASALLY USE PRN RESPIRATORY SUPPRESSION OR OVERDOSE AND CALL 911 TAKING LIDOCAINE VISCOUS 2 % SOLUTION 15 ML TO AFFECTED AREA NEEDED MOUTH/THROAT EVERY 3 HRS TO WOUND AREAS FOR PAIN TAKING HYDROXYZINE HCL 50 MG TABLET 2 TABLET ORALLY AT BEDTIME TAKING MUPIROCIN 2 % OINTMENT 1 APPLICATION TO EFFECTED AREA ON ARM, SMALL AMOUNT EXTERNALLY THREE TIMES A DAY ALFONSO (ORDER FROM [employer]) TAKING PANTOPRAZOLE SODIUM 40 MG TABLET DELAYED RELEASE 1 TABLET ORALLY BID TAKING SERTRALINE HCL 100 MG TABLET 2 TABLETS ORALLY ONCE A DAY TAKING KLONOPIN 1 MG TABLET 1 TABLET ORALLY, CODE A THREE TIMES A DAY NEEDED MDD3 TAKING MORPHINE SULFATE 30 MG TABLET 1 TABLET NEEDED ORALLY EVERY 4 HRS PRN PAIN MDD=6 TAKING AMITIZA 8 MCG CAPSULE 1 CAPSULE WITH FOOD AND WATER ORALLY TWICE A DAY PRN NOT-TAKING CAMPHOR-MENTHOL _ OINTMENT APPLY TOPICALLY EXTERNALLY TWICE A DAY X 7 DAYS WITH FLARES C CLOBETASOL 0.05% OINTMENT MEDICATION LIST REVIEWED AND RECONCILED WITH THE PATIENT PAST MEDICAL HISTORY NEURODERMATITIS-AGREED UPON BY KEON AND DR. JACQUELINE SIMMONS DERM AT [facility] MDD, RECURRENT/CHETNA CERVICAL/LUMBAR DJD BORDERLINE PROLONGED QTC SYNDROME/HISTORY OF SYNCOPE NOT CORRELATED TO CARDIAC ARRHYTHMIA IMPAIRED FASTING GLUCOSE INSOMNIA/RESTLESS LEG SYNDROME GERD/DYSPEPSIA DYSMENORRHEA IBS CONSTIPATION TYPE MITRAL VALVE PROLAPSE/TRACE MR BY TTE NOVEMBER 2010-[facility]/ [facility] SPECT-LOW RISK-[facility] IRON-DEFICIENCY ANEMIA MUCOSAL PROLAPSE SYNDROME STATUS POST TEMS PROCEDURE LA GRADE B ESOPHAGITIS AND DENTATE LINE ACUTE GENERALIZED URTICARIA S ANGIODEMA-? HONEY DUARTE EXPOSURE02/2018 HO NICOTINE USE-1 PPD X 3Y, QUIT IN 1984 ALLERGIES NSAIDS: RINGING OF EARS - SIDE EFFECTS FISH OIL (CERTAIN BRANDS ONLY): SWELLING - SIDE EFFECTS SULFA: RASH,DIARRHEA - ALLERGY HONEY MANGOS: SWELLING, RASH, ITCH TAPE: RASH - ALLERGY SURGICAL HISTORY [facility] AT [place] 07/2011 FELL DOING LAUNDRY, BROKE L FEMUR WITH ORIF 2000 FAMILY HISTORY FATHER: ALIVE, DIAGNOSED WITH HYPERTENSION MOTHER: ALIVE, HYPERTENSION 2 SISTER(S) - HEALTHY. 1 CAD/CVA/CANCERS IN 1DR. SOCIAL HISTORY GENERAL: TOBACCO USE ARE YOU A:FORMER SMOKER HOW LONG HAS IT BEEN SINCE YOU LAST SMOKED?> 10 YEARS LATEX QUESTIONNAIRE LATEX ALLERGY : HAVE YOU EVER DEVELOPED ANY TYPE OF REACTION AFTER HANDLING LATEX PRODUCTS SUCH RUBBER GLOVES, CONDOMS, DIAPHRAGMS, BALLOONS, SOCKS, OR UNDERWEAR?NO LATEX ALLERGY : HAVE YOU EVER DEVELOPED ANY TYPE OF REACTION DURING OR AFTER DENTAL APPOINTMENT, VAGINAL/RECTAL EXAMINATION, SURGICAL PROCEDURE, OR ANY OTHER EXPOSURE?NO DATE ASKED : 06/25/2019 LATEX RISK : HAVE YOU EVER HAD ANY DIFFICULTY BREATHING OR HIVES AFTER EATING OR HANDLING ANY FRUITS, OR VEGETABLES; SUCH KIWI, BANANAS, STONE FRUITS, OR CHESTNUTSNO LATEX RISK : DO YOU HAVE A PREVIOUS PERSONAL HISTORY OF MORE THAN NINE SURGERIES, SPINA BIFIDA, OR REPEATED CATHERIZATIONS? NO LATEX RISK : ARE YOU FREQUENTLY EXPOSED TO LATEX PRODUCTS IN YOUR OCCUPATION?NO ALCOHOL SCREENING DID YOU HAVE A DRINK CONTAINING ALCOHOL IN THE PAST YEAR?YES HOW OFTEN DID YOU HAVE SIX OR MORE DRINKS ON ONE OCCASION IN THE PAST YEAR?NEVER (0 POINTS) HOW MANY DRINKS DID YOU HAVE ON A TYPICAL DAY WHEN YOU WERE DRINKING IN THE PAST YEAR?1 OR 2 (0 POINTS) HOW OFTEN DID YOU HAVE A DRINK CONTAINING ALCOHOL IN THE PAST YEAR?FOUR OR MORE TIMES A WEEK (4 POINTS) POINTS4 INTERPRETATIONPOSITIVE RECREATIONAL DRUG USE DRUG USE?NO CAFFEINE CAFFEINE USE?YES HOW OFTEN AND HOW MUCH? ONE CUP OF COFFE IN THE MORNING SEXUAL HX HAD SEX IN THE LAST 12 MONTHS (VAGINAL, ORAL, OR ANAL)?YES WITHMEN ONLY USE PROTECTION?NO HAVE YOU EVER HAD AN STD?NO HIV / HEP-C SCREENING HIV TEST OFFERED TO PATIENT:YES DATE OFFERED:05/11/2017 TEST ACCEPTED:NO HEP-C TEST OFFERED TO PATIENT:YES DATE OFFERED:05/11/2017 REASON:OTHER (DOCUMENT IN NOTE) PATIENT ALREADY TESTTED TEST ACCEPTED:NO REASON:OTHER (DOCUMENT IN NOTE) LREADY TESTED BROCHURE PROVIDED TO PATIENTYES SABIANIST SABIANIST NO [employer] BELIEFS THAT WOULD IMPACT HEALTH CARE. LANGUAGE LANGUAGES SPOKEN:UGANDAN LEARNING BARRIERS / SPECIAL NEEDS CHANGE FROM LAST VISIT?YES BARRIERS TO LEARNING?NO HEARING IMPAIRED?NO VISION IMPAIRED?YES COGNITIVELY IMPAIRED?NO :CORRECTIVE LENSES READING GLASSES READINESS TO LEARN?YES LEARNING PREFERENCES?NO LEARNING CAPABILITIES PRESENT?YES EMOTIONAL BARRIERS?NO SPECIAL DEVICES?NO FABRIC AND ACCESSORIES ESTIMATOR NEEDED?NO DOMESTIC VIOLENCE DO YOU FEEL SAFE IN YOUR ENVIRONMENT?YES EXERCISE: WALKS. MARITAL STATUS: . PATIENT DESCRIBES PAIN :ACHING, HAVE IT ALL THE TIME FROM 0-10, WHAT LEVEL IS YOUR PAIN TODAY?3 PRECIPITATING FACTORS NOTHING ALLEVIATING FACTORS STRETCHING, ACTIVITY, MEDS IMPACT ON FUNCTION YES PAIN CLINIC PFS, CLERGY, PUBLIC HEALTH REFERRALS PFS REFERRAL NEEDED?NO CLERGY REFERRAL NEEDED?NO PUBLIC HEALTH REFERRAL NEEDED?NO WAS THE PROVIDER NOTIFIED OF ANY PERTINENT INFO?YES HAS THE PATIENT BEEN EDUCATED REGARDING HIS/HER PLAN OF CARE?YES HAS THE PATIENT BEEN EDUCATED REGARDING PAIN, THE RISK FOR PAIN, THE IMPORTANCE OF EFFECTIVE PAIN MANAGEMENT, AND THE PAIN ASSESSMENT PROCESS?YES ADVANCE DIRECTIVE ADVANCE DIRECTIVE DISCUSSED WITH PATIENT:YES HCP - CHELLE LYNN REVIEWED WITH PATIENT 12/20/18 1422 JSREVIEWED WITH PATIENT 08/29/19 LAS. HOSPITALIZATION/MAJOR DIAGNOSTIC PROCEDURE FELL DOING LAUNDRY, BROKE L FEMUR WITH ORIF 2000 IRON DEFICIENCY ANEMIA 12/2016 IRON DEFICIENCY ANEMIA 06/07-06/08 RECEIVED BLOOD TRANSFUSION- DUE TO HEAD LACERATION 05/2019 REVIEW OF SYSTEMS CONSTITUTIONAL: ANY RECENT FEVER NO . CHILLS NO . WEIGHT CHANGE OF UNKNOWN REASONS NO . GASTROENTEROLOGY: NEW UNEXPLAINABLE CHANGES IN BOWEL CONTROL NO . CONSTIPATION NO . GENITOURINARY: ANY NEW CHANGE IN BLADDER CONTROL? NO . NEUROLOGY: NEW ONSET DIZZINESS OR NEUROLOGICAL CHANGES NOT MENTIONED NO . NEW NUMBNESS OR PAIN PATTERNS NOT MENTIONED AND PERTINENT TO TODAY'S VISIT NO . CARDIOLOGY: NEW CHEST PRESSURE NO . NEW CHEST PAIN NO . RESPIRATORY: UNEXPLAINABLE COUGH NO . NEW SHORTNESS OF BREATH NO . VITAL SIGNS WT 175.6 LBS, HT 65 IN, BMI 29.22 INDEX, BP 146/68 MM HG, HR 56 /MIN, RR 18 /MIN, TEMP 97.4 F, OXYGEN SAT % 99%, SAFE IN ENV? (Y/N) Y, NA INITIALS AW 1506, REVIEWED BY: EM. EXAMINATION GENERAL EXAMINATION: GENERALNO ACUTE DISTRESS, WELL NOURISHED AND HYDRATED. PSYCHAPPROPRIATE MOOD AND AFFECT . LUNGS:CLEAR TO AUSCULTATION BILATERALLY, NO WHEEZES, RHONCHI, RALES. HEART:NO MURMURS, REGULAR RATE AND RHYTHM. ASSESSMENTS LUMBAR DISC DISEASE WITH RADICULOPATHY - M51.16 (PRIMARY) TREATMENT LUMBAR DISC DISEASE WITH RADICULOPATHY REFILL MORPHINE SULFATE TABLET, 30 MG, 1 TABLET NEEDED, ORALLY, EVERY 4 HRS PRN PAIN MDD=6, 30 DAYS, 180, REFILLS 0 NOTES: 54-YEAR-OLD FEMALE IN FOR CHRONIC PAIN FOLLOW-UP. GIVEN PRESENTING SYMPTOMS RECOMMENDED CONTINUATION CURRENT MEDICATION REGIMEN WITH FOLLOW-UP IN 3 MONTHS. PATIENT HAS EXPRESSED UNDERSTANDING OF AND WAS IN AGREEMENT WITH TREATMENT PLAN. GIVEN TIME TO ASK QUESTIONS AND EXPRESS CONCERNS. , ISTOP REGISTRY REVIEWED AND DEMONSTRATES COMPLLIANCE. (REF #[id number] ) BRINGS IN MEDICATIONS WHICH IS APPROPRIATE FOR WHAT WAS DISPENSED. RECENT URINE TOXICOLOGY REVIEWED. NO UNAUTHORIZED MEDICATIONS. NO ILLICIT SUBSTANCES AND PRESCRIBED MEDICATIONS WERE PRESENT. DISPOSITION & COMMUNICATION FOLLOW UP 3 MONTHS (REASON: BACK PAIN) ELECTRONICALLY SIGNED BY ARIADNA DECKER ON 08/25/2020 AT 09:13 AM EST DISCLAIMER : THIS IS A VISIT SUMMARY EXTRACTED FROM THE [employer] CHART. IT IS NOT A COPY OF THE [employer] PROGRESS NOTE. KENNETH
== END ==
LOC: M PAIN 14:45
PROVIDERS: ATTEND Family Medicine
DX: G89.29 Other chronic pain (principal); M51.16 Intervertebral disc disorders with radiculopathy, lumbar region; F32.9 Major depressive disorder, single episode, unspecified; F41.1 Generalized anxiety disorder; G47.00 Insomnia, unspecified; G25.81 Restless legs syndrome; K58.1 Irritable bowel syndrome with constipation; D50.9 Iron deficiency anemia, unspecified; Z87.891 Personal history of nicotine dependence; Z79.891 Long term (current) use of opiate analgesic; Z79.899 Other long term (current) drug therapy; Z88.2 Allergy status to sulfonamides; Z88.6 Allergy status to analgesic agent; Z91.018 Allergy to other foods; Z91.048 Other nonmedicinal substance allergy status

== ENCOUNTER → 2020-12-06 | Outpatient (CLI) | payer OTHER ==
--- NOTE | 2020-12-08 00:07 | ECWPNPC ---
PATIENT NAME: ALESSANDRA LYNN : 1965 GENDER: FEMALE VISIT DATE: 12/06/2020 DISCHARGE DATE: 12/06/20 1534 VISIT LOCKED DATE TIME: PHYSICIAN: LIZ ORTIZ PHYSICIAN PAGER NO: ACTIVE RESOURCE: LIZ ORTIZ REASON FOR APPOINTMENT 1. BACK PAIN HISTORY OF PRESENT ILLNESS DEPRESSION SCREENING: PHQ-2 (2015 EDITION) LITTLE INTEREST OR PLEASURE IN DOING THINGS?NOT AT ALL FEELING DOWN, DEPRESSED, OR HOPELESS?NOT AT ALL TOTAL SCORE0 GENERAL: 55-YEAR-OLD FEMALE IN FOR CHRONIC PAIN FOLLOW-UP. SHE FEELS HER MEDICATIONS ARE HELPFUL AND DENIES MED SIDE EFFECTS AT THIS TIME. PATIENT DOES ADMIT TO SOME WORD SEARCHING AT TIMES. FALL RISK SCREENING: SCREENING MULTIPLE FALLS REPORTED IN THE LAST YEAR WITHOUT INJURY. PAIN SCREENING: PATIENT HAS A COMPLAINT OF ACUTE OR CHRONIC PAIN :YES LOCATION OF PAIN:NECK, UPPER BACK, MID BACK, LOW BACK INTENSITY OF PAIN (SCALE OF 1 TO 10):6 WHAT DOES YOUR PAIN FEEL LIKE:ACHING, CONTINOUS, TENDER, SORE, OTHER NUMBNESS DURATION:CONTINOUS, CONSTANT, AWAKENS FROM SLEEP PAIN IS INCREASED BY:ACTIVITIES PAIN IS DECREASED BY:USE OF PAIN MEDICATIONS, SITTING, OTHERS WALKING, HEATING PAD NURSING NOTE: -. PAIN CENTER INTAKE QUESTIONS: DO YOU HAVE A HISTORY OF MRSA? :NO DO YOU TAKE A BLOOD THINNERS? :NO DO YOU HAVE ANY BLEEDING DISORDERS? :NO ANY NEW NUMBNESS OR WEAKNESS IN YOUR LEGS OR ARMS? :NO ANY PACEMAKER,DEFIBRILLATOR, OR DORSAL COLUMN STIMULATOR? :NO DO YOU HAVE ANY RASHES OR OPEN SORES? :YES GENERALIZED ARE YOU ALLERGIC TO IV DYE? :NO ARE YOU DIABETIC? :NO ANY NEW PROBLEMS WITH YOUR MEDICATIONS? :NO HAVE YOU RECEIVED A VACCINE IN THE PAST 30 DAYS? :YES IF SO WHAT VACCINE AND WHEN? FIRST COVID VACCINATION 12/02/2020 DO YOU PLAN TO RECEIVE A VACCINE IN THE NEXT 21 DAYS? :YES IF SO WHAT VACCINE AND WHEN? SECOND COVID VACCINATION 12/30/2020 DO YOU NEED ANY PRESCRIPTION? :YES MORPHINE DO YOU TAKE ANY IMMUNOSUPPRESSIVE MEDICATIONS? :NO DO YOU HAVE ANY KIDNEY OR LIVER DISEASE? :NO IS THERE A CHANCE YOU COULD BE ? :NO ARE YOU BREAST FEEDING? :NO CURRENT MEDICATIONS TAKING VITAMIN D (CHOLECALCIFEROL) 5000 TABLET 1 TAB ORALLY ONCE A DAY TAKING CALCIUM 600 + D 600-400 MG-UNIT TABLET 1 TABLET ORALLY BID TAKING MULTIVITAMINS OTC TABLET 1 TABLET ORALLY ONCE A DAY TAKING MILK THISTLE 1 CAPSULE 1 CAP(S) ORALLY BID TAKING VITAMIN B COMPLEX OTC TABLET 1 TABLET ORALLY ONCE A DAY TAKING FISH OIL 1000 MG CAPSULE 1 CAPSULE BY MOUTH ONCE A DAY TAKING FERROUS GLUCONATE 325 (36 FE) MG TABLET 1 TABLET ORALLY ONCE A DAY TAKING DICYCLOMINE HCL 10 MG CAPSULE 1 CAPSULES ORALLY THREE TIMES A DAY NEEDED FOR ABDOMINAL SPASM TAKING MIRALAX POWDER POWDER 17 GM ORALLY ONCE A DAY TAKING METAMUCIL 28.3 % POWDER DIRECTED ORALLY BEDTIME TAKING NARCAN 4 MG/0.1ML LIQUID DIRECTED NASALLY USE PRN RESPIRATORY SUPPRESSION OR OVERDOSE AND CALL 911 TAKING LIDOCAINE VISCOUS 2 % SOLUTION 15 ML TO AFFECTED AREA NEEDED MOUTH/THROAT EVERY 3 HRS TO WOUND AREAS FOR PAIN TAKING MUPIROCIN 2 % OINTMENT 1 APPLICATION TO EFFECTED AREA ON ARM, SMALL AMOUNT EXTERNALLY THREE TIMES A DAY ALFONSO (ORDER FROM [employer] MANUFACTUER) TAKING AMITIZA 8 MCG CAPSULE 1 CAPSULE WITH FOOD AND WATER ORALLY TWICE A DAY PRN TAKING SERTRALINE HCL 100 MG TABLET 2 TABLETS ORALLY ONCE A DAY TAKING PANTOPRAZOLE SODIUM 40 MG TABLET DELAYED RELEASE 1 TABLET ORALLY BID TAKING HYDROXYZINE HCL 50 MG TABLET 2 TABLET ORALLY AT BEDTIME TAKING MORPHINE SULFATE 30 MG TABLET 1 TABLET NEEDED ORALLY EVERY 4 HRS PRN PAIN MDD=6 TAKING KLONOPIN 1 MG TABLET 1 TABLET ORALLY, CODE A THREE TIMES A DAY NEEDED MDD3 UNKNOWN CAMPHOR-MENTHOL _ OINTMENT APPLY TOPICALLY EXTERNALLY TWICE A DAY X 7 DAYS WITH FLARES C CLOBETASOL 0.05% OINTMENT MEDICATION LIST REVIEWED AND RECONCILED WITH THE PATIENT PAST MEDICAL HISTORY NEURODERMATITIS-AGREED UPON BY KEON AND DR. JACQUELINE SIMMONS DERM AT [facility] MDD, RECURRENT/CHETNA CERVICAL/LUMBAR DJD BORDERLINE PROLONGED QTC SYNDROME/HISTORY OF SYNCOPE NOT CORRELATED TO CARDIAC ARRHYTHMIA IMPAIRED FASTING GLUCOSE INSOMNIA/RESTLESS LEG SYNDROME GERD/DYSPEPSIA DYSMENORRHEA IBS CONSTIPATION TYPE MITRAL VALVE PROLAPSE/TRACE MR BY TTE NOVEMBER 2010-WAN [facility]LL SPECT-LOW RISK-WAN IRON-DEFICIENCY ANEMIA MUCOSAL PROLAPSE SYNDROME STATUS POST TEMS PROCEDURE LA GRADE B ESOPHAGITIS AND DENTATE LINE ACUTE GENERALIZED URTICARIA S ANGIODEMA-? HONEY DUARTE EXPOSURE02/2018 HO NICOTINE USE-1 PPD X 3Y, QUIT IN 1985 ALLERGIES NSAIDS: RINGING OF EARS - SIDE EFFECTS FISH OIL (CERTAIN BRANDS ONLY): SWELLING - SIDE EFFECTS SULFA: RASH,DIARRHEA - ALLERGY HONEY MANGOS: SWELLING, RASH, ITCH TAPE: RASH - ALLERGY SOCIAL HISTORY GENERAL: TOBACCO USE ARE YOU A:FORMER SMOKER HOW LONG HAS IT BEEN SINCE YOU LAST SMOKED?> 10 YEARS LATEX QUESTIONNAIRE LATEX ALLERGY : HAVE YOU EVER DEVELOPED ANY TYPE OF REACTION AFTER HANDLING LATEX PRODUCTS SUCH RUBBER GLOVES, CONDOMS, DIAPHRAGMS, BALLOONS, SOCKS, OR UNDERWEAR?NO LATEX ALLERGY : HAVE YOU EVER DEVELOPED ANY TYPE OF REACTION DURING OR AFTER DENTAL APPOINTMENT, VAGINAL/RECTAL EXAMINATION, SURGICAL PROCEDURE, OR ANY OTHER EXPOSURE?NO LATEX RISK : HAVE YOU EVER HAD ANY DIFFICULTY BREATHING OR HIVES AFTER EATING OR HANDLING ANY FRUITS, OR VEGETABLES; SUCH KIWI, BANANAS, STONE FRUITS, OR CHESTNUTSNO LATEX RISK : DO YOU HAVE A PREVIOUS PERSONAL HISTORY OF MORE THAN NINE SURGERIES, SPINA BIFIDA, OR REPEATED CATHERIZATIONS? NO LATEX RISK : ARE YOU FREQUENTLY EXPOSED TO LATEX PRODUCTS IN YOUR OCCUPATION?NO DATE ASKED : 12/06/2020 ALCOHOL USE: DAILY 1-2. ALCOHOL SCREENING DID YOU HAVE A DRINK CONTAINING ALCOHOL IN THE PAST YEAR?YES HOW OFTEN DID YOU HAVE SIX OR MORE DRINKS ON ONE OCCASION IN THE PAST YEAR?NEVER (0 POINTS) HOW MANY DRINKS DID YOU HAVE ON A TYPICAL DAY WHEN YOU WERE DRINKING IN THE PAST YEAR?1 OR 2 (0 POINTS) HOW OFTEN DID YOU HAVE A DRINK CONTAINING ALCOHOL IN THE PAST YEAR?FOUR OR MORE TIMES A WEEK (4 POINTS) POINTS4 INTERPRETATIONPOSITIVE RECREATIONAL DRUG USE DRUG USE?NO CAFFEINE CAFFEINE USE?YES HOW OFTEN AND HOW MUCH? ONE CUP OF COFFE IN THE MORNING SEXUAL HX HAD SEX IN THE LAST 12 MONTHS (VAGINAL, ORAL, OR ANAL)?YES WITHMEN ONLY USE PROTECTION?NO HAVE YOU EVER HAD AN STD?NO HIV / HEP-C SCREENING HIV TEST OFFERED TO PATIENT:YES DATE OFFERED:05/11/2017 TEST ACCEPTED:NO HEP-C TEST OFFERED TO PATIENT:YES DATE OFFERED:05/11/2017 REASON:OTHER (DOCUMENT IN NOTE) PATIENT ALREADY TESTTED TEST ACCEPTED:NO REASON:OTHER (DOCUMENT IN NOTE) LREADY TESTED BROCHURE PROVIDED TO PATIENTYES BAPTISM BAPTISM NO SIKHISM BELIEFS THAT WOULD IMPACT HEALTH CARE. LANGUAGE LANGUAGES SPOKEN:KOREAN LEARNING BARRIERS / SPECIAL NEEDS CHANGE FROM LAST VISIT?YES BARRIERS TO LEARNING?NO HEARING IMPAIRED?NO VISION IMPAIRED?YES :CORRECTIVE LENSES READING GLASSES COGNITIVELY IMPAIRED?NO READINESS TO LEARN?YES LEARNING PREFERENCES?NO LEARNING CAPABILITIES PRESENT?YES EMOTIONAL BARRIERS?NO SPECIAL DEVICES?NO HEADING UP MACHINE OPERATOR NEEDED?NO DOMESTIC VIOLENCE DO YOU FEEL SAFE IN YOUR ENVIRONMENT?YES EXERCISE: WALKS. MARITAL STATUS: . PATIENT DESCRIBES PAIN :ACHING, HAVE IT ALL THE TIME FROM 0-10, WHAT LEVEL IS YOUR PAIN TODAY?3 PRECIPITATING FACTORS NOTHING ALLEVIATING FACTORS STRETCHING, ACTIVITY, MEDS IMPACT ON FUNCTION YES - PFS REFERRAL NEEDED?NO CLERGY REFERRAL NEEDED?NO PUBLIC HEALTH REFERRAL NEEDED?NO WAS THE PROVIDER NOTIFIED OF ANY PERTINENT INFO?YES HAS THE PATIENT BEEN EDUCATED REGARDING HIS/HER PLAN OF CARE?YES HAS THE PATIENT BEEN EDUCATED REGARDING PAIN, THE RISK FOR PAIN, THE IMPORTANCE OF EFFECTIVE PAIN MANAGEMENT, AND THE PAIN ASSESSMENT PROCESS?YES ADVANCE DIRECTIVE ADVANCE DIRECTIVE DISCUSSED WITH PATIENT:YES HCP - CHELLE LYNN REVIEWED WITH PATIENT 12/20/18 1422 JSREVIEWED WITH PATIENT 08/29/19 LAS. REVIEW OF SYSTEMS CONSTITUTIONAL: ANY RECENT FEVER NO . CHILLS NO . WEIGHT CHANGE OF UNKNOWN REASONS NO . GASTROENTEROLOGY: NEW UNEXPLAINABLE CHANGES IN BOWEL CONTROL NO . CONSTIPATION NO . GENITOURINARY: ANY NEW CHANGE IN BLADDER CONTROL? NO . NEUROLOGY: NEW ONSET DIZZINESS OR NEUROLOGICAL CHANGES NOT MENTIONED NO . NEW NUMBNESS OR PAIN PATTERNS NOT MENTIONED AND PERTINENT TO TODAY'S VISIT NO . CARDIOLOGY: NEW CHEST PRESSURE NO . PATIENT DENIES NO . RESPIRATORY: UNEXPLAINABLE COUGH NO . NEW SHORTNESS OF BREATH NO . VITAL SIGNS WT 182.8 LBS, HT 65 IN, BMI 30.42 INDEX, BP 170/75 MM HG, REPEAT BP 132/78 MANUAL BP LEFT ARM, HR 64 /MIN, RR 20 /MIN, TEMP 98.0 F, OXYGEN SAT % 96%, SAFE IN ENV? (Y/N) YES, NA INITIALS IN 14:58, REVIEWED BY: [id number] MANUAL BP. BALA KUMAR MA. EXAMINATION GENERAL EXAMINATION: GENERALNO ACUTE DISTRESS, WELL NOURISHED AND HYDRATED. PSYCHAPPROPRIATE MOOD AND AFFECT . LUNGS:CLEAR TO AUSCULTATION BILATERALLY, NO WHEEZES, RHONCHI, RALES. HEART:NO MURMURS, REGULAR RATE AND RHYTHM. ASSESSMENTS LUMBAR DISC DISEASE WITH RADICULOPATHY - M51.16 (PRIMARY) CHRONIC PRESCRIPTION OPIATE USE - Z79.899 TREATMENT LUMBAR DISC DISEASE WITH RADICULOPATHY REFILL MORPHINE SULFATE TABLET, 30 MG, 1 TABLET NEEDED, ORALLY, EVERY 4 HRS PRN PAIN MDD=6, 30 DAYS, 180, REFILLS 0 LAB: URINE TEST GROUP BALA KUMAR 12/06/2020 3:27:29 PM > LAST DOSE: MORPHINE 12/06/2020, CLONAZEPAN 12/05/2020 NOTES: 55-YEAR-OLD FEMALE IN FOR CHRONIC PAIN FOLLOW-UP. GIVEN PRESENTING SYMPTOMS RECOMMEND CONTINUATION OF CURRENT MEDICATION REGIMEN WITH FOLLOW-UP IN 3 MONTHS. GIVEN PATIENT'S SYMPTOMS OF WORD SEARCHING SHE WAS ENCOURAGED TO DISCUSS THIS WITH HER PCP AND POTENTIALLY GET A REFERRAL FOR NEUROLOGY CONSULT. PATIENT HAS EXPRESSED UNDERSTANDING OF AND WAS IN AGREEMENT WITH TREATMENT PLAN. GIVEN TIME TO ASK QUESTIONS AND EXPRESS CONCERNS. , ISTOP REGISTRY REVIEWED AND DEMONSTRATES COMPLLIANCE. (REF # [id number] ) BRINGS IN MEDICATIONS WHICH IS APPROPRIATE FOR WHAT WAS DISPENSED. RECENT URINE TOXICOLOGY REVIEWED. NO UNAUTHORIZED MEDICATIONS. NO ILLICIT SUBSTANCES AND PRESCRIBED MEDICATIONS WERE PRESENT. PROCEDURE CODES FA211 ESTABILISHED PATIENT [facility] CHARGE DISPOSITION & COMMUNICATION FOLLOW UP 3 MONTHS (REASON: BACK PAIN) ELECTRONICALLY SIGNED BY ARIADNA DECKER ON 12/07/2020 AT 10:09 AM EDT DISCLAIMER : THIS IS A VISIT SUMMARY EXTRACTED FROM THE [employer] CHART. IT IS NOT A COPY OF THE [employer] PROGRESS NOTE. KENNETH
== END ==
LOC: M PAIN 14:45
PROVIDERS: ATTEND Family Medicine
DX: M51.16 Intervertebral disc disorders with radiculopathy, lumbar region (principal); L28.0 Lichen simplex chronicus; F33.9 Major depressive disorder, recurrent, unspecified; F41.1 Generalized anxiety disorder; R73.01 Impaired fasting glucose; G47.00 Insomnia, unspecified; G25.81 Restless legs syndrome; K21.9 Gastro-esophageal reflux disease without esophagitis; K58.1 Irritable bowel syndrome with constipation; D50.9 Iron deficiency anemia, unspecified; Z87.891 Personal history of nicotine dependence; Z88.2 Allergy status to sulfonamides; Z79.899 Other long term (current) drug therapy; Z88.6 Allergy status to analgesic agent; Z88.8 Allergy status to other drugs, medicaments and biological substances; Z91.018 Allergy to other foods; Z91.048 Other nonmedicinal substance allergy status

== ENCOUNTER → 2021-03-25 | Outpatient (CLI) | payer OTHER ==
--- NOTE | 2021-03-29 06:35 | ECWPNPC ---
PATIENT NAME: ALESSANDRA LYNN : 1965 GENDER: FEMALE VISIT DATE: 03/25/2021 DISCHARGE DATE: 03/25/21 1536 VISIT LOCKED DATE TIME: PHYSICIAN: LIZ ORTIZ PHYSICIAN PAGER NO: ACTIVE RESOURCE: LIZ ORTIZ REASON FOR APPOINTMENT 1. BACK PAIN HISTORY OF PRESENT ILLNESS PAIN CENTER INTAKE QUESTIONS: DO YOU HAVE A HISTORY OF MRSA? :NO DO YOU TAKE A BLOOD THINNERS? :NO DO YOU HAVE ANY BLEEDING DISORDERS? :NO ANY NEW NUMBNESS OR WEAKNESS IN YOUR LEGS OR ARMS? :NO ANY PACEMAKER,DEFIBRILLATOR, OR DORSAL COLUMN STIMULATOR? :NO DO YOU HAVE ANY RASHES OR OPEN SORES? :NO ARE YOU ALLERGIC TO IV DYE? :NO ARE YOU DIABETIC? :NO ANY NEW PROBLEMS WITH YOUR MEDICATIONS? :NO HAVE YOU RECEIVED A VACCINE IN THE PAST 30 DAYS? :NO DO YOU PLAN TO RECEIVE A VACCINE IN THE NEXT 21 DAYS? :NO DO YOU NEED ANY PRESCRIPTION? :NO DO YOU TAKE ANY IMMUNOSUPPRESSIVE MEDICATIONS? :NO DO YOU HAVE ANY KIDNEY OR LIVER DISEASE? :NO IS THERE A CHANCE YOU COULD BE ? :NO ARE YOU BREAST FEEDING? :NO GENERAL: HPI 55-YEAR-OLD FEMALE IN FOR CHRONIC PAIN FOLLOW-UP. SHE RATES HER PAIN CURRENTLY AT A 3 OUT OF 10 AND DESCRIBES IT SHOOTING AND SHARP. PATIENT FEELS HER MEDICATIONS ARE HELPFUL AND DENIES MED SIDE EFFECTS AT THIS TIME.. -. FALL RISK SCREENING: SCREENING : NO FALLS REPORTED IN THE LAST YEAR. PAIN SCREENING: PATIENT HAS A COMPLAINT OF ACUTE OR CHRONIC PAIN :YES LOCATION OF PAIN:BACK, RIGHT HIP, LEG(S) INTENSITY OF PAIN (SCALE OF 1 TO 10):3 WHAT DOES YOUR PAIN FEEL LIKE:SHOOTING, SHARP PAIN IS INCREASED BY:ACTIVITIES NURSING NOTE: -. CURRENT MEDICATIONS TAKING VITAMIN D (CHOLECALCIFEROL) 5000 TABLET 1 TAB ORALLY ONCE A DAY TAKING CALCIUM 600 + D 600-400 MG-UNIT TABLET 1 TABLET ORALLY BID TAKING MULTIVITAMINS OTC TABLET 1 TABLET ORALLY ONCE A DAY TAKING MILK THISTLE 1 CAPSULE 1 CAP(S) ORALLY BID TAKING VITAMIN B COMPLEX OTC TABLET 1 TABLET ORALLY ONCE A DAY TAKING FISH OIL 1000 MG CAPSULE 1 CAPSULE BY MOUTH ONCE A DAY TAKING FERROUS GLUCONATE 325 (36 FE) MG TABLET 1 TABLET ORALLY ONCE A DAY TAKING MIRALAX POWDER POWDER 17 GM ORALLY ONCE A DAY TAKING METAMUCIL 28.3 % POWDER DIRECTED ORALLY BEDTIME TAKING NARCAN 4 MG/0.1ML LIQUID DIRECTED NASALLY USE PRN RESPIRATORY SUPPRESSION OR OVERDOSE AND CALL 911 TAKING LIDOCAINE VISCOUS 2 % SOLUTION 15 ML TO AFFECTED AREA NEEDED MOUTH/THROAT EVERY 3 HRS TO WOUND AREAS FOR PAIN TAKING MUPIROCIN 2 % OINTMENT 1 APPLICATION TO EFFECTED AREA ON ARM, SMALL AMOUNT EXTERNALLY THREE TIMES A DAY ALFONSO (ORDER FROM [employer] MANUFACTUER) TAKING PANTOPRAZOLE SODIUM 40 MG TABLET DELAYED RELEASE 1 TABLET ORALLY BID TAKING HYDROXYZINE HCL 50 MG TABLET 2 TABLET ORALLY AT BEDTIME TAKING DICYCLOMINE HCL 10 MG CAPSULE 1 CAPSULES ORALLY THREE TIMES A DAY NEEDED FOR ABDOMINAL SPASM TAKING SERTRALINE HCL 100 MG TABLET 2 TABLETS ORALLY ONCE A DAY TAKING MORPHINE SULFATE 30 MG TABLET 1 TABLET NEEDED ORALLY EVERY 4 HRS PRN PAIN MDD=6 TAKING KLONOPIN 1 MG TABLET 1 TABLET ORALLY, CODE A THREE TIMES A DAY NEEDED MDD3 NOT-TAKING LINZESS 145 MCG CAPSULE 1 CAPSULE AT LEAST 30 MINUTES BEFORE THE FIRST MEAL OF THE DAY ON AN EMPTY STOMACH ORALLY ONCE A DAY UNKNOWN CAMPHOR-MENTHOL _ OINTMENT APPLY TOPICALLY EXTERNALLY TWICE A DAY X 7 DAYS WITH FLARES C CLOBETASOL 0.05% OINTMENT MEDICATION LIST REVIEWED AND RECONCILED WITH THE PATIENT PAST MEDICAL HISTORY NEURODERMATITIS-AGREED UPON BY KEON AND DR. JACQUELINE CASTRO AT [facility] MDD, RECURRENT/CHETNA CERVICAL/LUMBAR DJD BORDERLINE PROLONGED QTC SYNDROME/HISTORY OF SYNCOPE NOT CORRELATED TO CARDIAC ARRHYTHMIA IMPAIRED FASTING GLUCOSE INSOMNIA/RESTLESS LEG SYNDROME GERD/DYSPEPSIA DYSMENORRHEA IBS CONSTIPATION TYPE MITRAL VALVE PROLAPSE/TRACE MR BY TTE NOVEMBER 2010-WAN/ [employer] SPECT-LOW RISK-WAN IRON-DEFICIENCY ANEMIA MUCOSAL PROLAPSE SYNDROME STATUS POST TEMS PROCEDURE LA GRADE B ESOPHAGITIS AND DENTATE LINE ACUTE GENERALIZED URTICARIA S ANGIODEMA-? HONEY DUARTE EXPOSURE02/2018 HO NICOTINE USE-1 PPD X 3Y, QUIT IN 1984 ALLERGIES NSAIDS: RINGING OF EARS - SIDE EFFECTS FISH OIL (CERTAIN BRANDS ONLY): SWELLING - SIDE EFFECTS SULFA: RASH,DIARRHEA - ALLERGY HONEY MANGOS: SWELLING, RASH, ITCH TAPE: RASH - ALLERGY SURGICAL HISTORY TEMS-[facility] AT [place] 07/2011 FELL DOING LAUNDRY, BROKE L FEMUR WITH ORIF 2000 FAMILY HISTORY FATHER: ALIVE, DIAGNOSED WITH HYPERTENSION MOTHER: ALIVE, HYPERTENSION 2 SISTER(S) - HEALTHY. 1 CAD/CVA/CANCERS IN 1DR. HOSPITALIZATION/MAJOR DIAGNOSTIC PROCEDURE FELL DOING LAUNDRY, BROKE L FEMUR WITH ORIF 2000 IRON DEFICIENCY ANEMIA 12/2016 IRON DEFICIENCY ANEMIA 06/07-06/08 RECEIVED BLOOD TRANSFUSION- DUE TO HEAD LACERATION 05/2019 REVIEW OF SYSTEMS CONSTITUTIONAL: ANY RECENT FEVER NO . CHILLS NO . WEIGHT CHANGE OF UNKNOWN REASONS NO . GASTROENTEROLOGY: NEW UNEXPLAINABLE CHANGES IN BOWEL CONTROL NO . CONSTIPATION NO . GENITOURINARY: ANY NEW CHANGE IN BLADDER CONTROL? NO . NEUROLOGY: NEW ONSET DIZZINESS OR NEUROLOGICAL CHANGES NOT MENTIONED NO . NEW NUMBNESS OR PAIN PATTERNS NOT MENTIONED AND PERTINENT TO TODAY'S VISIT NO . CARDIOLOGY: NEW CHEST PRESSURE NO . PATIENT DENIES NO . RESPIRATORY: UNEXPLAINABLE COUGH NO . NEW SHORTNESS OF BREATH NO . VITAL SIGNS WT 180.6 LBS, HT 65 IN, BMI 30.05 INDEX, BP 145/76 MM HG, HR 58 /MIN, RR 20 /MIN, TEMP 95.5 F, OXYGEN SAT % 96%, NA INITIALS SC 14:58, REVIEWED BY: KG. EXAMINATION GENERAL EXAMINATION: GENERALNO ACUTE DISTRESS, WELL NOURISHED AND HYDRATED. PSYCHAPPROPRIATE MOOD AND AFFECT . LUNGS:CLEAR TO AUSCULTATION BILATERALLY, NO WHEEZES, RHONCHI, RALES. HEART:NO MURMURS, REGULAR RATE AND RHYTHM. ASSESSMENTS CHRONIC USE OF OPIATE DRUG FOR THERAPEUTIC PURPOSE - Z79.891 LUMBAR DISC DISEASE WITH RADICULOPATHY - M51.16 TREATMENT CHRONIC USE OF OPIATE DRUG FOR THERAPEUTIC PURPOSE START TIZANIDINE HCL TABLET, 4 MG, 1 TABLET NEEDED, ORALLY, THREE TIMES A DAY, 30 DAYS, 90 TABLET, REFILLS 1 LAB: URINE TEST GROUP TWAN SWAIN 03/25/2021 3:35:28 PM > CANCEL PER PROVIDER LAST UTOX: 11/28 NOTES: 55-YEAR-OLD FEMALE IN FOR CHRONIC PAIN FOLLOW-UP. GIVEN PRESENTING SYMPTOMS RECOMMEND STARTING TIZANIDINE GIVEN PATIENT'S INCREASED SPASMS WITH FOLLOW-UP IN 2 MONTHS TO DETERMINE EFFICACY OF TREATMENT. PATIENT HAS EXPRESSED UNDERSTANDING OF AND WAS IN AGREEMENT WITH TREATMENT PLAN. GIVEN TIME TO ASK QUESTIONS AND EXPRESS CONCERNS. ISTOP REGISTRY REVIEWED AND DEMONSTRATES COMPLLIANCE. (REF # [id number] ) BRINGS IN MEDICATIONS WHICH IS APPROPRIATE FOR WHAT WAS DISPENSED. RECENT URINE TOXICOLOGY REVIEWED. NO UNAUTHORIZED MEDICATIONS. NO ILLICIT SUBSTANCES AND PRESCRIBED MEDICATIONS WERE PRESENT. PROCEDURE CODES FA211 ESTABILISHED PATIENT [facility] FACILITY CHARGE DISPOSITION & COMMUNICATION FOLLOW UP 2 MONTHS (REASON: NEW MED) ELECTRONICALLY SIGNED BY ARIADNA DECKER ON 03/28/2021 AT 10:11 AM EDT DISCLAIMER : THIS IS A VISIT SUMMARY EXTRACTED FROM THE [facility] CHART. IT IS NOT A COPY OF THE [facility] PROGRESS NOTE. KENNETH
== END ==
LOC: M PAIN 14:45
PROVIDERS: ATTEND Family Medicine
DX: M51.16 Intervertebral disc disorders with radiculopathy, lumbar region (principal); G89.29 Other chronic pain; G25.81 Restless legs syndrome; K21.9 Gastro-esophageal reflux disease without esophagitis; D50.9 Iron deficiency anemia, unspecified; Z86.59 Personal history of other mental and behavioral disorders; Z88.0 Allergy status to penicillin; Z88.6 Allergy status to analgesic agent; Z91.018 Allergy to other foods; Z91.09 Other allergy status, other than to drugs and biological substances; Z79.899 Other long term (current) drug therapy

== ENCOUNTER → 2021-07-06 | Outpatient (CLI) | payer OTHER | LOC: M PAIN 14:30 | PROVIDERS: ATTEND Anesthesiology | DX: M51.16 Intervertebral disc disorders with radiculopathy, lumbar region (principal); M54.2 Cervicalgia; K62.89 Other specified diseases of anus and rectum; L28.0 Lichen simplex chronicus; F33.9 Major depressive disorder, recurrent, unspecified; F41.1 Generalized anxiety disorder; R73.01 Impaired fasting glucose; G47.00 Insomnia, unspecified; G25.81 Restless legs syndrome; K21.9 Gastro-esophageal reflux disease without esophagitis; R10.13 Epigastric pain; K58.1 Irritable bowel syndrome with constipation; D50.9 Iron deficiency anemia, unspecified; Z79.891 Long term (current) use of opiate analgesic; Z87.891 Personal history of nicotine dependence; Z79.899 Other long term (current) drug therapy; Z88.2 Allergy status to sulfonamides; Z88.6 Allergy status to analgesic agent; Z88.8 Allergy status to other drugs, medicaments and biological substances; Z91.018 Allergy to other foods; Z91.048 Other nonmedicinal substance allergy status ==

== ENCOUNTER → 2021-07-07 | Outpatient (CLI) | payer OTHER ==
[2021-07-07 12:10] LABS: BASO % 0.7 % (0.0-1.0); EOS # 0.2 10^3/uL (0.0-0.5); EOS % 2.9 % (0.0-3.0); HEMATOCRIT 43.2 % (36.0-47.0); HEMOGLOBIN 14.3 g/dl (12.0-15.5); LYMPH # 1.7 10^3/uL (1.5-5.0); LYMPH % 30.2 % (24.0-44.0); MEAN CORPUSCULAR HEMOGLOBIN 28.7 pg (27.0-33.0); MEAN CORPUSCULAR HGB CONC 33.1 g/dl (32.0-36.5); MEAN CORPUSCULAR VOLUME 86.6 fl (80.0-96.0); MONO # 0.4 10^3/uL (0.0-0.8); NEUTROPHILS # 3.2 10^3/uL (1.5-8.5); PLATELET COUNT, AUTOMATED 216 10^3/uL (150-450); RED BLOOD COUNT 4.99 10^6/uL (4.00-5.40); WHITE BLOOD COUNT 5.5 10^3/uL (4.0-10.0)
[2021-07-07 12:49] LABS: ALBUMIN 3.8 GM/DL (3.2-5.2); ALT/SGPT 23 U/L (12-78); BILIRUBIN,TOTAL 0.4 MG/DL (0.2-1.0); BLOOD UREA NITROGEN 14 MG/DL (7-18); CALCIUM LEVEL 9.4 MG/DL (8.5-10.1); CARBON DIOXIDE LEVEL 31 MEQ/L (21-32); CHLORIDE LEVEL 109 MEQ/L (98-107); CHOLESTEROL LEVEL 219 MG/DL (<200); CHOLESTEROL RISK RATIO 3.369 (<5); CREATININE FOR GFR 0.92 MG/DL (0.55-1.30); FERRITIN 131 NG/ML (8-252); FREE T4 1.08 NG/DL (0.76-1.46); GLOMERULAR FILTRATION RATE > 60.0 (>51); GLUCOSE, FASTING 110 MG/DL (70-100); HDL CHOLESTEROL 65 MG/DL (>40); LDL CHOLESTEROL 127 MG/DL (<100); MAGNESIUM LEVEL 2.4 MG/DL (1.8-2.4); NON-HDL-C 154 MG/DL; NT-PRO BNP 144 PG/ML (<125); POTASSIUM SERUM 3.8 MEQ/L (3.5-5.1); PTH INTACT 89.6 PG/ML (18.5-88.0); SODIUM LEVEL 140 MEQ/L (136-145); TOTAL 25(OH) VITAMIN D 65.7 NG/ML (30.0-100.0); TOTAL PROTEIN 6.5 GM/DL (6.4-8.2); TRIGLYCERIDES LEVEL 134 MG/DL (<150); VITAMIN B12 LEVEL 1545 PG/ML (247-911)
== END ==
LOC: M LAB 11:41
PROVIDERS: ATTEND Family Medicine
DX: I10 Essential (primary) hypertension (principal)

== ENCOUNTER → 2022-05-01 | Outpatient (CLI) | payer OTHER | LOC: M PAIN 14:45 | PROVIDERS: ATTEND Anesthesiology | DX: M51.16 Intervertebral disc disorders with radiculopathy, lumbar region (principal); L28.0 Lichen simplex chronicus; F33.9 Major depressive disorder, recurrent, unspecified; F41.1 Generalized anxiety disorder; G47.00 Insomnia, unspecified; M50.30 Other cervical disc degeneration, unspecified cervical region; M51.36 Other intervertebral disc degeneration, lumbar region; R73.01 Impaired fasting glucose; R94.31 Abnormal electrocardiogram [ECG] [EKG]; G25.81 Restless legs syndrome; K21.00 Gastro-esophageal reflux disease with esophagitis, without bleeding; R10.13 Epigastric pain; N94.6 Dysmenorrhea, unspecified; K58.1 Irritable bowel syndrome with constipation; I34.1 Nonrheumatic mitral (valve) prolapse; D50.9 Iron deficiency anemia, unspecified; I10 Essential (primary) hypertension; Z87.891 Personal history of nicotine dependence; Z79.891 Long term (current) use of opiate analgesic; Z79.899 Other long term (current) drug therapy; Z88.8 Allergy status to other drugs, medicaments and biological substances; Z91.048 Other nonmedicinal substance allergy status ==

== ENCOUNTER → 2022-05-02 | Outpatient (CLI) | payer OTHER | LOC: M PAIN 14:30 | PROVIDERS: ATTEND Nurse Practitioner Family | DX: Z79.891 Long term (current) use of opiate analgesic (principal) ==

== ENCOUNTER → 2022-10-19 | Outpatient (CLI) | payer OTHER | LOC: M PAIN 14:00 | PROVIDERS: ATTEND Anesthesiology | DX: G89.4 Chronic pain syndrome (principal); M50.10 Cervical disc disorder with radiculopathy, unspecified cervical region; G89.29 Other chronic pain; G25.81 Restless legs syndrome; K21.9 Gastro-esophageal reflux disease without esophagitis; I10 Essential (primary) hypertension; Z86.59 Personal history of other mental and behavioral disorders; Z87.891 Personal history of nicotine dependence; Z88.1 Allergy status to other antibiotic agents; Z91.09 Other allergy status, other than to drugs and biological substances; Z79.899 Other long term (current) drug therapy ==

== ENCOUNTER → 2023-05-16 | Outpatient (CLI) | payer OTHER | LOC: M PAIN 11:30 | PROVIDERS: ATTEND Anesthesiology | DX: M54.50 Low back pain, unspecified (principal); G89.4 Chronic pain syndrome; M79.10 Myalgia, unspecified site; M50.10 Cervical disc disorder with radiculopathy, unspecified cervical region; D50.9 Iron deficiency anemia, unspecified; G89.29 Other chronic pain; G25.81 Restless legs syndrome; K21.9 Gastro-esophageal reflux disease without esophagitis; F33.9 Major depressive disorder, recurrent, unspecified; K58.2 Mixed irritable bowel syndrome; I10 Essential (primary) hypertension; Z86.59 Personal history of other mental and behavioral disorders; Z87.891 Personal history of nicotine dependence; Z88.1 Allergy status to other antibiotic agents; Z91.09 Other allergy status, other than to drugs and biological substances; Z79.899 Other long term (current) drug therapy ==

== ENCOUNTER → 2023-09-13 | Outpatient (CLI) | payer OTHER | LOC: M PAIN 15:30 | PROVIDERS: ATTEND Anesthesiology | DX: M51.16 Intervertebral disc disorders with radiculopathy, lumbar region (principal); Z79.891 Long term (current) use of opiate analgesic; M54.2 Cervicalgia; G89.29 Other chronic pain; K21.9 Gastro-esophageal reflux disease without esophagitis; K58.2 Mixed irritable bowel syndrome; D50.9 Iron deficiency anemia, unspecified; Z87.891 Personal history of nicotine dependence; Z79.899 Other long term (current) drug therapy; Z88.8 Allergy status to other drugs, medicaments and biological substances; Z91.048 Other nonmedicinal substance allergy status ==

== ENCOUNTER → 2023-10-24 | Outpatient (CLI) | payer OTHER | LOC: M PAIN 16:30 | PROVIDERS: ATTEND Anesthesiology | DX: M54.6 Pain in thoracic spine (principal); Z79.891 Long term (current) use of opiate analgesic; M54.50 Low back pain, unspecified; M47.816 Spondylosis without myelopathy or radiculopathy, lumbar region; M47.812 Spondylosis without myelopathy or radiculopathy, cervical region; G89.29 Other chronic pain; K21.9 Gastro-esophageal reflux disease without esophagitis; K58.2 Mixed irritable bowel syndrome; D50.9 Iron deficiency anemia, unspecified; I10 Essential (primary) hypertension; Z87.891 Personal history of nicotine dependence; Z79.899 Other long term (current) drug therapy; Z88.8 Allergy status to other drugs, medicaments and biological substances; Z91.048 Other nonmedicinal substance allergy status ==

== ENCOUNTER → 2023-11-08 | Outpatient (CLI) | payer OTHER | LOC: M PAIN 16:15 → M TMPAIN 16:15 | PROVIDERS: ATTEND Anesthesiology | DX: M54.50 Low back pain, unspecified (principal); Z79.891 Long term (current) use of opiate analgesic; M54.2 Cervicalgia; M51.36 Other intervertebral disc degeneration, lumbar region; K21.9 Gastro-esophageal reflux disease without esophagitis; D50.9 Iron deficiency anemia, unspecified; I10 Essential (primary) hypertension; R73.01 Impaired fasting glucose; F32.9 Major depressive disorder, single episode, unspecified; F41.1 Generalized anxiety disorder; K58.2 Mixed irritable bowel syndrome; Z87.891 Personal history of nicotine dependence; Z79.899 Other long term (current) drug therapy; Z91.048 Other nonmedicinal substance allergy status; Z88.8 Allergy status to other drugs, medicaments and biological substances ==

== ENCOUNTER → 2024-02-06 | Outpatient (CLI) | payer OTHER | LOC: M PAIN 17:00 | PROVIDERS: ATTEND Anesthesiology | DX: M79.18 Myalgia, other site (principal); Z79.891 Long term (current) use of opiate analgesic; M54.50 Low back pain, unspecified; F33.9 Major depressive disorder, recurrent, unspecified; F41.1 Generalized anxiety disorder; F51.05 Insomnia due to other mental disorder; M50.30 Other cervical disc degeneration, unspecified cervical region; M51.36 Other intervertebral disc degeneration, lumbar region; R73.01 Impaired fasting glucose; G25.81 Restless legs syndrome; K21.00 Gastro-esophageal reflux disease with esophagitis, without bleeding; D50.9 Iron deficiency anemia, unspecified; I10 Essential (primary) hypertension; K58.2 Mixed irritable bowel syndrome; Z87.891 Personal history of nicotine dependence; Z79.899 Other long term (current) drug therapy; Z91.048 Other nonmedicinal substance allergy status; Z88.8 Allergy status to other drugs, medicaments and biological substances ==

== ENCOUNTER → 2024-04-16 | Outpatient (CLI) | payer OTHER | LOC: M PAIN 16:30 | PROVIDERS: ATTEND Anesthesiology | DX: M47.816 Spondylosis without myelopathy or radiculopathy, lumbar region (principal); M25.552 Pain in left hip; L28.0 Lichen simplex chronicus; F33.9 Major depressive disorder, recurrent, unspecified; F41.1 Generalized anxiety disorder; G47.00 Insomnia, unspecified; M47.812 Spondylosis without myelopathy or radiculopathy, cervical region; R73.01 Impaired fasting glucose; G25.81 Restless legs syndrome; K21.9 Gastro-esophageal reflux disease without esophagitis; D50.9 Iron deficiency anemia, unspecified; K58.2 Mixed irritable bowel syndrome; I10 Essential (primary) hypertension; Z87.891 Personal history of nicotine dependence; Z79.899 Other long term (current) drug therapy; Z88.8 Allergy status to other drugs, medicaments and biological substances; Z91.048 Other nonmedicinal substance allergy status ==

== ENCOUNTER → 2024-07-09 | Outpatient (CLI) | payer OTHER | LOC: M PAIN 17:00 | PROVIDERS: ATTEND Anesthesiology | DX: M47.816 Spondylosis without myelopathy or radiculopathy, lumbar region (principal); F33.9 Major depressive disorder, recurrent, unspecified; F41.1 Generalized anxiety disorder; F51.05 Insomnia due to other mental disorder; M47.812 Spondylosis without myelopathy or radiculopathy, cervical region; R73.01 Impaired fasting glucose; K58.2 Mixed irritable bowel syndrome; D50.9 Iron deficiency anemia, unspecified; I10 Essential (primary) hypertension; Z87.891 Personal history of nicotine dependence; Z91.018 Allergy to other foods; Z91.048 Other nonmedicinal substance allergy status; Z88.8 Allergy status to other drugs, medicaments and biological substances ==

== ENCOUNTER → 2024-10-01 | Outpatient (CLI) | payer OTHER | LOC: M PAIN 08:30 | PROVIDERS: ATTEND Anesthesiology | DX: M47.816 Spondylosis without myelopathy or radiculopathy, lumbar region (principal); M46.96 Unspecified inflammatory spondylopathy, lumbar region; Z79.891 Long term (current) use of opiate analgesic; Z87.891 Personal history of nicotine dependence; Z79.899 Other long term (current) drug therapy; Z88.8 Allergy status to other drugs, medicaments and biological substances; Z91.018 Allergy to other foods; Z91.048 Other nonmedicinal substance allergy status ==

== ENCOUNTER 2024-12-15 11:51 | Outpatient (CLI) | payer OTHER ==
[~2024-12-15] VITALS: Ht 165.1 cm; Wt 78.2 kg
[2024-12-15 12:47] LABS: BASO % 0.4 % (0.0-1.0); EOS % 0.1 % (0.0-3.0); HEMATOCRIT 42.4 % (36.0-47.0); HEMOGLOBIN 14.3 g/dl (12.0-15.5); LYMPH # 0.9 10^3/uL (1.5-5.0); LYMPH % 11.2 % (24.0-44.0); MEAN CORPUSCULAR HEMOGLOBIN 28.7 pg (27.0-33.0); MEAN CORPUSCULAR HGB CONC 33.7 g/dl (32.0-36.5); MEAN CORPUSCULAR VOLUME 85.1 fl (80.0-96.0); MONO # 0.4 10^3/uL (0.0-0.8); MONO % 4.7 % (2.0-8.0); NEUTROPHILS # 6.4 10^3/uL (1.5-8.5); NEUTROPHILS % 83.2 % (36.0-66.0); PLATELET COUNT, AUTOMATED 234 10^3/uL (150-450); RED BLOOD COUNT 4.98 10^6/uL (4.00-5.40); WHITE BLOOD COUNT 7.7 10^3/uL (4.0-10.0)
[2024-12-15 13:09] LABS: ERYTHROCYTE SEDIMENTATION RATE 14 mm/hr (0-30)
[2024-12-15 13:16] LABS: FERRITIN 183.2 NG/ML (7.3-270.7); VITAMIN B12 LEVEL 569 PG/ML (211-911)
[2024-12-15 13:21] LABS: ALBUMIN 4.5 G/DL (3.2-5.2); ALKALINE PHOSPHATASE 125 U/L (35-104); ALT/SGPT 23 U/L (7.0-40); AST/SGOT 22 U/L (<34); BILIRUBIN,TOTAL 0.5 MG/DL (0.3-1.2); BLOOD UREA NITROGEN 17 MG/DL (9-23); CALCIUM LEVEL 10.1 MG/DL (8.5-10.1); CARBON DIOXIDE LEVEL 26 MMOL/L (20-31); CHLORIDE LEVEL 107 MMOL/L (98-107); CREATININE FOR GFR 0.86 MG/DL (0.55-1.30); GLOMERULAR FILTRATION RATE > 60.0 (>51); GLUCOSE, FASTING 88 MG/DL (60-100); MAGNESIUM LEVEL 2.2 MG/DL (1.8-2.4); POTASSIUM SERUM 4.2 MMOL/L (3.5-5.1); SODIUM LEVEL 142 MMOL/L (136-145); TOTAL PROTEIN 7.1 G/DL (5.7-8.2)
[2024-12-15] MEDS: ZOLEDRONIC ACID 5 MG in IV 1 EA IV ONE (13:59)
[2024-12-15 14:00] VITALS: BP 163/79; O2SAT 98
[2024-12-15 14:45] VITALS: BP 144/75; O2SAT 96
[2024-12-15] MEDS ORDERED: ZOLEDRONIC ACID 5 MG in IV 1 EA IV ONE (16:00)
== END 2024-12-15 14:45 ==
LOC: M INFU 11:51
PROVIDERS: ATTEND Family Medicine
DX: M85.9 Disorder of bone density and structure, unspecified (principal); Z88.2 Allergy status to sulfonamides; Z88.5 Allergy status to narcotic agent; Z88.8 Allergy status to other drugs, medicaments and biological substances; Z88.6 Allergy status to analgesic agent
CPT/HCPCS: 36415; 80053; 81479; 82607; 82728; 83520; 83735; 85025; 85652; 86140; 96365; J3489